=== PATIENT | male | born 1970 | race Caucasian/White ===

== ENCOUNTER 2019-05-26 17:48 | Inpatient (IN) | payer MEDICAID ==
[~2019-05-26] VITALS: Ht 180.3 cm; Wt 87.5 kg
[2019-05-26 20:00] VITALS: BP 145/82
--- NOTE | 2019-05-26 20:00 | NUR ---
ADMISSION 48 y/o male admitted for shortness of breath. Place on 2LPM via NC, denies anxiety. Ambulates independently. Skin intact. Orientation to room, unit, staff. Instructed to use call light for assistance, verbalized understanding.
[2019-05-27] VITALS: BP 132/87
[2019-05-27] MEDS ORDERED: ENOXAPARIN SODIUM 40 MG/0.4 ML DISP.SYRIN SQ SCH
[2019-05-27] MEDS ORDERED: HYDROCODONE/APAP 5/325MG 1 EACH TABLET PO PRN
[2019-05-27] MEDS ORDERED: Z GUARD REMEDY 2 OZ OINT TP PRN
[2019-05-27] MEDS ORDERED: MAG HYDROX/AL HYDROX/SIMETH 30 ML UDC PO PRN
[2019-05-27] MEDS ORDERED: MAGNESIUM HYDROXIDE 30 ML UDC PO PRN
[2019-05-27] MEDS ORDERED: ACETAMINOPHEN 325 MG TABLET PO PRN
[2019-05-27] MEDS ORDERED: ONDANSETRON HCL/PF 4 MG/2 ML VIAL IVP PRN
[2019-05-27 00:15] VITALS: BP 132/87
[2019-05-27] MEDS: ENOXAPARIN SODIUM 40 MG/0.4 ML DISP.SYRIN SQ SCH ×2 (01:27→21:47)
--- NOTE | 2019-05-27 06:28 | NUR ---
END OF SHIFT REPORT Patient in bed, awake, A/O x4. On supplemental Oxygen at 2LPM via NC, shortness of breath with exertion, denies at rest. Ambulates independently, voiding without difficulty. Lab today as planned, MRSA surveillance specimen send to lab. Will endorse to Oncoming RN.
[2019-05-27] MEDS ORDERED: INFLUENZA VACCINE 2019-20 0.5 ML DISP.SYRIN IM ONE (06:30)
[2019-05-27 07:25] LABS: BASOPHILS # (AUTO) 0.1 /CMM (0.0-0.2); BASOPHILS % (AUTO) 0.4 % (0.0-2.0); HEMATOCRIT 46 % (39-51); HEMOGLOBIN 15.2 g/dL (13.5-17.5); LYMPHOCYTES # (AUTO) 0.9 /CMM (0.8-4.8); MEAN CORPUSCULAR HGB CONC 33 g/dl (31.0-36.0); MEAN CORPUSCULAR VOLUME 88 fL (80-96); MONOCYTES # (AUTO) 0.8 /CMM (0.1-1.30); MONOCYTES % (AUTO) 4.2 % (2.0-12.0); NEUTROPHILS # (AUTO) 16.4 /CMM (1.8-8.9); NEUTROPHILS % (AUTO) 90.4 % (43.0-81.0); PLATELET COUNT (AUTO) 365 /CMM (150-450); RED BLOOD CELL COUNT(AUTO) 5.23 MIL/uL (4.5-6.0); WHITE BLOOD COUNT (AUTO) 18.2 K/uL (4.3-11.0)
[2019-05-27 07:29] LABS: CALCIUM, SERUM 8.6 mg/dL (8.5-10.1); CREATININE 0.7 mg/dL (0.6-1.3); MAGNESIUM 2.2 mg/dL (1.8-2.4); PHOSPHORUS 3.9 mg/dL (2.5-4.9); POTASSIUM 4.1 mmol/L (3.5-5.1)
[2019-05-27 07:42] LABS: THYROID STIMULATING HORMONE 1.847 uIU/mL (0.358-3.74)
[2019-05-27] MEDS: IPRATROPIUM NEB FS 0.5 MG/2.5 ML AMPUL.NEB NEB SCH ×4 (08:12→20:22)
[2019-05-27] MEDS: ALBUTEROL FS 2.5 MG/0.5 ML VIAL.NEB NEB SCH ×4 (08:12→20:22)
[2019-05-27 08:43] VITALS: BP 139/80
[2019-05-27] MEDS: methylPREDNISolone SOD SUCC 40 MG/ML VIAL IV SCH ×3 (09:50→17:46)
[2019-05-27] MEDS: CEFTRIAXONE 1 G in IV D5W 50 ML IV SCH (11:53)
[2019-05-27] MEDS: AZITHROMYCIN 250 MG TABLET PO SCH (12:01)
[2019-05-27 15:55] VITALS: BP 144/87
--- NOTE | 2019-05-27 19:22 | NUR ---
CHANGE OF SHIFT REPORT Patient in bed, awake. On supplemental Oxygen at 2LPM via NC, tolerating well. Appears comfortable, denies chest pain. Urine, sputum specimen to be collected. Maintained safety.
[2019-05-27 20:00] VITALS: BP 133/80
--- NOTE | 2019-05-27 21:31 | NUR ---
Patient lives with family in [place]. He is ambulatory and independent with adl's. Has no DME or homehealth reported. His family will provide ride when discharge. Addendum: 05/27/19 at 2131 by DIAMANTE MCKINLEY RN Amended: Links added.
[2019-05-27 23:07] LABS: APPEARANCE,URINE CLEAR (CLEAR); BILIRUBIN,URINE NEGATIVE (NEGATIVE); BLOOD, URINE NEGATIVE Ery/uL (NEGATIVE); COLOR,URINE YELLOW (YELLOW); KETONES,URINE NEGATIVE (NEGATIVE); LEUKOCYTE ESTERASE ,URINE NEGATIVE (NEGATIVE); NITRITE, URINE NEGATIVE (NEGATIVE); PROTEIN,URINE NEGATIVE (NEGATIVE); UGLUCOSE 250 MG/DL mg/dL (NEGATIVE); UROBILINOGEN,URINE 0.2 EU/dL (0.2)
--- NOTE | 2019-05-28 06:10 | NUR ---
END OF SHIFT REPORT Patient in bed, awake, A/O x4. Remains on supplemental Oxygen at 2LPM via NC, denies shortness of breath at rest and with exertion. IV antibiotic as scheduled, no acute events overnight. Respiratory cx G/S pending, sputum not available at this time. Will endorse to Oncoming RN.
[2019-05-28 07:01] LABS: BASOPHILS % (AUTO) 0.1 % (0.0-2.0); HEMATOCRIT 47 % (39-51); HEMOGLOBIN 15.6 g/dL (13.5-17.5); LYMPHOCYTES % (AUTO) 5.2 % (20.0-44.0); MEAN CORPUSCULAR HGB CONC 33 g/dl (31.0-36.0); MEAN CORPUSCULAR VOLUME 88 fL (80-96); MONOCYTES # (AUTO) 0.8 /CMM (0.1-1.30); MONOCYTES % (AUTO) 4.1 % (2.0-12.0); NEUTROPHILS # (AUTO) 17.6 /CMM (1.8-8.9); NEUTROPHILS % (AUTO) 90.6 % (43.0-81.0); PLATELET COUNT (AUTO) 373 /CMM (150-450); RED BLOOD CELL COUNT(AUTO) 5.33 MIL/uL (4.5-6.0); WHITE BLOOD COUNT (AUTO) 19.5 K/uL (4.3-11.0)
[2019-05-28 07:07] LABS: CALCIUM, SERUM 8.8 mg/dL (8.5-10.1); CREATININE 0.7 mg/dL (0.6-1.3); MAGNESIUM 2.2 mg/dL (1.8-2.4); POTASSIUM 4.2 mmol/L (3.5-5.1)
--- NOTE | 2019-05-28 08:00 | NUR ---
m/s street light servicer: initial assessment received pt in bed awake, a/ox4. no c/o pain, sob, or any discomfort. pt feels much better as stated. no wheezing to andre lobes noted at this time. instructed to call for assistance. will continue to monitor.
[2019-05-28] MEDS: ALBUTEROL FS 2.5 MG/0.5 ML VIAL.NEB NEB SCH ×2 (08:27→11:57)
[2019-05-28] MEDS: IPRATROPIUM NEB FS 0.5 MG/2.5 ML AMPUL.NEB NEB SCH ×2 (08:27→11:57)
[2019-05-28] MEDS: methylPREDNISolone SOD SUCC 40 MG/ML VIAL IV SCH (09:05)
[2019-05-28 09:57] VITALS: BP 116/77
--- NOTE | 2019-05-28 10:00 | NUR ---
m/s apparatus cleaner: md visit seen and examined by zachery whittington (acnp) at this time. pt for discharge planning home today. discharge instructions with prescriptions given by zachery pt verbalized understanding. informed pt to wait to get his flu vaccine once he feels better per dmitriy, pt verbalized understanding.
[2019-05-28] MEDS ORDERED: METH4TAB3 PO (10:01)
[2019-05-28] MEDS ORDERED: AZIT250T PO (10:01)
[2019-05-28] MEDS ORDERED: ALBU18HF2 INH (10:01)
[2019-05-28] MEDS: CEFTRIAXONE 1 G in IV D5W 50 ML IV SCH (11:06)
--- NOTE | 2019-05-28 11:33 | NUR ---
EXTRACTION MACHINE OPERATOR and pt's RN Jake met with the pt. bedside to discuss discharge plan. Pt. denies being homeless and lives with this mother in [place]. Pt stated, his mother will be coming to pick him up.
[2019-05-28] MEDS: AZITHROMYCIN 250 MG TABLET PO SCH (11:53)
--- NOTE | 2019-05-28 12:00 | NUR ---
m/s criminal profiler: notes discharge instructions given with e script prescriptions to pt and verbalized understanding. mother will pick him up in an hour per telephone conversation. pt made aware.
--- NOTE | 2019-05-28 13:00 | NUR ---
m/s security patrol driver: notes still awaiting for family to pick him up. pt resting comfortable. no distress noted.
--- NOTE | 2019-05-28 14:40 | NUR ---
m/s nutrition club ambassador: notes father here to picking machine operator helper the pt, mother couldn't make it due to previous appointment per family. h/l removed with tip intact. pt getting ready. all belongings/valuables returned to pt.
--- NOTE | 2019-05-28 14:48 | NUR ---
m/s insight leader: discharged discharged home accompanied by father via private car in stable condition with all valuables and d'c papers.
== END 2019-05-28 14:45 | disposition home or self-care (01) | DRG 140 ==
LOC: TELE 20:39 → MED 05-27 01:38
PROVIDERS: ADMIT Nurse Practitioner Acute Care; ATTEND Registered Nurse
DX: J44.1 Chronic obstructive pulmonary disease with (acute) exacerbation (principal); J15.9 Unspecified bacterial pneumonia; Z82.5 Family history of asthma and other chronic lower respiratory diseases; Z87.891 Personal history of nicotine dependence; Z83.3 Family history of diabetes mellitus; Z98.890 Other specified postprocedural states; J40 Bronchitis, not specified as acute or chronic
CPT/HCPCS: 36415; 80048-TC; 80061-TC; 81000-TC; 83735-TC; 84100-TC; 84443-TC; 85025-TC; 87081-TC; G0378; J0696; J1650; J2920; J7060

== ENCOUNTER 2019-08-11 10:59 | Emergency (ER) | payer MEDICAID ==
[~2019-08-11] VITALS: Ht 180.3 cm; Wt 91.2 kg
[~2019-08-11 10:59] MED LIST: ALBU18HF2 INH; AZIT250T PO; METH4TAB3 PO
[2019-08-11 12:19] LABS: BASOPHILS # (AUTO) 0.1 /CMM (0.0-0.2); BASOPHILS % (AUTO) 1.3 % (0.0-2.0); EOSINOPHILS % (AUTO) 6.7 % (0.0-6.0); HEMATOCRIT 44 % (39-51); HEMOGLOBIN 15.1 g/dL (13.5-17.5); LYMPHOCYTES # (AUTO) 1.7 /CMM (0.8-4.8); LYMPHOCYTES % (AUTO) 18.6 % (20.0-44.0); MEAN CORPUSCULAR HGB CONC 34 g/dl (31.0-36.0); MEAN CORPUSCULAR VOLUME 88 fL (80-96); MONOCYTES # (AUTO) 0.5 /CMM (0.1-1.30); MONOCYTES % (AUTO) 5.6 % (2.0-12.0); NEUTROPHILS # (AUTO) 6.3 /CMM (1.8-8.9); NEUTROPHILS % (AUTO) 67.8 % (43.0-81.0); PLATELET COUNT (AUTO) 346 /CMM (150-450); RED BLOOD CELL COUNT(AUTO) 5.05 MIL/uL (4.5-6.0); WHITE BLOOD COUNT (AUTO) 9.2 K/uL (4.3-11.0)
[2019-08-11 12:21] LABS: CARBON DIOXIDE 32 mmol/L (21-32); CHLORIDE 106 mmol/L (98-107); CREATININE 1.3 mg/dL (0.6-1.3); GLUCOSE 170 mg/dL (74-106); SODIUM SERUM 142 mmol/L (136-145); UREA NITROGEN, BLOOD 17 mg/dL (7-18)
[2019-08-11 12:34] LABS: ALANINE AMINOTRANSFERASE 13 U/L (12-78); ALBUMIN 3.5 g/dL (3.4-5.0); ALKALINE PHOSPHATASE 72 U/L (46-116); ASPARTATE AMINOTRANSFERASE 3 U/L (15-37); B-TYPE NATRIURETIC PEPTIDE 46 PG/ML (0-125); BILIRUBIN,DIRECT 0.1 mg/dL (0.0-0.2); BILIRUBIN,TOTAL 0.5 mg/dL (0.2-1.0); TOTAL PROTEIN, SERUM 7.2 g/dL (6.4-8.2)
[2019-08-11] MEDS ORDERED: predniSONE 50 MG TABLET PO ONE (13:00)
[2019-08-11] MEDS ORDERED: ALBUTEROL FS 2.5 MG/3 ML VIAL.NEB NEB ONE (13:00)
[2019-08-11] MEDS ORDERED: IPRATROPIUM NEB FS 0.5 MG/2.5 ML AMPUL.NEB NEB ONE (13:00)
[2019-08-11] MEDS ORDERED: ALBUTEROL SULFATE 8 GM HFA.AER.AD IH ONE (13:00)
[2019-08-11] MEDS ORDERED: predniSONE 20 MG TABLET ONE (13:35)
[2019-08-11] MEDS ORDERED: predniSONE 10 MG TABLET ONE (13:35)
[2019-08-11 13:47] VITALS: BP 139/85
== END 2019-08-11 13:47 | disposition home or self-care (01) ==
LOC: ER 10:59
DX: R06.00 Dyspnea, unspecified (principal); Z79.899 Other long term (current) drug therapy
CPT/HCPCS: 36415; 71045; 80048; 80076; 83880; 84484; 85025; 93005; 99285; J7512 ×2

== ENCOUNTER 2019-08-26 01:56 | Emergency (ER) | payer MEDICAID ==
[~2019-08-26] VITALS: Ht 180.3 cm; Wt 95.3 kg
[2019-08-26] MEDS ORDERED: methylPREDNISolone SOD SUCC 125 MG/2ML VIAL ONE (02:10)
--- NOTE | 2019-08-26 02:10 | NUR ---
PATIENT CAME TO ER BED 5 C/O SOB. PATIENT STATES THAT HE WAS HAVING DIFFICULTY BREATHING SINCE LAST NIGHT WHILE ATTEMPTING TO SLEEP. WHEEZES AUSCULTATED BILATERALLY UPPER AND LOWER LOBES. PATIENT STATES THAT HE WAS DIAGNOSED. AAOX4. BREATHING EVENLY AND UNLABORED ON ROOM AIR.
[2019-08-26] MEDS ORDERED: IPRATROPIUM NEB FS 0.5 MG/2.5 ML AMPUL.NEB ONE (02:14)
[2019-08-26] MEDS ORDERED: ALBUTEROL FS 2.5 MG/3 ML VIAL.NEB ONE (02:14)
--- NOTE | 2019-08-26 02:18 | NUR ---
BLOOD DRAWN AND SENT WITH DATA REVIEW SPECIALIST.
--- NOTE | 2019-08-26 02:23 | NUR ---
RT AT BEDSIDE
--- NOTE | 2019-08-26 02:28 | NUR ---
PATIENT ON BREATHING TREATMENT.
[2019-08-26 02:29] LABS: BASOPHILS # (AUTO) 0.1 /CMM (0.0-0.2); BASOPHILS % (AUTO) 0.8 % (0.0-2.0); HEMATOCRIT 52 % (39-51); HEMOGLOBIN 17.3 g/dL (13.5-17.5); LYMPHOCYTES # (AUTO) 1.3 /CMM (0.8-4.8); LYMPHOCYTES % (AUTO) 10.7 % (20.0-44.0); MEAN CORPUSCULAR HGB CONC 33 g/dl (31.0-36.0); MEAN CORPUSCULAR VOLUME 88 fL (80-96); MONOCYTES # (AUTO) 0.8 /CMM (0.1-1.30); NEUTROPHILS # (AUTO) 9.1 /CMM (1.8-8.9); NEUTROPHILS % (AUTO) 75.5 % (43.0-81.0); PLATELET COUNT (AUTO) 343 /CMM (150-450); RED BLOOD CELL COUNT(AUTO) 5.98 MIL/uL (4.5-6.0)
[2019-08-26 02:30] LABS: ABG BASE EXCESS -3.7 mmol/L; ABG OXYGEN SATURATION 92.6 % (92.0-98.5); ABG PCO2 34.8 mmHg (35.0-45.0); ABG PH 7.386 (7.350-7.450); ABG PO2 61.4 mmHg (75.0-100.0); AaDO2 46.7 mmHg; COHb 0.3 % (0.5-1.5); MetHb 0.4 % (0.0-1.5); SITE, ABG Left Radial; VENT MODE, BG RA
[2019-08-26] MEDS ORDERED: ALBUTEROL FS 2.5 MG/3 ML VIAL.NEB CONTNEB ONE (02:30)
[2019-08-26] MEDS ORDERED: methylPREDNISolone SOD SUCC 125 MG/2ML VIAL IV ONE (02:30)
[2019-08-26] MEDS ORDERED: IPRATROPIUM NEB FS 0.5 MG/2.5 ML AMPUL.NEB NEB ONE (02:30)
[2019-08-26 02:36] LABS: CALCIUM, SERUM 9.6 mg/dL (8.5-10.1); CARBON DIOXIDE 26 mmol/L (21-32); CHLORIDE 99 mmol/L (98-107); CREATININE 1.4 mg/dL (0.6-1.3); GLUCOSE 144 mg/dL (74-106); POTASSIUM 3.6 mmol/L (3.5-5.1); SODIUM SERUM 138 mmol/L (136-145); UREA NITROGEN, BLOOD 24 mg/dL (7-18)
[2019-08-26 02:42] LABS: ALANINE AMINOTRANSFERASE 37 U/L (12-78); ALKALINE PHOSPHATASE 77 U/L (46-116); ASPARTATE AMINOTRANSFERASE 22 U/L (15-37); BILIRUBIN,DIRECT 0.1 mg/dL (0.0-0.2); BILIRUBIN,TOTAL 0.9 mg/dL (0.2-1.0); TOTAL PROTEIN, SERUM 8.1 g/dL (6.4-8.2)
--- NOTE | 2019-08-26 05:51 | NUR ---
Patient discharged to home in stable condition. Written and verbal after care instructions given. Patient verbalizes understanding of instruction.
--- NOTE | 2019-08-26 05:51 | NUR ---
IV removed. Catheter intact and site benign. Pressure and 4x4 applied to site. No bleeding noted.
[2019-08-26 05:52] VITALS: BP 131/79
== END 2019-08-26 05:53 | disposition home or self-care (01) ==
LOC: ER 01:59
DX: J44.9 Chronic obstructive pulmonary disease, unspecified (principal); Z79.899 Other long term (current) drug therapy
CPT/HCPCS: 36415; 36600 ×2; 71045; 80048; 80076; 82803; 84484; 85025; 93005; 94644; 96374; 99285; J2930

== ENCOUNTER 2019-12-04 12:23 | Emergency (ER) | payer MEDICAID ==
[~2019-12-04] VITALS: Ht 180.3 cm; Wt 97.5 kg
--- NOTE | 2019-12-04 12:37 | NUR ---
came in for "sob since yesterday, run out of inhaler x 3 days" , to ER bed 8, hooked to monitor, 97% on RA, hx of COPD. changed to hosp gown, warm blanket provided, Dr Khan at bedside
[2019-12-04] MEDS ORDERED: predniSONE 20 MG TABLET ONE (12:46)
--- NOTE | 2019-12-04 12:56 | NUR ---
DIAZ VIRUS SWAB DONE AND SENT TO LAB
[2019-12-04] MEDS ORDERED: ALBUTEROL FS 2.5 MG/3 ML VIAL.NEB ONE (13:00)
[2019-12-04] MEDS ORDERED: ALBUTEROL FS 2.5 MG/3 ML VIAL.NEB CONTNEB ONE (13:00)
[2019-12-04] MEDS ORDERED: IPRATROPIUM NEB FS 0.5 MG/2.5 ML AMPUL.NEB NEB ONE (13:00)
[2019-12-04] MEDS ORDERED: IPRATROPIUM NEB FS 0.5 MG/2.5 ML AMPUL.NEB ONE (13:00)
[2019-12-04] MEDS ORDERED: predniSONE 20 MG TABLET PO ONE (13:00)
--- NOTE | 2019-12-04 13:09 | NUR ---
RT AT BEDSIDE FOR BREATHING TX
[2019-12-04 13:57] VITALS: BP 146/81
--- NOTE | 2019-12-04 13:57 | NUR ---
Patient discharged to home in stable condition. Written and verbal after care instructions given. Patient verbalizes understanding of instruction.
== END 2019-12-04 13:59 | disposition home or self-care (01) ==
LOC: ER 12:23
DX: J44.9 Chronic obstructive pulmonary disease, unspecified (principal); Z87.891 Personal history of nicotine dependence; Z20.828 Contact with and (suspected) exposure to other viral communicable diseases
CPT/HCPCS: 71045; 94640; 99284; C9803; J7512; U0003

== ENCOUNTER 2020-01-20 21:59 | Emergency (ER) | payer MEDICAID ==
[~2020-01-20] VITALS: Ht 180.3 cm; Wt 90.3 kg
--- NOTE | 2020-01-20 22:20 | NUR ---
PT BIBSELF C/O PRODUCTIVE COUGH, WHITE SPUTUM, WITH DIFFICULTY BREATHING. PT STATES HE WAS ATTEMPTING TO USE ALBUTEROL AT HOME, NO RELIEF. O2 SAT 92% ON ROOM AIR. PT AAOX4. RESPIRATIONS EVEN AND UNLABORED. SKIN WARM AND INTACT. NO ACUTE DISTRESS NOTED AT THIS TIME. WILL CONTINUE TO MONITOR.
[2020-01-20] MEDS: ALBUTEROL FS 2.5 MG/0.5 ML VIAL.NEB NEB STA (22:33)
[2020-01-20] MEDS: IPRATROPIUM NEB FS 0.5 MG/2.5 ML AMPUL.NEB NEB STA (22:33)
[2020-01-20] MEDS ORDERED: ALBUTEROL FS 2.5 MG/3 ML VIAL.NEB ONE (22:37)
[2020-01-20] MEDS ORDERED: IPRATROPIUM NEB FS 0.5 MG/2.5 ML AMPUL.NEB ONE (22:37)
[2020-01-20] MEDS ORDERED: predniSONE 20 MG TABLET ONE (22:40)
--- NOTE | 2020-01-20 22:40 | NUR ---
RT AT BEDSIDE FOR BREATHING TREATMENT
[2020-01-20] MEDS: predniSONE 50 MG TABLET PO ONE (22:42)
[2020-01-21 00:11] VITALS: BP 148/91
== END 2020-01-21 00:11 | disposition home or self-care (01) ==
LOC: ER 22:02
DX: J44.9 Chronic obstructive pulmonary disease, unspecified (principal); Z87.891 Personal history of nicotine dependence; Z79.899 Other long term (current) drug therapy
CPT/HCPCS: 94644; 99285; J7512

== ENCOUNTER 2020-02-04 07:09 | Emergency (ER) | payer MEDICAID ==
[~2020-02-04] VITALS: Ht 180.3 cm; Wt 86.2 kg
--- NOTE | 2020-02-04 07:25 | NUR ---
PT AAOX4. BIBSELF C/O NEEDING BREATHING TREATMENT DUE TO HIM HAVING COPD EXACERBATION. NO ACUTE DISTRESS NOTED. AWAITING MD FOR EVAL AND ORDERS.
--- NOTE | 2020-02-04 07:30 | NUR ---
DR GILLIAM AT BEDSIDE
[2020-02-04] MEDS ORDERED: predniSONE 20 MG TABLET ONE (08:02)
[2020-02-04] MEDS: predniSONE 20 MG TABLET PO ONE (08:04)
[2020-02-04] MEDS ORDERED: ALBUTEROL FS 2.5 MG/3 ML VIAL.NEB ONE (08:06)
[2020-02-04] MEDS ORDERED: IPRATROPIUM NEB FS 0.5 MG/2.5 ML AMPUL.NEB ONE (08:06)
[2020-02-04] MEDS: IPRATROPIUM NEB FS 0.5 MG/2.5 ML AMPUL.NEB NEB ONE (08:09)
[2020-02-04] MEDS: ALBUTEROL FS 2.5 MG/3 ML VIAL.NEB NEB ONE (08:09)
--- NOTE | 2020-02-04 08:12 | NUR ---
ONGOING BREATHING TX
--- NOTE | 2020-02-04 09:12 | NUR ---
Patient discharged to home in stable condition. Written and verbal after care instructions given. Patient verbalizes understanding of instruction.
[2020-02-04 10:47] VITALS: BP 137/90
== END 2020-02-04 09:14 | disposition home or self-care (01) ==
LOC: ER 07:12
DX: J44.9 Chronic obstructive pulmonary disease, unspecified (principal); Z79.899 Other long term (current) drug therapy; Z87.891 Personal history of nicotine dependence
CPT/HCPCS: 94644; 99285; J7512

== ENCOUNTER 2020-02-26 05:11 | Inpatient (IN) | payer MEDICAID ==
[~2020-02-26] VITALS: Ht 180.3 cm; Wt 89.8 kg
--- NOTE | 2020-02-26 05:22 | NUR ---
CALLED RT FOR BEATHING TX
[2020-02-26] MEDS ORDERED: predniSONE 20 MG TABLET ONE (05:24)
[2020-02-26] MEDS ORDERED: IPRATROPIUM NEB FS 0.5 MG/2.5 ML AMPUL.NEB ONE ×2 (05:29→06:41)
[2020-02-26] MEDS ORDERED: ALBUTEROL FS 2.5 MG/3 ML VIAL.NEB ONE ×2 (05:29→06:41)
--- NOTE | 2020-02-26 05:29 | NUR ---
PT AAOX4. BIBSELF C/O "I'M HAVING COPD EXACERBATION, I NEED A BREATHING TX. PT C/O SOB AND SAT 89% UPON PLACING HIM ON MONITOR. MD AWARE. BREATHING TREATMENT WILL BE GIVEN. RT CALLED. NO ACUTE DISTRESS NOTED. VSS.
[2020-02-26] MEDS ORDERED: IPRATROPIUM NEB FS 0.5 MG/2.5 ML AMPUL.NEB NEB ONE ×2 (05:30→06:30)
[2020-02-26] MEDS ORDERED: ALBUTEROL FS 2.5 MG/3 ML VIAL.NEB NEB ONE (05:30)
[2020-02-26] MEDS ORDERED: predniSONE 20 MG TABLET PO ONE (05:30)
--- NOTE | 2020-02-26 06:26 | NUR ---
EMT AT BEDSIDE FOR EKG
[2020-02-26] MEDS ORDERED: Magnesium 1GM/D5W 100ML PREMIX 200 ML IV ONE ×2 (06:28→06:30)
[2020-02-26] MEDS ORDERED: ALBUTEROL FS 2.5 MG/3 ML VIAL.NEB CONTNEB ONE (06:30)
--- NOTE | 2020-02-26 06:42 | NUR ---
CALLED RADIOLOGY REGARDING CHEST XRAY.
--- NOTE | 2020-02-26 06:42 | NUR ---
RT AT BEDSIDE
[2020-02-26 06:44] LABS: BASOPHILS # (AUTO) 0.1 /CMM (0.0-0.2); BASOPHILS % (AUTO) 1.4 % (0.0-2.0); EOSINOPHILS % (AUTO) 7.7 % (0.0-6.0); HEMATOCRIT 49 % (39-51); LYMPHOCYTES # (AUTO) 1.4 /CMM (0.8-4.8); LYMPHOCYTES % (AUTO) 17.2 % (20.0-44.0); MEAN CORPUSCULAR HGB CONC 33 g/dl (31.0-36.0); MEAN CORPUSCULAR VOLUME 85 fL (80-96); MONOCYTES # (AUTO) 0.5 /CMM (0.1-1.30); MONOCYTES % (AUTO) 6.5 % (2.0-12.0); NEUTROPHILS # (AUTO) 5.5 /CMM (1.8-8.9); NEUTROPHILS % (AUTO) 67.2 % (43.0-81.0); PLATELET COUNT (AUTO) 321 /CMM (150-450); RED BLOOD CELL COUNT(AUTO) 5.69 MIL/uL (4.5-6.0); WHITE BLOOD COUNT (AUTO) 8.2 K/uL (4.3-11.0)
[2020-02-26 06:48] LABS: CALCIUM, SERUM 8.9 mg/dL (8.5-10.1); CARBON DIOXIDE 26 mmol/L (21-32); CHLORIDE 98 mmol/L (98-107); CREATININE 1.1 mg/dL (0.6-1.3); GLUCOSE 139 mg/dL (74-106); POTASSIUM 3.7 mmol/L (3.5-5.1); SODIUM SERUM 124 mmol/L (136-145); UREA NITROGEN, BLOOD 15 mg/dL (7-18)
--- NOTE | 2020-02-26 06:59 | NUR ---
CALLED FOR COVID SWAB
[2020-02-26 07:06] LABS: ALANINE AMINOTRANSFERASE 30 U/L (12-78); ALBUMIN 3.4 g/dL (3.4-5.0); ALKALINE PHOSPHATASE 71 U/L (46-116); ASPARTATE AMINOTRANSFERASE 17 U/L (15-37); B-TYPE NATRIURETIC PEPTIDE 64 PG/ML (0-125); BILIRUBIN,DIRECT 0.1 mg/dL (0.0-0.2); BILIRUBIN,TOTAL 0.6 mg/dL (0.2-1.0); TOTAL PROTEIN, SERUM 7.3 g/dL (6.4-8.2)
--- NOTE | 2020-02-26 07:08 | NUR ---
COVID SWABBED, SENT TO LAB
[2020-02-26] MEDS ORDERED: IV NS 0.9% 1,000 ML BAG IV ONE (07:30)
--- NOTE | 2020-02-26 07:46 | NUR ---
received a call from yudy NORWOOD from [facility] gave verbal auth to admit patient here.
--- NOTE | 2020-02-26 07:49 | NUR ---
EPIC CALLED. DR CLARKE PAGED. AWAITING CALL BACK.
--- NOTE | 2020-02-26 07:49 | NUR ---
called house sup for tele bed
[2020-02-26] MEDS ORDERED: Z GUARD REMEDY 2 OZ OINT TP PRN (08:30)
[2020-02-26] MEDS ORDERED: ONDANSETRON HCL/PF 4 MG/2 ML VIAL IVP PRN (08:30)
[2020-02-26] MEDS ORDERED: HYDROCODONE/APAP 5/325MG TABLET PO PRN (08:30)
[2020-02-26] MEDS ORDERED: ACETAMINOPHEN 325 MG TABLET PO PRN (08:30)
[2020-02-26] MEDS ORDERED: MAGNESIUM HYDROXIDE 30 ML UDC PO PRN (08:30)
[2020-02-26] MEDS ORDERED: MAG HYDROX/AL HYDROX/SIMETH 30 ML UDC PO PRN (08:30)
--- NOTE | 2020-02-26 09:22 | NUR ---
room 312-1
--- NOTE | 2020-02-26 09:42 | NUR ---
report given to Kareem STREET for vickie
[2020-02-26 10:00] VITALS: BP 133/94
--- NOTE | 2020-02-26 11:24 | NUR ---
COUNTRY DIRECTOR ADMITTING NOTES ADMITTED PT TO UNIT VIA [facility] AT 0950. PT ABLE TO AMBULATE WITH STEADY GAIT. A/O X4. ABLE TO MAKE NEEDS KNOWN, DENIES PAIN OR SOB AT THIS TIME. PT ORIENTED TO STAFF AND ROOM. ON ROOM AIR, TOLERATING WELL. V/S TAKEN, STABLE AND RECORDED. SKIN IS INTACT. IV ACCESS NOTED ON RIGHT HAND G#20 INTACT AND PATENT. PT PLACED ON TELEMONITORING WITH CURRENT READING OF NSR AND HR ON THE 80'S, NO C/O CARDIAC DISTRESS VOICED. SAFETY MEASURES INITIATED: BED PLACED IN LOWEST LOCKED POSITION WITH SR UPX2. CALL LIGHT PLACED W/IN EASY REACH OF PT. WILL CONTINUE TO MONITOR PT ACCORDINGLY.
[2020-02-26 12:00] VITALS: BP 151/93
[2020-02-26] MEDS: methylPREDNISolone SOD SUCC 40 MG/ML VIAL IV SCH ×3 (12:10→23:28)
[2020-02-26 16:00] VITALS: BP 154/86
[2020-02-26] MEDS: IPRATROPIUM NEB FS 0.5 MG/2.5 ML AMPUL.NEB NEB PRN ×2 (16:19→23:43)
[2020-02-26] MEDS: ALBUTEROL FS 2.5 MG/3 ML VIAL.NEB NEB PRN ×2 (16:19→23:43)
--- NOTE | 2020-02-26 16:32 | NUR ---
RN NOTES PT C/O SOB AND PRODUCTIVE COUGH WITH ALIGHTLY THICK WHITTISH SECRETIONS NOTED. 02 VIA N/C @ 1LPM ADMINISTERED. BREATHING TX GIVEN BY RT. DR CLARKE ON UNIT AND MADE AWARE. WILL CONTINUE TO MONITOR
--- NOTE | 2020-02-26 18:46 | NUR ---
AXMINSTER WEAVER CLOSING NOTES PT RESTING IN BED WATCHING TV @ THIS TIME. A/O X4. ABLE TO MAKE NEEDS KNOWN. ON PRN 02 VIA N/C @ 1LPM AT THIS TIME, TOLERATING WELL, BREATHING EVEN AND UNLABORED. TELEMONITORING SHOWS NSR WITH HR ON THE 80-90'S, NO C/O CARDIAC DISTRESS VOICED. IV ACCESS ON RIGHT HAND G#20 INTACT AND PATENT, NO S/S OF INFILTRATION AT SITE NOTED. SAFETY MEASURES KEPT IN PLACE: BED IN LOWEST LOCKED POSITION WITH SR UPX2. CALL LIGHT W/IN EASY REACH OF PT. WILL ENDORSE JESSICA TO INCOMING NIGHT NURSE.
[2020-02-26] MEDS: LEVOFLOXACIN 500 MG /D5W 100ML 500 MG in PREMIX 1 EA IV SCH (18:59)
--- NOTE | 2020-02-26 19:30 | NUR ---
RN NOTES RECEIVED PT. AWAKE ON BED,. A/OX4, SR WITH BBB ON TELE MONITOR HR-85, NOT IN DISTRESS, DENIES PAIN, BED IN LOCKED POSITION, CALL LIGHT WITHIN REACH, [id number], CONTINUE TO MONITOR
[2020-02-26 20:00] VITALS: BP 137/62
[2020-02-26] MEDS: ZOLPIDEM TARTRATE 5 MG TABLET PO PRN (23:28)
[2020-02-27] VITALS: BP 142/95
[2020-02-27 04:00] VITALS: BP 159/88
[2020-02-27] MEDS: methylPREDNISolone SOD SUCC 40 MG/ML VIAL IV SCH ×4 (05:33→23:21)
--- NOTE | 2020-02-27 06:35 | NUR ---
RN NOTES SLEEPING BUT AROUSABLE, NOT IN DISTRESS, NO PAIN NOTED, CALL LIGHT WITHIN REACH, [id number], PT. NEEDS ATTENDED
[2020-02-27 06:42] LABS: BASOPHILS # (AUTO) 0.1 /CMM (0.0-0.2); BASOPHILS % (AUTO) 0.5 % (0.0-2.0); EOSINOPHILS % (AUTO) 0.3 % (0.0-6.0); HEMATOCRIT 50 % (39-51); HEMOGLOBIN 16.6 g/dL (13.5-17.5); LYMPHOCYTES # (AUTO) 0.5 /CMM (0.8-4.8); LYMPHOCYTES % (AUTO) 2.8 % (20.0-44.0); MEAN CORPUSCULAR HGB CONC 33 g/dl (31.0-36.0); MEAN CORPUSCULAR VOLUME 86 fL (80-96); MONOCYTES # (AUTO) 0.3 /CMM (0.1-1.30); MONOCYTES % (AUTO) 1.6 % (2.0-12.0); NEUTROPHILS # (AUTO) 15.3 /CMM (1.8-8.9); NEUTROPHILS % (AUTO) 94.8 % (43.0-81.0); PLATELET COUNT (AUTO) 345 /CMM (150-450); RED BLOOD CELL COUNT(AUTO) 5.79 MIL/uL (4.5-6.0); WHITE BLOOD COUNT (AUTO) 16.1 K/uL (4.3-11.0)
[2020-02-27 07:01] LABS: CALCIUM, SERUM 9.1 mg/dL (8.5-10.1); CREATININE 1.1 mg/dL (0.6-1.3); MAGNESIUM 2.5 mg/dL (1.8-2.4); PHOSPHORUS 4.4 mg/dL (2.5-4.9); POTASSIUM 4.3 mmol/L (3.5-5.1)
[2020-02-27 07:03] LABS: THYROID STIMULATING HORMONE 0.548 uIU/mL (0.358-3.74)
--- NOTE | 2020-02-27 07:45 | NUR ---
RN NOTE THE PATIENT IS RECEIVED IN BED. THE PATIENT IS ALERT AND ORIENTED X4. DENIES PAIN. PATIENT IS RECEIVING OXYGEN AT 12L/MIN NASAL CANNULA AND DENIES SOB. RESPIRATION REGULAR AND UNLABORED. THE PATIENT IN NO APPARENT DISTRESS. RIGHT HAND G 20 PATENT AND SALINE LOCKED. BED LOW AND LOCKED. SIDE RAILS UP X2. CALL LIGHT WITHIN REACH. WILL CONTINUE TO MONITOR.
[2020-02-27 08:29] VITALS: BP 148/104
[2020-02-27] MEDS: PANTOPRAZOLE 40 MG TABLET.DR PO SCH (08:36)
[2020-02-27] MEDS: IPRATROPIUM NEB FS 0.5 MG/2.5 ML AMPUL.NEB NEB PRN ×3 (11:03→23:48)
[2020-02-27] MEDS: ALBUTEROL FS 2.5 MG/3 ML VIAL.NEB NEB PRN ×3 (11:03→23:47)
[2020-02-27 16:54] VITALS: BP 133/88
[2020-02-27] MEDS: LEVOFLOXACIN 500 MG /D5W 100ML 500 MG in PREMIX 1 EA IV SCH (18:18)
--- NOTE | 2020-02-27 18:42 | NUR ---
RN NOTE PATIENT ALERT AND ORIENTED X4. DENIES PAIN. RECEIVING OXYGEN AT 2L/MIN VIA NASAL CANNULA AND SATURATION IS AT 92%. DENIES SOB. EXTERNAL TELE BOX READING IS SR 97. PATIENT IN NO APPARENT DISTRESS. RIGHT HAND G 20 PATENT AND SALINE LOCKED. BED LOW AND ;LOCKED. SIDE RIALS UP X2. CALL LIGHT WITHIN REACH. WILL ENDORSE TO ER MANAGER.
[2020-02-27 19:54] VITALS: BP 130/81
--- NOTE | 2020-02-27 19:57 | NUR ---
RN NOTES RECEIVED PT. SLEEPING BUT AROUSABLE, NOT IN DISTRESS, SR ON TELE MONITOR HR-75, NOT IN DISTRESS, NO PAIN NOTED, BED IN LOCKED POSITION, CALL LIGHT WITHIN REACH, [id number], CONTINUE TO MONITOR
[2020-02-27 20:00] VITALS: BP 138/81
[2020-02-28] VITALS: BP 143/75
[2020-02-28] MEDS: ZOLPIDEM TARTRATE 5 MG TABLET PO PRN (00:14)
[2020-02-28] MEDS: methylPREDNISolone SOD SUCC 40 MG/ML VIAL IV SCH ×4 (05:55→22:58)
--- NOTE | 2020-02-28 06:31 | NUR ---
RN NOTES SLEEPING BUT AROUSABLE, NOT IN DISTRESS, DENIES PAIN, MORNING CARE RENDERED, CALL LIGHT WITHIN REACH, [id number], PT. NEEDS ATTENDED
[2020-02-28 06:57] LABS: BASOPHILS # (AUTO) 0.1 /CMM (0.0-0.2); BASOPHILS % (AUTO) 0.4 % (0.0-2.0); HEMATOCRIT 50 % (39-51); HEMOGLOBIN 16.1 g/dL (13.5-17.5); LYMPHOCYTES # (AUTO) 0.7 /CMM (0.8-4.8); MEAN CORPUSCULAR HGB CONC 33 g/dl (31.0-36.0); MEAN CORPUSCULAR VOLUME 86 fL (80-96); MONOCYTES # (AUTO) 0.6 /CMM (0.1-1.30); MONOCYTES % (AUTO) 2.8 % (2.0-12.0); NEUTROPHILS # (AUTO) 21.2 /CMM (1.8-8.9); NEUTROPHILS % (AUTO) 93.8 % (43.0-81.0); PLATELET COUNT (AUTO) 372 /CMM (150-450); RED BLOOD CELL COUNT(AUTO) 5.74 MIL/uL (4.5-6.0); WHITE BLOOD COUNT (AUTO) 22.7 K/uL (4.3-11.0)
--- NOTE | 2020-02-28 07:15 | NUR ---
RETAIL SALES TEAMMATE NOTES RECEIVED PATIENT IN BED ASLEEP. AROUSABLE TO VERBAL AND TACTILE STIMULI. HOB ELEVATED. NO SOB. REMAIN ON O2 AT 2L/MIN VIA NC GABBY WELL. ON TELE MONITORING SR WITH PAC:66. DENIES ANY C/O PAIN NOR DISCOMFORT AT THIS TIME. RIGHT HAND # 20 SL INTACT AND PATENT. BED IN LOWEST POSITION, LOCKED. AMBULATORY WITH STEADY GAIT. FREQUENT VISUAL CHECK DONE. CALL LIGHT WITHIN REACH. ABLE TO VERBALIZE NEEDS.
[2020-02-28 07:19] LABS: CALCIUM, SERUM 9.4 mg/dL (8.5-10.1); CREATININE 1.1 mg/dL (0.6-1.3); MAGNESIUM 2.6 mg/dL (1.8-2.4); PHOSPHORUS 3.7 mg/dL (2.5-4.9); POTASSIUM 4.9 mmol/L (3.5-5.1)
[2020-02-28 08:00] VITALS: BP 146/84
[2020-02-28 08:30] VITALS: BP 94/58
[2020-02-28] MEDS: PANTOPRAZOLE 40 MG TABLET.DR PO SCH (08:31)
[2020-02-28] MEDS: IPRATROPIUM NEB FS 0.5 MG/2.5 ML AMPUL.NEB NEB SCH ×3 (11:30→20:20)
[2020-02-28] MEDS: ALBUTEROL FS 2.5 MG/3 ML VIAL.NEB NEB SCH ×3 (11:30→20:20)
[2020-02-28 12:00] VITALS: BP 130/91
[2020-02-28 16:00] VITALS: BP 118/76
[2020-02-28 17:01] LABS: URINE SODIUM, RANDOM 76 mmol/l (40-220)
[2020-02-28 17:43] LABS: OSMOLALITY,URINE 589 mOS/kg (340-1090)
[2020-02-28] MEDS: LEVOFLOXACIN 500 MG /D5W 100ML 500 MG in PREMIX 1 EA IV SCH (17:51)
--- NOTE | 2020-02-28 19:36 | NUR ---
RADIOLOGIC TECH NOTES PATIENT RESTING COMFORTABLY IN BED WATCHING TV. ALERT AND ORIENTED X4. NO S/S OF RESPIRATORY DISTRESS. REMAIN ON O2 AT 2L/MIN VIA NC GABBY WELL. DENIES ANY C/O PAIN NOR DISCOMFORT AT THIS TIME. LEFT FA # 22 SL INTACT AND PATENT. BED IN LOWEST POSITION, LOCKED. CALL LIGHT WITHIN REACH. ABLE TO VERBALIZE NEEDS. IN NO APPARENT DISTRESS.
[2020-02-28 20:00] VITALS: BP 135/85
[2020-02-28] MEDS ORDERED: diphenhydrAMINE HCL 25 MG CAPSULE PO PRN (22:30)
[2020-02-29] VITALS: BP 125/94
[2020-02-29 04:00] VITALS: BP 140/74
[2020-02-29] MEDS: methylPREDNISolone SOD SUCC 40 MG/ML VIAL IV SCH ×2 (06:20→13:23)
--- NOTE | 2020-02-29 06:23 | NUR ---
spoke with armando gregorio regaurding bp at 0400 with sbp above 170. new order for hydralazine recieved. at this time bp went down to 152/91 will cont to monitor. so no hydralizaine given. Addendum: 02/29/20 at 0632 by ELIZABET PARADA RN wrong patient.
[2020-02-29 06:30] VITALS: BP 152/91
--- NOTE | 2020-02-29 07:02 | NUR ---
CABIN CLEANING SUPERVISOR PM CLOSING NOTE PATIENT RESTING COMFORTABLY IN BED WITH EYES CLOSED. NO S/S OF RESPIRATORY DISTRESS. REMAIN ON O2 AT 2L/MIN VIA NC GABBY WELL. LEFT FA # 22 SL INTACT AND PATENT. BED IN LOWEST POSITION, LOCKED. CALL LIGHT WITHIN REACH. ABLE TO VERBALIZE NEEDS. IN NO APPARENT DISTRESS.
[2020-02-29 08:00] VITALS: BP 134/81
[2020-02-29] MEDS: IPRATROPIUM NEB FS 0.5 MG/2.5 ML AMPUL.NEB NEB SCH ×2 (08:07→11:38)
[2020-02-29] MEDS: ALBUTEROL FS 2.5 MG/3 ML VIAL.NEB NEB SCH ×2 (08:07→11:38)
[2020-02-29] MEDS: PANTOPRAZOLE 40 MG TABLET.DR PO SCH (09:15)
--- NOTE | 2020-02-29 10:05 | NUR ---
RN NOTES Discharge diagnosis <Acute COPD exacerbation; slowly improving, continue steroids and, breathing treatment Acute repository failure likely due to above, Hyponatremia, likely due to SIADH - resolved Leukocytosis likely secondary, to steroid margination Acute bronchitis History of chronic tobacco use> Disposition <01 HOME, SELF-CARE> Discharge instructions <02/29/2020The patient was seen and assessed at bedside; request for him to, bed is charged home Oxygen saturations were recorded at 94% on room air Plan:I, notified the court magistrate -Dr. Ghanshyam Castillo agrees-Case discussed,, agreed DC home Prednisone pack-to be tapered (Medrol Dosepak)Breo inhaler;, once a day Rescue inhaler-albuterol every 4 hours as needed for shortness, of breath and wheezing Levaquin p.o. 1 tablet daily x5 days The patient was, instructed to follow-up with the primary care physician within 1 week-he, verbalized understanding of care The patient was also instructed to refrain, secondhand smoking; he state she stopped smoking few years ago. PATIENT WILL DISCHARGE HOME SELF CARE. WILL FOLLOW PRIMARY MD.
--- NOTE | 2020-02-29 13:24 | NUR ---
rn notes patient preferred get flu vaccination before discharge.
[2020-02-29] MEDS ORDERED: INFLUENZA VACCINE 2020-21 0.5 ML DISP.SYRIN IM ONE (14:00)
--- NOTE | 2020-02-29 14:41 | NUR ---
DRAFTER TOOL DESIGN NOTES PATIENT DISCHARGE AT HIS TIME GOING HOME SELF CARE. PATIENT STABLE, V/S WNL, REFUSED PAIN, NO SOB. MED RECONCILIATION AND DISCHARGE ORDER REVIEWED AND EXPLAINED TO THE PATIENT. PATIENT VERBALIZED UNDERSTANDING. PATIENT WILL FOLLOW PRIMARY MD. PATIENT GET FLU VACCINATION BEFORE DISCHARGE. PATIENT WILL FOLLOW PCP. PRESCRIPTION HANDED TO THE PATIENT. PATIENT ESCORTED TO THE LOBBY FOR SAFETY. PATIENT WILL DRIVE HOME SELF.
== END 2020-02-29 14:30 | disposition home or self-care (01) | DRG 140 ==
LOC: ER 05:16 → TELE 09:37
PROVIDERS: ADMIT Student in an Organized Health Care Education/Training Program; ATTEND Nurse Practitioner Acute Care
DX: J44.1 Chronic obstructive pulmonary disease with (acute) exacerbation (principal); J96.01 Acute respiratory failure with hypoxia; J20.9 Acute bronchitis, unspecified; E22.2 Syndrome of inappropriate secretion of antidiuretic hormone; Z87.891 Personal history of nicotine dependence; E86.1 Hypovolemia; R63.1 Polydipsia; J44.0 Chronic obstructive pulmonary disease with (acute) lower respiratory infection; D72.828 Other elevated white blood cell count; T38.0X5A Adverse effect of glucocorticoids and synthetic analogues, initial encounter; Y92.89 Other specified places as the place of occurrence of the external cause
CPT/HCPCS: 36415; 71045-TC; 80048-TC; 80061-TC; 80076-TC; 83735-TC; 83880; 83935-TC; 84100-TC; 84300-TC; 84443-TC; 84484-TC; 85025-TC; 87081-TC; 94799-TC; A4216; C9803; G0378; J1956; J2920; J3475; J7030; J7050; Q0163; Q2036

== ENCOUNTER 2020-04-05 05:47 | Emergency (ER) | payer MEDICAID ==
[~2020-04-05] VITALS: Ht 180.3 cm; Wt 88.5 kg
[~2020-04-05 05:47] MED LIST changes: -AZIT250T PO; -METH4TAB3 PO
[2020-04-05 05:49] VITALS: BP 148/100
--- NOTE | 2020-04-05 06:17 | NUR ---
DR GILLIAM AT BEDSIDE FOR EVAL
[2020-04-05] MEDS ORDERED: predniSONE 20 MG TABLET PO ONE (06:30)
[2020-04-05] MEDS ORDERED: IPRATROPIUM NEB FS 0.5 MG/2.5 ML AMPUL.NEB NEB ONE (06:30)
[2020-04-05] MEDS ORDERED: ALBUTEROL FS 2.5 MG/3 ML VIAL.NEB NEB ONE (06:30)
--- NOTE | 2020-04-05 06:32 | NUR ---
RT AT BEDSIDE
[2020-04-05] MEDS ORDERED: predniSONE 20 MG TABLET ONE (06:34)
[2020-04-05] MEDS ORDERED: IPRATROPIUM NEB FS 0.5 MG/2.5 ML AMPUL.NEB ONE (06:41)
[2020-04-05] MEDS ORDERED: ALBUTEROL FS 2.5 MG/3 ML VIAL.NEB ONE (06:41)
== END 2020-04-05 07:45 | disposition home or self-care (01) ==
LOC: ER 05:50
DX: J44.9 Chronic obstructive pulmonary disease, unspecified (principal); Z79.899 Other long term (current) drug therapy
CPT/HCPCS: 94644; 99285; J7512

== ENCOUNTER 2020-04-24 01:08 | Emergency (ER) | payer MEDICAID ==
[~2020-04-24] VITALS: Ht 180.3 cm; Wt 90.7 kg
--- NOTE | 2020-04-24 01:08 | NUR ---
TO ER BED 18 AMBULATORY C/O SOB WITH WHEEZING SINCE LAST NIGHT. WHEEZING HEARD BILATERALLY ON AUSCULTATION. PT AAOX4. PLACE PT ON CARDIAC MONITORING, CONTINUOUS POX. O2@2L/NC. PENDING ER MD [place].
[2020-04-24] MEDS ORDERED: IPRATROPIUM NEB FS 0.5 MG/2.5 ML AMPUL.NEB NEB ONE (01:30)
[2020-04-24] MEDS ORDERED: ALBUTEROL FS 2.5 MG/3 ML VIAL.NEB NEB ONE (01:30)
[2020-04-24] MEDS ORDERED: predniSONE 20 MG TABLET PO ONE (01:30)
[2020-04-24] MEDS ORDERED: predniSONE 20 MG TABLET ONE (01:37)
[2020-04-24] MEDS ORDERED: ALBUTEROL FS 2.5 MG/3 ML VIAL.NEB ONE (01:40)
[2020-04-24] MEDS ORDERED: IPRATROPIUM NEB FS 0.5 MG/2.5 ML AMPUL.NEB ONE (01:40)
--- NOTE | 2020-04-24 01:40 | NUR ---
PT MEDICATED ORDERED.
--- NOTE | 2020-04-24 02:20 | NUR ---
Patient discharged to home in stable condition. Written and verbal after care instructions given. Patient verbalizes understanding of instruction. ambulatory with a steady gait noted. pt aaox4 no acute distress noted, resp even and unlabored. pt remains pain free at this time.
[2020-04-24 02:21] VITALS: BP 129/76
== END 2020-04-24 02:22 | disposition home or self-care (01) ==
LOC: ER 01:11
DX: J44.1 Chronic obstructive pulmonary disease with (acute) exacerbation (principal); Z87.891 Personal history of nicotine dependence; Z79.899 Other long term (current) drug therapy
CPT/HCPCS: 94640; 99283; J7512

== ENCOUNTER 2020-05-18 04:44 | Emergency (ER) | payer MEDICAID ==
[~2020-05-18] VITALS: Ht 180.3 cm; Wt 90.7 kg
[2020-05-18 04:53] VITALS: BP 134/94
--- NOTE | 2020-05-18 05:00 | NUR ---
DR. GILLIAM AT BEDSIDE FOR EVAL.
[2020-05-18] MEDS: IPRATROPIUM NEB FS 0.5 MG/2.5 ML AMPUL.NEB NEB ONE (05:07)
[2020-05-18] MEDS: ALBUTEROL FS 2.5 MG/3 ML VIAL.NEB NEB ONE ×2 (05:07→05:41)
[2020-05-18] MEDS ORDERED: predniSONE 20 MG TABLET ONE (05:10)
[2020-05-18] MEDS ORDERED: ALBUTEROL FS 2.5 MG/0.5 ML VIAL.NEB ONE (05:14)
[2020-05-18] MEDS ORDERED: IPRATROPIUM NEB FS 0.5 MG/2.5 ML AMPUL.NEB ONE (05:14)
[2020-05-18] MEDS: predniSONE 20 MG TABLET PO ONE (05:14)
--- NOTE | 2020-05-18 05:15 | NUR ---
RT WITH PT FOR BREATHING TX
[2020-05-18] MEDS ORDERED: ALBUTEROL FS 2.5 MG/3 ML VIAL.NEB ONE ×2 (05:31→05:33)
== END 2020-05-18 06:25 | disposition home or self-care (01) ==
LOC: ER 04:44
DX: J98.01 Acute bronchospasm (principal); J44.9 Chronic obstructive pulmonary disease, unspecified; Z87.891 Personal history of nicotine dependence; Z79.899 Other long term (current) drug therapy; Z60.2 Problems related to living alone
CPT/HCPCS: 94640 ×2; 99285; J7512

== ENCOUNTER 2020-06-25 06:53 | Emergency (ER) | payer MEDICAID ==
[~2020-06-25] VITALS: Ht 180.3 cm; Wt 90.7 kg
--- NOTE | 2020-06-25 06:55 | NUR ---
PT AAOX4. AMBULATORY WITH STEADY GAIT. BIBS C/O SOB X 1 DAY. PER PT HE RAN OUT OF HIS INHALER. PLACED IN BED 7 ON MONITOR AND PULSE OX. AT BEDSIDE FOR EVAL. AWAITING ORDERS.
--- NOTE | 2020-06-25 07:14 | NUR ---
RT CALLED FOR BREATHING TREATMENT.
--- NOTE | 2020-06-25 07:21 | NUR ---
RT AT BEDSIDE FOR BREATHING TX.
[2020-06-25] MEDS ORDERED: ALBUTEROL FS 2.5 MG/3 ML VIAL.NEB ONE (07:26)
[2020-06-25] MEDS ORDERED: IPRATROPIUM NEB FS 0.5 MG/2.5 ML AMPUL.NEB ONE (07:26)
[2020-06-25] MEDS ORDERED: ALBUTEROL FS 2.5 MG/3 ML VIAL.NEB NEB ONE (07:30)
[2020-06-25] MEDS ORDERED: IPRATROPIUM NEB FS 0.5 MG/2.5 ML AMPUL.NEB NEB ONE (07:30)
[2020-06-25] MEDS ORDERED: ALBU18HF2 INH (07:51)
[2020-06-25] MEDS ORDERED: METH4TAB3 PO (08:00)
[2020-06-25 08:01] VITALS: BP 123/78
--- NOTE | 2020-06-25 08:01 | NUR ---
Patient discharged to home in stable condition. Written and verbal after care instructions given. Patient verbalizes understanding of instruction.
== END 2020-06-25 08:01 | disposition home or self-care (01) ==
LOC: ER 06:55
DX: J45.909 Unspecified asthma, uncomplicated (principal); Z98.890 Other specified postprocedural states; Z79.899 Other long term (current) drug therapy

== ENCOUNTER 2020-07-25 00:32 | Emergency (ER) | payer MEDICAID ==
[~2020-07-25] VITALS: Ht 180.3 cm; Wt 93.0 kg
[~2020-07-25 00:32] MED LIST changes: +METH4TAB3 PO
--- NOTE | 2020-07-25 00:35 | NUR ---
PT BIBSELF C/O SOB, HX COPD. PT AAOX4. AMBULATORY WITH STEADY GAIT. O2 SAT 88% ROOM AIR, PLACED ON 6L SIMPLE MASK AND TOLERATING WELL, O2 SAT NOW 97%. NO ACUTE DISTRESS NOTED AT THIS TIME.
[2020-07-25] MEDS ORDERED: Magnesium 1GM/D5W 100ML PREMIX 200 ML IV ONE ×2 (00:45→01:00)
[2020-07-25] MEDS ORDERED: methylPREDNISolone SOD SUCC 125 MG/2ML VIAL ONE (00:45)
[2020-07-25] MEDS ORDERED: IPRATROPIUM NEB FS 0.5 MG/2.5 ML AMPUL.NEB ONE (00:51)
[2020-07-25] MEDS ORDERED: ALBUTEROL FS 2.5 MG/3 ML VIAL.NEB ONE ×2 (00:51→01:25)
--- NOTE | 2020-07-25 00:55 | NUR ---
RT AT BEDSIDE FOR BREATHING TREATMENT
--- NOTE | 2020-07-25 00:59 | NUR ---
RADIOLOGY AT BEDSIDE FOR CXR
[2020-07-25] MEDS ORDERED: IPRATROPIUM NEB FS 0.5 MG/2.5 ML AMPUL.NEB NEB ONE (01:00)
[2020-07-25] MEDS ORDERED: methylPREDNISolone SOD SUCC 125 MG/2ML VIAL IV ONE (01:00)
[2020-07-25] MEDS ORDERED: ALBUTEROL FS 2.5 MG/3 ML VIAL.NEB NEB ONE ×2 (01:00→01:30)
[2020-07-25 01:06] LABS: BASOPHILS # (AUTO) 0.1 /CMM (0.0-0.2); BASOPHILS % (AUTO) 1.5 % (0.0-2.0); EOSINOPHILS % (AUTO) 7.7 % (0.0-6.0); HEMATOCRIT 48 % (39-51); HEMOGLOBIN 16.3 g/dL (13.5-17.5); LYMPHOCYTES # (AUTO) 1.3 /CMM (0.8-4.8); LYMPHOCYTES % (AUTO) 15.9 % (20.0-44.0); MEAN CORPUSCULAR HGB CONC 34 g/dl (31.0-36.0); MEAN CORPUSCULAR VOLUME 86 fL (80-96); MONOCYTES # (AUTO) 0.5 /CMM (0.1-1.30); MONOCYTES % (AUTO) 6.4 % (2.0-12.0); NEUTROPHILS # (AUTO) 5.5 /CMM (1.8-8.9); NEUTROPHILS % (AUTO) 68.5 % (43.0-81.0); PLATELET COUNT (AUTO) 340 /CMM (150-450)
[2020-07-25] MEDS ORDERED: METH4TAB3 PO (01:14)
[2020-07-25] MEDS ORDERED: ALBU8.5H8 INH (01:14)
[2020-07-25 01:24] LABS: CALCIUM, SERUM 9.3 mg/dL (8.5-10.1); CARBON DIOXIDE 30 mmol/L (21-32); CHLORIDE 103 mmol/L (98-107); CREATININE 1.3 mg/dL (0.6-1.3); GLUCOSE 146 mg/dL (74-106); POTASSIUM 3.6 mmol/L (3.5-5.1); SODIUM SERUM 142 mmol/L (136-145); UREA NITROGEN, BLOOD 13 mg/dL (7-18)
[2020-07-25 01:36] LABS: B-TYPE NATRIURETIC PEPTIDE 51 PG/ML (0-125)
[2020-07-25 02:08] VITALS: BP 127/67
== END 2020-07-25 02:09 | disposition home or self-care (01) ==
LOC: ER 00:33
DX: J44.1 Chronic obstructive pulmonary disease with (acute) exacerbation (principal); Z98.890 Other specified postprocedural states; Z79.899 Other long term (current) drug therapy; Z87.891 Personal history of nicotine dependence
CPT/HCPCS: 36415; 71045; 80048; 83880; 84484; 85025; 87040 ×2; 93005; 94640 ×2; 96365; 96366; 96375; 99285; J2930; J3475

== ENCOUNTER 2020-08-20 05:02 | Emergency (ER) | payer MEDICAID ==
[~2020-08-20] VITALS: Ht 180.3 cm; Wt 90.7 kg
[~2020-08-20 05:02] MED LIST changes: +ALBU8.5H8 INH
--- NOTE | 2020-08-20 05:12 | NUR ---
pt bibself c/o sob. Pt aaox4 breathing evenly and unlabored. Pt states " my copd is exacerbated. Lis been short of breath for 3 days and i think my hypertension came back." Pt skin warm, dry, and intact. Some swelling noted in bilateral lower extremities. pt attached to monitor and pox. pt given blanket and calllight within reach
[2020-08-20] MEDS ORDERED: DEXAMETHASONE SOD PHOSPHATE 10 MG/ML VIAL ONE (05:16)
--- NOTE | 2020-08-20 05:26 | NUR ---
rt at bedside
[2020-08-20] MEDS ORDERED: ALBUTEROL FS 2.5 MG/0.5 ML VIAL.NEB ONE (05:27)
[2020-08-20] MEDS ORDERED: IPRATROPIUM NEB FS 0.5 MG/2.5 ML AMPUL.NEB ONE (05:27)
[2020-08-20] MEDS ORDERED: IPRATROPIUM NEB FS 0.5 MG/2.5 ML AMPUL.NEB NEB ONE (05:30)
[2020-08-20] MEDS ORDERED: DEXAMETHASONE SOD PHOSPHATE 4 MG/ML VIAL IM ONE (05:30)
[2020-08-20] MEDS ORDERED: ALBUTEROL FS 2.5 MG/0.5 ML VIAL.NEB NEB ONE (05:30)
[2020-08-20] MEDS ORDERED: PRED50TA PO (05:50)
--- NOTE | 2020-08-20 05:55 | NUR ---
Patient discharged to home in stable condition. Written and verbal after care instructions given. Patient verbalizes understanding of instruction. Pt ambulatory with a steady gait
[2020-08-20] MEDS ORDERED: ALBU8.5H8 INH (05:57)
[2020-08-20 06:00] VITALS: BP 133/91
== END 2020-08-20 05:55 | disposition home or self-care (01) ==
LOC: ER 05:06
DX: J98.01 Acute bronchospasm (principal); Z98.890 Other specified postprocedural states; Z87.891 Personal history of nicotine dependence; Z79.899 Other long term (current) drug therapy
CPT/HCPCS: 94640; 96372; 99283; J1100

== ENCOUNTER 2020-09-28 05:33 | Inpatient (IN) | payer MEDICAID ==
[~2020-09-28] VITALS: Ht 180.3 cm; Wt 90.7 kg
[~2020-09-28 05:33] MED LIST changes: +PRED50TA PO
--- NOTE | 2020-09-28 05:38 | NUR ---
Pt bibself c/o copd exacerbation. pt aaox4 breathing evenly, but deeply and quickly. Pt placed on 2L o2 NC 96%. Pt attached to oven stripper and pox. Pt skin is warm, dry, and intact. pt states that he ran out of his inhaler. Md at bedside for eval. Pt given blanket and call light. Will continue to monitor.
--- NOTE | 2020-09-28 05:41 | NUR ---
called rt for breathing tx
--- NOTE | 2020-09-28 05:49 | NUR ---
rt at bedside
[2020-09-28] MEDS ORDERED: ALBUTEROL FS 2.5 MG/3 ML VIAL.NEB ONE (05:50)
[2020-09-28] MEDS ORDERED: IPRATROPIUM NEB FS 0.5 MG/2.5 ML AMPUL.NEB ONE (05:50)
[2020-09-28] MEDS ORDERED: IPRATROPIUM NEB FS 0.5 MG/2.5 ML AMPUL.NEB NEB ONE (06:00)
[2020-09-28] MEDS ORDERED: ALBUTEROL FS 2.5 MG/3 ML VIAL.NEB NEB ONE (06:00)
--- NOTE | 2020-09-28 06:05 | NUR ---
RAD AT BED SIDE
--- NOTE | 2020-09-28 06:20 | NUR ---
rt ac 18g initiated. blood obtained and sent to lab
--- NOTE | 2020-09-28 06:21 | NUR ---
called lab for covid swab
--- NOTE | 2020-09-28 06:29 | NUR ---
covid swab sent to lab
[2020-09-28] MEDS ORDERED: Magnesium 1GM/D5W 100ML PREMIX 100 ML IV ONE ×2 (06:44→07:19)
[2020-09-28] MEDS ORDERED: methylPREDNISolone SOD SUCC 125 MG/2ML VIAL ONE (06:44)
[2020-09-28] MEDS: Magnesium 1GM/D5W 100ML PREMIX 100 ML IV SCH ×2 (06:50→07:50)
[2020-09-28 06:58] LABS: BASOPHILS # (AUTO) 0.1 /CMM (0.0-0.2); BASOPHILS % (AUTO) 1.3 % (0.0-2.0); EOSINOPHILS % (AUTO) 10.8 % (0.0-6.0); HEMATOCRIT 48 % (39-51); HEMOGLOBIN 16.1 g/dL (13.5-17.5); LYMPHOCYTES # (AUTO) 1.7 /CMM (0.8-4.8); LYMPHOCYTES % (AUTO) 21.1 % (20.0-44.0); MEAN CORPUSCULAR HGB CONC 34 g/dl (31.0-36.0); MEAN CORPUSCULAR VOLUME 86 fL (80-96); MONOCYTES # (AUTO) 0.6 /CMM (0.1-1.30); NEUTROPHILS # (AUTO) 4.8 /CMM (1.8-8.9); NEUTROPHILS % (AUTO) 59.8 % (43.0-81.0); PLATELET COUNT (AUTO) 356 /CMM (150-450); RED BLOOD CELL COUNT(AUTO) 5.55 MIL/uL (4.5-6.0)
[2020-09-28] MEDS ORDERED: methylPREDNISolone SOD SUCC 125 MG/2ML VIAL IV ONE (07:00)
--- NOTE | 2020-09-28 07:05 | NUR ---
gave report to YENIFER Sawyer for vickie
--- NOTE | 2020-09-28 07:28 | NUR ---
PAGED [facility].
[2020-09-28 07:36] LABS: CALCIUM, SERUM 9.4 mg/dL (8.5-10.1); CARBON DIOXIDE 26 mmol/L (21-32); CHLORIDE 103 mmol/L (98-107); CREATININE 1.2 mg/dL (0.6-1.3); GLUCOSE 113 mg/dL (74-106); POTASSIUM 3.9 mmol/L (3.5-5.1); SODIUM SERUM 140 mmol/L (136-145); UREA NITROGEN, BLOOD 11 mg/dL (7-18)
--- NOTE | 2020-09-28 08:50 | NUR ---
patient resting, no distress noted.
--- NOTE | 2020-09-28 08:50 | NUR ---
NURSING SUP GAVE 307-1 NURSE IS SHI.
--- NOTE | 2020-09-28 09:23 | NUR ---
report given to Gaby Kaur for vickie.
--- NOTE | 2020-09-28 09:39 | NUR ---
PATIENT TRANSFERRED TO ROOM 307-1 VIA ACLS PROTOCOL. NO DISTRESS NOTED. ON ROOM AIR WITH SPO2 OF 97%. ENDORSED TO SHI STREET.
--- NOTE | 2020-09-28 09:55 | NUR ---
ms rn received a new admission, 49 year old male, came in w/ dx of copd,awake,alert,oriented x4,not in any form of distress, respirations even and unlabored,no sob noted, deneis pain at this time, nsr on monitor, will monitor patient.
[2020-09-28] MEDS ORDERED: MAGNESIUM HYDROXIDE 30 ML UDC PO PRN (10:00)
[2020-09-28] MEDS ORDERED: MAG HYDROX/AL HYDROX/SIMETH 30 ML UDC PO PRN (10:00)
[2020-09-28] MEDS ORDERED: ONDANSETRON HCL/PF 4 MG/2 ML VIAL IVP PRN (10:00)
[2020-09-28] MEDS ORDERED: Z GUARD REMEDY 2 OZ OINT TP PRN (10:00)
[2020-09-28] MEDS ORDERED: ACETAMINOPHEN 325 MG TABLET PO PRN (10:00)
--- NOTE | 2020-09-28 11:00 | NUR ---
ms rn was seen by zachery gregorio w/ orders made and carried out.
[2020-09-28] MEDS: ALBUTEROL FS 2.5 MG/0.5 ML VIAL.NEB NEB SCH ×4 (11:41→23:04)
[2020-09-28] MEDS: IPRATROPIUM NEB FS 0.5 MG/2.5 ML AMPUL.NEB NEB SCH ×4 (11:41→23:04)
[2020-09-28] MEDS: ENOXAPARIN SODIUM 40 MG/0.4 ML DISP.SYRIN SQ SCH (12:35)
[2020-09-28] MEDS ORDERED: AZITHROMYCIN 250 MG TABLET PO ONE ×2 (13:00)
--- NOTE | 2020-09-28 14:45 | NUR ---
ms rn on bed,sleeping, no distress noted.refused to wear hospital gown.
[2020-09-28 16:00] VITALS: BP 147/98
[2020-09-28] MEDS ORDERED: AZITHROMYCIN 250 MG TABLET PO SCH (16:00)
[2020-09-28] MEDS: methylPREDNISolone SOD SUCC 40 MG/ML VIAL IV SCH (16:46)
--- NOTE | 2020-09-28 17:23 | NUR ---
ms rn on bed, no distress noted.
--- NOTE | 2020-09-28 20:32 | NUR ---
PROPOSAL WRITER NOTES PATIENT IN BED. A/OX4. NO S/S OF DISTRESS. NO C/O OF PAIN. PATIENT ABLE TO MAKE NEEDS KNOWN. TELE MONITOR READING SINUS RHYTHM. L. HAND #[address], SALINE LOCK. I HAVE TAKEN OUT THE R. AC IV FOR IT WAS BLEEDING. ASSESSED AND CLEANED. SAFETY IN PLACE: BED IN LOWEST, LOCKED POSITION. CALL LIGHT WITHIN REACH. WILL CONTINUE TO MONITOR.
[2020-09-28 21:25] VITALS: BP 142/112
[2020-09-28 22:00] VITALS: BP 142/112
[2020-09-29] VITALS: BP 134/83
[2020-09-29] MEDS: ALBUTEROL FS 2.5 MG/0.5 ML VIAL.NEB NEB SCH ×6 (02:47→23:18)
[2020-09-29] MEDS: IPRATROPIUM NEB FS 0.5 MG/2.5 ML AMPUL.NEB NEB SCH ×6 (02:47→23:18)
[2020-09-29 04:00] VITALS: BP 147/106
--- NOTE | 2020-09-29 06:07 | NUR ---
SENIOR ACCOUNTING ASSOCIATE CLOSING PATIENT IN BED WITH EYES CLOSED. NO S/S OF DISTRESS. NO C/O PAIN. TELE MONITOR READING SR IN THE 80'S. IV IN SALINE LOCK.PATIENT ABLE TO MAKE NEEDS KNOWN. NEEDS ATTENDED. SAFETY KEPT IN PLACE THE WHOLE SHIFT: BED IN LOWEST, LOCKED POSITION; CALL LIGHT WITHIN REACH. NO SIGNIFICANT CHANGE SINCE LAST SHIFT. WILL ENDORSE CARE TO MORNING SHIFT NURSE.
[2020-09-29 06:23] LABS: BASOPHILS % (AUTO) 0.1 % (0.0-2.0); HEMATOCRIT 49 % (39-51); HEMOGLOBIN 16.5 g/dL (13.5-17.5); LYMPHOCYTES # (AUTO) 0.8 /CMM (0.8-4.8); LYMPHOCYTES % (AUTO) 4.3 % (20.0-44.0); MEAN CORPUSCULAR HGB CONC 34 g/dl (31.0-36.0); MEAN CORPUSCULAR VOLUME 86 fL (80-96); MONOCYTES # (AUTO) 0.6 /CMM (0.1-1.30); MONOCYTES % (AUTO) 3.1 % (2.0-12.0); NEUTROPHILS # (AUTO) 16.9 /CMM (1.8-8.9); NEUTROPHILS % (AUTO) 92.5 % (43.0-81.0); PLATELET COUNT (AUTO) 401 /CMM (150-450); RED BLOOD CELL COUNT(AUTO) 5.77 MIL/uL (4.5-6.0); WHITE BLOOD COUNT (AUTO) 18.3 K/uL (4.3-11.0)
[2020-09-29 06:26] LABS: CALCIUM, SERUM 9.5 mg/dL (8.5-10.1); CREATININE 1.1 mg/dL (0.6-1.3); MAGNESIUM 2.4 mg/dL (1.8-2.4); PHOSPHORUS 4.3 mg/dL (2.5-4.9); POTASSIUM 4.3 mmol/L (3.5-5.1)
[2020-09-29 06:30] LABS: THYROID STIMULATING HORMONE 0.513 uIU/mL (0.358-3.74)
[2020-09-29 08:00] VITALS: BP 148/91
--- NOTE | 2020-09-29 08:00 | NUR ---
RN NOTE PATIENT AWAKE IN BED RESTING. CURRENTLY A/O X3 AND VINCENTIAN SPEAKING. NO COMPLAINT OF PAIN OR NAUSEA. CURRENTLY ON RA WITH NO SOB OR RESPIRATORY DISTRESS PRESENT. CURRENTLY ON BPM ANALYST. PT IS SELF AMBULATORY WITH BATHROOM PRIVILEGES. SKIN IS INTACT. NO EDEMA PRESENT. HL PRESENT ON L HAND 22G SL. SAFETY MEASURES IN PLACE. SIDE RAILS RAISED. BED LOWERED. CALL LIGHT WITHIN REACH. WILL CONTINUE TO MONITOR.
[2020-09-29] MEDS ORDERED: methylPREDNISolone SOD SUCC 40 MG/ML VIAL IV SCH (09:00)
[2020-09-29] MEDS: PANTOPRAZOLE 40 MG TABLET.DR PO SCH (09:43)
[2020-09-29] MEDS: methylPREDNISolone SOD SUCC 40 MG/ML VIAL IV SCH ×2 (09:44→17:10)
[2020-09-29] MEDS: ENOXAPARIN SODIUM 40 MG/0.4 ML DISP.SYRIN SQ SCH (10:03)
[2020-09-29] MEDS: AZITHROMYCIN 250 MG TABLET PO SCH (13:41)
[2020-09-29 16:00] VITALS: BP 142/67
[2020-09-29] MEDS: METFORMIN 500 MG TABLET PO SCH (17:10)
--- NOTE | 2020-09-29 18:36 | NUR ---
RN CLOSING NOTE PATIENT AWAKE IN BED RESTING. CURRENTLY A/O X3 AND HEBREW SPEAKING. NO COMPLAINT OF PAIN OR NAUSEA. CURRENTLY ON RA WITH NO SOB OR RESPIRATORY DISTRESS PRESENT. CURRENTLY ON VEHICLE LEASING AND RENTAL MANAGER. PT IS SELF AMBULATORY WITH BATHROOM PRIVILEGES. SKIN IS INTACT. NO EDEMA PRESENT. HL PRESENT ON L HAND 22G SL. ROUTINE MEDS GIVEN. SAFETY MEASURES IN PLACE. SIDE RAILS RAISED. BED LOWERED. CALL LIGHT WITHIN REACH. REPORT TO BE GIVEN TO NIGHT NURSE FOR JESSICA.
--- NOTE | 2020-09-29 18:40 | NUR ---
RN NOTE PT REMOVED R HAND IV LINE ACCIDENTALLY. CATHETER INTACT. NO SIGNS OF PROLONGED BLEEDING. NEW IV INSERTED IN L HAND 22G. WILL CONTINUE TO MONITOR.
--- NOTE | 2020-09-29 19:51 | NUR ---
TELE OPENING NOTES PATIENT IN BED. A/OX4. NO S/S OF DISTRESS. NO C/O PAIN. PATIENT ABLE TO MAKE NEEDS KNOWN. TELE BOX READING SR IN THE 90'S. SAFETY IN PLACE: BED IN LOWEST, LOCKED POSITION. CALL LIGHT WITHIN REACH. WILL CONTINUE TO MONITOR.
[2020-09-29 20:00] VITALS: BP 134/93
--- NOTE | 2020-09-29 22:43 | NUR ---
BLENDER NOTES I HEAR WHEEZING WHEN PATIENT BREATHES. OFFERED OXYGEN BUT PATIENT DECLINED. PER PATIENT HE IS OKAY AND HE IS TRYING TO BREATHE ON HIS OWN MUCH POSSIBLE. O2 SATURATION WITHIN NORMAL LIMITS 98%.
[2020-09-30] VITALS: BP 140/96
[2020-09-30] MEDS: ALBUTEROL FS 2.5 MG/0.5 ML VIAL.NEB NEB SCH ×5 (03:10→19:31)
[2020-09-30] MEDS: IPRATROPIUM NEB FS 0.5 MG/2.5 ML AMPUL.NEB NEB SCH ×5 (03:10→19:33)
[2020-09-30 04:00] VITALS: BP 153/87
--- NOTE | 2020-09-30 06:29 | NUR ---
DATASTAGE CONSULTANT CLOSING NOTES PATIENT IN BED. A/OX4. MILD WHEEZING CAN BE HEARD BUT TOLERATING ROOM AIR. PATIENT DECLINING OXYGEN. SATURATION 100% THIS AM. PATIENT ABLE TO MAKE NEEDS KNOWN. ALL NEEDS ATTENDED. TELE MONITOR READING SR 80'S-90's. SAFETY KEPT IN PLACE THE WHOLE SHIFT: BED IN LOWEST, LOCKED POSITION. CALL LIGHT WITHIN REACH. NO SIGNIFICANT CHANGE SINCE LAST SHIFT. WILL ENDORSE CARE TO MORNING SHIFT NURSE.
[2020-09-30 07:28] LABS: BASOPHILS % (AUTO) 0.2 % (0.0-2.0); HEMATOCRIT 50 % (39-51); HEMOGLOBIN 16.8 g/dL (13.5-17.5); LYMPHOCYTES # (AUTO) 1.3 /CMM (0.8-4.8); LYMPHOCYTES % (AUTO) 6.3 % (20.0-44.0); MEAN CORPUSCULAR HGB CONC 34 g/dl (31.0-36.0); MEAN CORPUSCULAR VOLUME 86 fL (80-96); MONOCYTES # (AUTO) 1.2 /CMM (0.1-1.30); MONOCYTES % (AUTO) 5.6 % (2.0-12.0); NEUTROPHILS # (AUTO) 18.9 /CMM (1.8-8.9); NEUTROPHILS % (AUTO) 87.9 % (43.0-81.0); PLATELET COUNT (AUTO) 442 /CMM (150-450); RED BLOOD CELL COUNT(AUTO) 5.85 MIL/uL (4.5-6.0); WHITE BLOOD COUNT (AUTO) 21.5 K/uL (4.3-11.0)
[2020-09-30 07:36] LABS: CALCIUM, SERUM 9.4 mg/dL (8.5-10.1); CREATININE 1.2 mg/dL (0.6-1.3); MAGNESIUM 2.6 mg/dL (1.8-2.4); PHOSPHORUS 4.7 mg/dL (2.5-4.9); POTASSIUM 4.3 mmol/L (3.5-5.1)
[2020-09-30] MEDS: PANTOPRAZOLE 40 MG TABLET.DR PO SCH (07:53)
[2020-09-30 08:00] VITALS: BP 129/94
[2020-09-30] MEDS: METFORMIN 500 MG TABLET PO SCH ×2 (08:43→18:49)
[2020-09-30] MEDS: methylPREDNISolone SOD SUCC 40 MG/ML VIAL IV SCH ×2 (08:43→18:48)
[2020-09-30] MEDS: ENOXAPARIN SODIUM 40 MG/0.4 ML DISP.SYRIN SQ SCH (09:24)
[2020-09-30 12:00] VITALS: BP 131/83
[2020-09-30] MEDS: AZITHROMYCIN 250 MG TABLET PO SCH (12:20)
[2020-09-30 16:00] VITALS: BP 139/83
[2020-09-30 20:00] VITALS: BP 123/83
--- NOTE | 2020-09-30 20:00 | NUR ---
MS/TELE/RN RECEIVED PATIENT LYING IN BED, S/P BREATHING TREATMENT, PATIENT IS AWAKE, ALERT, ORIENTED, COMFORTABLE, NO C/O PAIN, NO DISTRESS NOTED, CALL LIGHT IN REACH, WILL MONITOR.
--- NOTE | 2020-09-30 21:14 | NUR ---
MS/TELE/RN PATIENT REQUESTS FOR A SLEEPING MEDICATION. OBTAINED ORDER FROM TAMMY CUMMINGS NP, OF RESTORIL 7.5 MG PO Q HS PRN. CARRIED OUT.
[2020-09-30] MEDS: TEMAZEPAM 7.5 MG CAPSULE PO PRN (21:49)
[2020-10-01] VITALS: BP_SYST 112; BP_SYST 146; BP_DIAS 64; BP_DIAS 80
[2020-10-01] MEDS: IPRATROPIUM NEB FS 0.5 MG/2.5 ML AMPUL.NEB NEB SCH ×7 (00:07→23:29)
[2020-10-01] MEDS: ALBUTEROL FS 2.5 MG/0.5 ML VIAL.NEB NEB SCH ×7 (00:07→23:29)
[2020-10-01 04:00] VITALS: BP 142/99
--- NOTE | 2020-10-01 06:14 | NUR ---
MS/TELE/RN PATIENT IS AWAKE AT THIS TIME, COUGHING, BREATHING TREATMENT IS BEING DONE BY RT, NO SIGNS OF DISTRESS NOTED, GOOD SLEEP NOTED DURING THE SHIFT, ALL NEEDS ATTENDED AT THIS TIME, WILL CONTINUE TP MONITOR.
[2020-10-01 06:58] LABS: BASOPHILS % (AUTO) 0.2 % (0.0-2.0); HEMATOCRIT 51 % (39-51); HEMOGLOBIN 16.9 g/dL (13.5-17.5); LYMPHOCYTES # (AUTO) 1.2 /CMM (0.8-4.8); LYMPHOCYTES % (AUTO) 8.4 % (20.0-44.0); MEAN CORPUSCULAR HGB CONC 33 g/dl (31.0-36.0); MEAN CORPUSCULAR VOLUME 86 fL (80-96); MONOCYTES # (AUTO) 0.8 /CMM (0.1-1.30); MONOCYTES % (AUTO) 5.8 % (2.0-12.0); NEUTROPHILS # (AUTO) 11.8 /CMM (1.8-8.9); NEUTROPHILS % (AUTO) 85.6 % (43.0-81.0); PLATELET COUNT (AUTO) 420 /CMM (150-450); RED BLOOD CELL COUNT(AUTO) 5.99 MIL/uL (4.5-6.0); WHITE BLOOD COUNT (AUTO) 13.8 K/uL (4.3-11.0)
[2020-10-01 07:25] LABS: CALCIUM, SERUM 9.4 mg/dL (8.5-10.1); CREATININE 1.1 mg/dL (0.6-1.3); MAGNESIUM 2.4 mg/dL (1.8-2.4); PHOSPHORUS 4.8 mg/dL (2.5-4.9); POTASSIUM 4.2 mmol/L (3.5-5.1)
--- NOTE | 2020-10-01 07:26 | NUR ---
TELE/RN OPENING NOTES RECEIVED PATIENT ON BED, AWAKE ALERT AND ORIENTED X4. PATIENT IS ON ROOM AIR. PATIENT IN NO APPARENT RESPIRATORY DISTRESS NOTED. NO COMPLAINED OF PAIN NOTED AT THIS TIME. WILL CONTINUE TO MONITOR.
[2020-10-01] MEDS: PANTOPRAZOLE 40 MG TABLET.DR PO SCH (07:30)
[2020-10-01 08:00] VITALS: BP 141/84
[2020-10-01] MEDS: methylPREDNISolone SOD SUCC 40 MG/ML VIAL IV SCH ×2 (08:58→10:30)
[2020-10-01] MEDS: METFORMIN 500 MG TABLET PO SCH ×2 (09:00→16:43)
[2020-10-01] MEDS: ENOXAPARIN SODIUM 40 MG/0.4 ML DISP.SYRIN SQ SCH (09:12)
--- NOTE | 2020-10-01 10:59 | NUR ---
TELE/RN NOTES SOLU MEDROL 40MG IV WAS GIVEN AT 0855.
[2020-10-01] MEDS: AZITHROMYCIN 250 MG TABLET PO SCH (12:31)
[2020-10-01 16:00] VITALS: BP 138/93
--- NOTE | 2020-10-01 18:39 | NUR ---
TELE/RN CLOSING NOTES PATIENT IS ON BED, AWAKE ALERT AND ORIENTED X4. PATIENT IS ON ROOM AIR SATURATION 97%. PATIENT IN NO APPARENT RESPIRATORY DISTRESS NOTED. NO COMPLAINED OF PAIN NOTED AT THIS TIME. TELE MONITOR SINUS RHYTHM 90 BPM. IV ACCESS AT LEFT HAND #22G PATENT AND INTACT. SEEN AND EXAMINED BY MD WITH ORDERS MADE AND CARRIED OUT. ALL DUE MEDICATIONS WAS GIVEN. ALL NEEDS WAS ATTENDED. WILL CONTINUE TO MONITOR.
--- NOTE | 2020-10-01 19:15 | NUR ---
TELE-RN OPENING NOTE RECEIVED PATIENT RESTING IN BED. AWAKE, ALERT AND ORIENTED X 4. ABLE TO MAKE NEEDS KNOWN. NO COMPLAINTS OF PAIN AT THIS TIME. IV ACCESS TO LEFT HAND INTACT, PATENT AND SALINE LOCKED. TELE MONITOR READING SR 88. CONTINUES ON ROOM AIR WITH NO S/SX OF RESPIRATORY DISTRESS NOTED. CALL LIGHT WITHIN REACH. ASPIRATION, FALL AND SAFETY PRECAUTIONS MAINTAINED. WILL CONTINUE TO MONITOR.
[2020-10-01 20:55] VITALS: BP 129/83
[2020-10-01] MEDS: TEMAZEPAM 7.5 MG CAPSULE PO PRN (22:36)
[2020-10-02 00:27] VITALS: BP 119/68
[2020-10-02] MEDS: IPRATROPIUM NEB FS 0.5 MG/2.5 ML AMPUL.NEB NEB SCH ×3 (03:50→12:50)
[2020-10-02] MEDS: ALBUTEROL FS 2.5 MG/0.5 ML VIAL.NEB NEB SCH ×3 (03:50→12:50)
[2020-10-02 04:32] VITALS: BP 144/97
[2020-10-02 06:09] LABS: BASOPHILS % (AUTO) 0.2 % (0.0-2.0); HEMATOCRIT 51 % (39-51); LYMPHOCYTES # (AUTO) 2.6 /CMM (0.8-4.8); LYMPHOCYTES % (AUTO) 20.2 % (20.0-44.0); MEAN CORPUSCULAR HGB CONC 34 g/dl (31.0-36.0); MEAN CORPUSCULAR VOLUME 86 fL (80-96); MONOCYTES # (AUTO) 1.2 /CMM (0.1-1.30); MONOCYTES % (AUTO) 9.4 % (2.0-12.0); NEUTROPHILS # (AUTO) 9.1 /CMM (1.8-8.9); NEUTROPHILS % (AUTO) 69.2 % (43.0-81.0); PLATELET COUNT (AUTO) 387 /CMM (150-450); RED BLOOD CELL COUNT(AUTO) 5.91 MIL/uL (4.5-6.0); WHITE BLOOD COUNT (AUTO) 13.1 K/uL (4.3-11.0)
--- NOTE | 2020-10-02 06:10 | NUR ---
TELE-RN CLOSING NOTE PATIENT CURRENTLY SLEEPING IN BED. ALERT AND ORIENTED X 4. ABLE TO MAKE NEEDS KNOWN. NO COMPLAINTS OF PAIN AT THIS TIME. IV ACCESS TO LEFT HAND INTACT, PATENT AND SALINE LOCKED. TELE MONITOR READING SR WITH BBB HR 63. CONTINUES ON ROOM AIR WITH NO S/SX OF RESPIRATORY DISTRESS NOTED. CALL LIGHT WITHIN REACH. ASPIRATION, FALL AND SAFETY PRECAUTIONS MAINTAINED. WILL ENDORSE PLAN OF CARE TO ONCOMING SHIFT.
[2020-10-02 07:19] LABS: MAGNESIUM 2.4 mg/dL (1.8-2.4); PHOSPHORUS 4.4 mg/dL (2.5-4.9); POTASSIUM 5.1 mmol/L (3.5-5.1)
--- NOTE | 2020-10-02 07:50 | NUR ---
LABORER CONSTRUCTION OR LEAK GANG OPENING NOTE PATIENT IS IN NO ACUTE DISTRESS, PATIENT IS IN BE RESTING. PATIENT IS ON ROOM AIR TOLERATING WELL, NO SOB NOTED. PATIENT IS ON TELE MONITOR READING SR. SAFETY PRECAUTIONS ARE ON. BED IS LOCKED IN THE LOWEST POSITION, WITH SIDE RAILS UP, CALL LIGHT WITHIN THE REACH, WILL CONTINUE TO MONITOR CLOSELY.
[2020-10-02 08:00] VITALS: BP 136/94
[2020-10-02] MEDS: METFORMIN 500 MG TABLET PO SCH (10:11)
[2020-10-02] MEDS: PANTOPRAZOLE 40 MG TABLET.DR PO SCH (10:11)
[2020-10-02] MEDS: methylPREDNISolone SOD SUCC 40 MG/ML VIAL IV SCH (10:11)
[2020-10-02] MEDS: ENOXAPARIN SODIUM 40 MG/0.4 ML DISP.SYRIN SQ SCH (10:11)
[2020-10-02] MEDS ORDERED: ALBU18HF2 INH (11:14)
[2020-10-02] MEDS ORDERED: METF-440 PO (11:14)
[2020-10-02] MEDS ORDERED: AZIT250T PO (11:14)
[2020-10-02] MEDS ORDERED: FLUT1BLS IH (11:14)
[2020-10-02] MEDS ORDERED: METH4TAB3 PO (11:14)
[2020-10-02] MEDS: AZITHROMYCIN 250 MG TABLET PO SCH (13:47)
--- NOTE | 2020-10-02 14:30 | NUR ---
SPIRITUAL ADVISOR NOTED PT DISCHARGE HOME AT THIS TIME. PT MEDICALLY STABLE AND CLEARED FOR DISCHARGE BY ASMITA CERVANTES. ALL DISCHARGE INSTRUCTIONS PROVIDED. PT VERBALIZED UNDERSTANDING. PT KEPT CLEAN AND DRY. ALL BELONGINGS ACCOUNTED FOR, SIGNED BY PT AND WITH PT. IV ACCESS REMOVED, PRESSURE APPLIED, SECURED WITH GAUZE AND TAPE, NO SIGN OF BLEEDING OR INFILTRATION NOTED. ID BAND REMOVED. PT LEFT UNIT IN STABLE CONDITION, TRANSPORTED BY WHEEL CHAIR TO [facility] BY NURSE. [place], CHARGE NURSE AND ASMITA CERVANTES AWARE
== END 2020-10-02 14:30 | disposition home or self-care (01) | DRG 140 ==
LOC: ER 05:34 → TELE 09:02
PROVIDERS: ADMIT Registered Nurse; ATTEND Registered Nurse
DX: J44.1 Chronic obstructive pulmonary disease with (acute) exacerbation (principal); D72.829 Elevated white blood cell count, unspecified; F17.200 Nicotine dependence, unspecified, uncomplicated; E11.9 Type 2 diabetes mellitus without complications; R06.03 Acute respiratory distress; T38.0X5A Adverse effect of glucocorticoids and synthetic analogues, initial encounter; Y92.89 Other specified places as the place of occurrence of the external cause; Z79.84 Long term (current) use of oral hypoglycemic drugs; Z20.822 Contact with and (suspected) exposure to COVID-19
CPT/HCPCS: 36415; 70220-TC; 71045-TC; 80048-TC; 80061-TC; 83735-TC; 83880; 84100-TC; 84443-TC; 84484-TC; 85025-TC; 87081-TC; 94799-TC; C9803; G0378; J1650; J2920; J2930; J3475

== ENCOUNTER 2020-11-05 21:53 | Emergency (ER) | payer MEDICAID ==
[~2020-11-05] VITALS: Ht 180.3 cm; Wt 90.7 kg
[~2020-11-05 21:53] MED LIST changes: +AZIT250T PO; +FLUT1BLS IH; +METF-440 PO; -PRED50TA PO
--- NOTE | 2020-11-05 21:59 | NUR ---
PATIENT KATHLEEN FROM HOME FOR SOB X 2DAYS, HX OF COPD, BEEN USING ALBUTEROL. NO RELIEF. PATIENT A/OX4. ON ROOM AIR SATTING AT 94%. C/O R EYE IRRITATION. CONNECTED TO CARIAC AND POX MONITOR. DOCTOR AT BEDSIDE. SAFETY MEASURES INITIATED.
[2020-11-05] MEDS ORDERED: methylPREDNISolone SOD SUCC 125 MG/2ML VIAL ONE (22:15)
[2020-11-05] MEDS ORDERED: IPRATROPIUM NEB FS 0.5 MG/2.5 ML AMPUL.NEB NEB ONE (22:30)
[2020-11-05] MEDS ORDERED: TETRAcaine 5 ML BOTTLE RIGHTEYE ONE (22:30)
[2020-11-05] MEDS ORDERED: ALBUTEROL FS 2.5 MG/3 ML VIAL.NEB NEB ONE (22:30)
[2020-11-05] MEDS ORDERED: methylPREDNISolone SOD SUCC 125 MG/2ML VIAL IV ONE (22:30)
[2020-11-05 22:31] LABS: BASOPHILS % (AUTO) 0.5 % (0.0-2.0); EOSINOPHILS % (AUTO) 5.9 % (0.0-6.0); HEMATOCRIT 45 % (39-51); HEMOGLOBIN 14.9 g/dL (13.5-17.5); LYMPHOCYTES # (AUTO) 1.5 K/uL (0.8-4.8); LYMPHOCYTES % (AUTO) 19.3 % (20.0-44.0); MEAN CORPUSCULAR HGB CONC 33 g/dl (31.0-36.0); MEAN CORPUSCULAR VOLUME 87 fL (80-96); MONOCYTES # (AUTO) 0.4 K/uL (0.1-1.30); MONOCYTES % (AUTO) 5.2 % (2.0-12.0); NEUTROPHILS # (AUTO) 5.4 K/uL (1.8-8.9); NEUTROPHILS % (AUTO) 69.1 % (43.0-81.0); PLATELET COUNT (AUTO) 357 K/uL (150-450); RED BLOOD CELL COUNT(AUTO) 5.18 MIL/uL (4.5-6.0); WHITE BLOOD COUNT (AUTO) 7.9 K/uL (4.3-11.0)
--- NOTE | 2020-11-05 22:41 | NUR ---
xray at bedside
[2020-11-05 22:48] LABS: ALBUMIN 3.2 g/dL (3.4-5.0); BILIRUBIN,DIRECT 0.1 mg/dL (0.0-0.2); BILIRUBIN,TOTAL 0.5 mg/dL (0.2-1.0); CALCIUM, SERUM 8.7 mg/dL (8.5-10.1); POTASSIUM 3.4 mmol/L (3.5-5.1); TOTAL PROTEIN, SERUM 6.9 g/dL (6.4-8.2)
[2020-11-05] MEDS ORDERED: PRED20TA PO (23:26)
[2020-11-05] MEDS ORDERED: GENT5DRO4 RIGHTEYE (23:26)
[2020-11-05] MEDS ORDERED: ALBU18HF2 INH (23:26)
[2020-11-05] MEDS ORDERED: ALBUTEROL FS 2.5 MG/3 ML VIAL.NEB ONE (23:35)
[2020-11-05] MEDS ORDERED: IPRATROPIUM NEB FS 0.5 MG/2.5 ML AMPUL.NEB ONE (23:36)
--- NOTE | 2020-11-06 | NUR ---
Patient discharged to home in stable condition. Written and verbal after care instructions given. Gave patient dc order prescriptions. Patient verbalizes understanding of instruction. Pt ambulatory with a steady gait.
[2020-11-06 00:14] VITALS: BP 142/87
== END 2020-11-06 | disposition home or self-care (01) ==
LOC: ER 21:55
DX: S05.01XA Injury of conjunctiva and corneal abrasion without foreign body, right eye, initial encounter (principal); J44.1 Chronic obstructive pulmonary disease with (acute) exacerbation; Z98.890 Other specified postprocedural states; Z91.018 Allergy to other foods; Z87.891 Personal history of nicotine dependence; Z79.899 Other long term (current) drug therapy; X58.XXXA Exposure to other specified factors, initial encounter; Y93.89 Activity, other specified; Y92.89 Other specified places as the place of occurrence of the external cause; Y99.8 Other external cause status
CPT/HCPCS: 36415; 71045; 80048; 80076; 83880; 85025; 93005; 94640; 96374; 99285; J2930

== ENCOUNTER 2020-11-25 13:01 | Inpatient (IN) | payer MEDICAID ==
[~2020-11-25] VITALS: Ht 180.3 cm; Wt 109.8 kg
[~2020-11-25 13:01] MED LIST changes: +GENT5DRO4 RIGHTEYE; +PRED20TA PO
[2020-11-25] MEDS ORDERED: ALBUTEROL FS 2.5 MG/3 ML VIAL.NEB ONE (13:26)
[2020-11-25] MEDS ORDERED: IPRATROPIUM NEB FS 0.5 MG/2.5 ML AMPUL.NEB ONE (13:26)
[2020-11-25] MEDS ORDERED: methylPREDNISolone SOD SUCC 125 MG/2ML VIAL ONE (13:28)
[2020-11-25] MEDS ORDERED: methylPREDNISolone SOD SUCC 125 MG/2ML VIAL IV ONE (13:30)
[2020-11-25] MEDS ORDERED: IPRATROPIUM NEB FS 0.5 MG/2.5 ML AMPUL.NEB NEB ONE (13:30)
[2020-11-25] MEDS ORDERED: ALBUTEROL FS 2.5 MG/3 ML VIAL.NEB NEB ONE (13:30)
[2020-11-25 13:41] LABS: BASOPHILS # (AUTO) 0.1 K/uL (0.0-0.2); BASOPHILS % (AUTO) 1.2 % (0.0-2.0); EOSINOPHILS % (AUTO) 13.1 % (0.0-6.0); HEMATOCRIT 44 % (39-51); HEMOGLOBIN 14.7 g/dL (13.5-17.5); LYMPHOCYTES # (AUTO) 1.1 K/uL (0.8-4.8); LYMPHOCYTES % (AUTO) 17.6 % (20.0-44.0); MEAN CORPUSCULAR HGB CONC 33 g/dl (31.0-36.0); MEAN CORPUSCULAR VOLUME 87 fL (80-96); MONOCYTES # (AUTO) 0.4 K/uL (0.1-1.30); NEUTROPHILS # (AUTO) 4.1 K/uL (1.8-8.9); NEUTROPHILS % (AUTO) 62.1 % (43.0-81.0); PLATELET COUNT (AUTO) 307 K/uL (150-450); RED BLOOD CELL COUNT(AUTO) 5.09 MIL/uL (4.5-6.0); WHITE BLOOD COUNT (AUTO) 6.5 K/uL (4.3-11.0)
--- NOTE | 2020-11-25 13:43 | NUR ---
BIBS FROM HOME TO ER BED 6. AAOX4. SOB, COUGHING BUT NOT IN DISTRESS, O2 SAT 96% ON RA. CAME IN FOR COPD EXACERBATION. PT NOTED WHEEZING. MD WAS AT THE BEDSIDE FOR EVAL. ORDERS RECEIVED, NOTED AND CARRIED OUT. IV LINE ESTABLISHED ON LFA 18G, BLOOD DRAWN AND SENT TO LAB. COVID SWAB DONE. RT WAS AT THE BEDSIDE, ON BREATHING TX. WILL CONTINUE TO MONITOR
[2020-11-25 13:48] LABS: CALCIUM, SERUM 8.6 mg/dL (8.5-10.1); CARBON DIOXIDE 26 mmol/L (21-32); CHLORIDE 103 mmol/L (98-107); CREATININE 1.1 mg/dL (0.6-1.3); GLUCOSE 177 mg/dL (74-106); POTASSIUM 3.1 mmol/L (3.5-5.1); SODIUM SERUM 140 mmol/L (136-145); UREA NITROGEN, BLOOD 7 mg/dL (7-18)
[2020-11-25 14:04] LABS: ALANINE AMINOTRANSFERASE 33 U/L (12-78); ALBUMIN 3.1 g/dL (3.4-5.0); ALKALINE PHOSPHATASE 80 U/L (46-116); ASPARTATE AMINOTRANSFERASE 20 U/L (15-37); BILIRUBIN,DIRECT 0.2 mg/dL (0.0-0.2); BILIRUBIN,TOTAL 1.1 mg/dL (0.2-1.0); TOTAL PROTEIN, SERUM 6.5 g/dL (6.4-8.2)
--- NOTE | 2020-11-25 15:19 | NUR ---
MOVE SHEET SUBMITTED.
--- NOTE | 2020-11-25 16:11 | NUR ---
CALLED NURSING SUP FOR ROOM ASSIGNMENT. ROOMS WILL BE AVAILABLE AFTER 7PM.
--- NOTE | 2020-11-25 16:45 | NUR ---
SPOKE WITH VIVIANE, CAGE TENDER FOR CLINICALS. PT IS AUTHORIZED TO STAY. VERBAL AUTH UNDER VIVIANE.
[2020-11-25] MEDS ORDERED: POTASSIUM CHLORIDE 20 MEQ TAB.PRT.SR PO ONE ×2 (17:30→21:27)
[2020-11-25] MEDS ORDERED: ACETAMINOPHEN 325 MG TABLET PO PRN (17:30)
[2020-11-25] MEDS ORDERED: HYDROCODONE/APAP 5/325MG TABLET PO PRN (17:30)
[2020-11-25] MEDS ORDERED: ONDANSETRON HCL/PF 4 MG/2 ML VIAL IVP PRN (17:30)
[2020-11-25] MEDS ORDERED: ZOLPIDEM TARTRATE 5 MG TABLET PO PRN (17:30)
[2020-11-25] MEDS ORDERED: MAG HYDROX/AL HYDROX/SIMETH 30 ML UDC PO PRN (17:30)
[2020-11-25] MEDS ORDERED: MAGNESIUM HYDROXIDE 30 ML UDC PO PRN (17:30)
[2020-11-25] MEDS ORDERED: Z GUARD REMEDY 2 OZ OINT TP PRN (17:30)
--- NOTE | 2020-11-25 19:42 | NUR ---
RN report given to YENIFER Perales/SHRUTI for vickie
[2020-11-25 20:15] VITALS: BP 135/85
--- NOTE | 2020-11-25 20:22 | NUR ---
pt transporrted to unit ongurney with emt at bedside on stable condition. nad noted during transport.
[2020-11-25 20:44] VITALS: BP 135/85
[2020-11-25] MEDS: ENOXAPARIN SODIUM 40 MG/0.4 ML DISP.SYRIN SQ SCH (21:31)
[2020-11-26] MEDS: ALBUTEROL FS 2.5 MG/0.5 ML VIAL.NEB NEB PRN ×2 (01:27→20:47)
--- NOTE | 2020-11-26 05:06 | NUR ---
MR FORD ARRIVED ON THE FLOOR 11/25 2009 FROM THE ER FROM HOME CC: SOB DX.COPD. HE IS ALERT AND ORIENTATED X4 SPEECH CLEAR SATS 93% ROOM AIR. WITH TALKING HE IS SOB COUGHING NONPRODUCTIVE. USES THE URINAL AT THE BEDSIDE. BED ALARM ON CHANGING HIS OWN POSITION IN THE BED
[2020-11-26 06:14] LABS: BASOPHILS % (AUTO) 0.3 % (0.0-2.0); HEMATOCRIT 47 % (39-51); HEMOGLOBIN 15.5 g/dL (13.5-17.5); LYMPHOCYTES # (AUTO) 0.6 K/uL (0.8-4.8); LYMPHOCYTES % (AUTO) 4.2 % (20.0-44.0); MEAN CORPUSCULAR HGB CONC 33 g/dl (31.0-36.0); MEAN CORPUSCULAR VOLUME 88 fL (80-96); MONOCYTES # (AUTO) 0.3 K/uL (0.1-1.30); MONOCYTES % (AUTO) 2.4 % (2.0-12.0); NEUTROPHILS # (AUTO) 13.5 K/uL (1.8-8.9); NEUTROPHILS % (AUTO) 93.1 % (43.0-81.0); PLATELET COUNT (AUTO) 338 K/uL (150-450); RED BLOOD CELL COUNT(AUTO) 5.34 MIL/uL (4.5-6.0); WHITE BLOOD COUNT (AUTO) 14.5 K/uL (4.3-11.0)
[2020-11-26 07:07] LABS: CALCIUM, SERUM 9.2 mg/dL (8.5-10.1); MAGNESIUM 2.2 mg/dL (1.8-2.4); PHOSPHORUS 3.2 mg/dL (2.5-4.9); POTASSIUM 4.6 mmol/L (3.5-5.1)
[2020-11-26 08:56] VITALS: BP 135/88
[2020-11-26] MEDS: PANTOPRAZOLE 40 MG TABLET.DR PO SCH (10:02)
[2020-11-26] MEDS: methylPREDNISolone SOD SUCC 40 MG/ML VIAL IV SCH ×3 (10:02→17:13)
[2020-11-26 10:38] LABS: THYROID STIMULATING HORMONE 1.018 uIU/mL (0.358-3.74)
[2020-11-26] MEDS: AZITHROMYCIN 250 MG TABLET PO ONE ×2 (11:00→13:55)
[2020-11-26] MEDS ORDERED: AZITHROMYCIN 250 MG TABLET PO ONE (14:00)
[2020-11-26 16:04] VITALS: BP 142/88
[2020-11-26] MEDS: ENOXAPARIN SODIUM 40 MG/0.4 ML DISP.SYRIN SQ SCH (18:31)
[2020-11-26 20:00] VITALS: BP 127/90
--- NOTE | 2020-11-26 20:00 | NUR ---
Patient awake, A&Ox4. States he feels like he needs a breathing treatment RR 22, wheezing, RT called O2 sat 97% on RA.
[2020-11-27] MEDS: ALBUTEROL FS 2.5 MG/0.5 ML VIAL.NEB NEB PRN (04:06)
--- NOTE | 2020-11-27 05:37 | NUR ---
Patient slept well throughout night though easy to wake. A&Ox4. C/o SOB and wheezing x2 relieved by breathing treatments. O2 sats stable throughout. No other issues. Patient able to make needs known.
[2020-11-27 06:45] LABS: BASOPHILS # (AUTO) 0.1 K/uL (0.0-0.2); BASOPHILS % (AUTO) 0.5 % (0.0-2.0); HEMATOCRIT 49 % (39-51); HEMOGLOBIN 16.1 g/dL (13.5-17.5); LYMPHOCYTES % (AUTO) 5.3 % (20.0-44.0); MEAN CORPUSCULAR HGB CONC 33 g/dl (31.0-36.0); MEAN CORPUSCULAR VOLUME 88 fL (80-96); MONOCYTES # (AUTO) 0.8 K/uL (0.1-1.30); MONOCYTES % (AUTO) 4.5 % (2.0-12.0); NEUTROPHILS # (AUTO) 16.4 K/uL (1.8-8.9); NEUTROPHILS % (AUTO) 89.7 % (43.0-81.0); PLATELET COUNT (AUTO) 367 K/uL (150-450); RED BLOOD CELL COUNT(AUTO) 5.58 MIL/uL (4.5-6.0); WHITE BLOOD COUNT (AUTO) 18.3 K/uL (4.3-11.0)
--- NOTE | 2020-11-27 06:58 | NUR ---
called radiology to alert them no MD has read STAT chest CT yet. Stated they will follow up ABIMAEL.
[2020-11-27] MEDS ORDERED: BUDE10.2 IH (07:52)
[2020-11-27 07:55] LABS: CALCIUM, SERUM 9.3 mg/dL (8.5-10.1); POTASSIUM 4.3 mmol/L (3.5-5.1)
[2020-11-27] MEDS ORDERED: PRED20TA PO (07:56)
--- NOTE | 2020-11-27 08:00 | NUR ---
m/s compressor mechanic: md visit seen and examined by dr. fair with order to discharge home today with prescriptions. orders acknowledged.
[2020-11-27 08:21] VITALS: BP 155/84
[2020-11-27] MEDS: PANTOPRAZOLE 40 MG TABLET.DR PO SCH (08:31)
[2020-11-27] MEDS: methylPREDNISolone SOD SUCC 40 MG/ML VIAL IV SCH ×2 (08:33→13:01)
[2020-11-27] MEDS ORDERED: AZITHROMYCIN 250 MG TABLET PO SCH (09:00)
--- NOTE | 2020-11-27 10:00 | NUR ---
m/s account executive key accounts: notes pt says he drove himself here. pt to go home after lunch.
--- NOTE | 2020-11-27 12:00 | NUR ---
m/s offset printer: notes having lunch at this time, pt to go home after lunch.
--- NOTE | 2020-11-27 13:30 | NUR ---
m/s research center director: notes discharge instructions with e scripts given/provided and pt verbalized understanding. h/l removed with tip intact with no bleeding, swelling, and no redness.
--- NOTE | 2020-11-27 13:40 | NUR ---
m/s executive admin: discharge discharge home via own private vehicle in stable condition with all d'c papers and valuables.
== END 2020-11-27 15:00 | disposition home or self-care (01) | DRG 140 ==
LOC: ER 13:04 → TELE 19:41 → MED 20:22
PROVIDERS: ADMIT Nurse Practitioner Acute Care; ATTEND Family Medicine
DX: J44.1 Chronic obstructive pulmonary disease with (acute) exacerbation (principal); E44.1 Mild protein-calorie malnutrition; Z79.51 Long term (current) use of inhaled steroids; E87.6 Hypokalemia; E66.9 Obesity, unspecified; Z20.822 Contact with and (suspected) exposure to COVID-19; Z87.891 Personal history of nicotine dependence; Z68.33 Body mass index [BMI] 33.0-33.9, adult; E88.09 Other disorders of plasma-protein metabolism, not elsewhere classified; R73.9 Hyperglycemia, unspecified; Z79.84 Long term (current) use of oral hypoglycemic drugs; R91.1 Solitary pulmonary nodule; R06.03 Acute respiratory distress; T38.0X5A Adverse effect of glucocorticoids and synthetic analogues, initial encounter; D72.829 Elevated white blood cell count, unspecified; Z79.899 Other long term (current) drug therapy; Y92.89 Other specified places as the place of occurrence of the external cause
CPT/HCPCS: 36415; 71045-TC; 71250-TC; 80048-TC; 80061-TC; 80076-TC; 83735-TC; 83880; 84100-TC; 84443-TC; 84484-TC; 85025-TC; 87081-TC; C9803; G0378; J1650; J2920; J2930

== ENCOUNTER 2021-01-29 22:55 | Emergency (ER) | payer MEDICAID ==
[~2021-01-29] VITALS: Ht 180.3 cm; Wt 90.7 kg
[~2021-01-29 22:55] MED LIST changes: -ALBU18HF2 INH; -ALBU8.5H8 INH; -AZIT250T PO; +BUDE10.2 IH; -FLUT1BLS IH; -GENT5DRO4 RIGHTEYE; -METF-440 PO; -METH4TAB3 PO
--- NOTE | 2021-01-29 23:28 | NUR ---
ADVERTISEMENT DISTRIBUTOR AT BEDSIDE
[2021-01-29] MEDS ORDERED: IPRATROPIUM NEB FS 0.5 MG/2.5 ML AMPUL.NEB ONE (23:46)
[2021-01-29] MEDS ORDERED: ALBUTEROL FS 2.5 MG/3 ML VIAL.NEB ONE (23:46)
[2021-01-29] MEDS ORDERED: methylPREDNISolone SOD SUCC 125 MG/2ML VIAL ONE (23:52)
[2021-01-30] MEDS ORDERED: methylPREDNISolone SOD SUCC 125 MG/2ML VIAL IV ONE
[2021-01-30 00:25] LABS: BASOPHILS # (AUTO) 0.1 K/uL (0.0-0.2); BASOPHILS % (AUTO) 1.3 % (0.0-2.0); EOSINOPHILS % (AUTO) 4.9 % (0.0-6.0); HEMATOCRIT 47 % (39-51); LYMPHOCYTES # (AUTO) 1.6 K/uL (0.8-4.8); LYMPHOCYTES % (AUTO) 17.6 % (20.0-44.0); MEAN CORPUSCULAR HGB CONC 34 g/dl (31.0-36.0); MEAN CORPUSCULAR VOLUME 88 fL (80-96); MONOCYTES # (AUTO) 0.6 K/uL (0.1-1.30); MONOCYTES % (AUTO) 7.3 % (2.0-12.0); NEUTROPHILS # (AUTO) 6.1 K/uL (1.8-8.9); NEUTROPHILS % (AUTO) 68.9 % (43.0-81.0); PLATELET COUNT (AUTO) 348 K/uL (150-450); WHITE BLOOD COUNT (AUTO) 8.9 K/uL (4.3-11.0)
[2021-01-30 00:29] LABS: CALCIUM, SERUM 9.3 mg/dL (8.5-10.1); CARBON DIOXIDE 28 mmol/L (21-32); CHLORIDE 106 mmol/L (98-107); CREATININE 1.2 mg/dL (0.6-1.3); GLUCOSE 89 mg/dL (74-106); POTASSIUM 3.5 mmol/L (3.5-5.1); SODIUM SERUM 144 mmol/L (136-145); UREA NITROGEN, BLOOD 14 mg/dL (7-18)
[2021-01-30 00:42] LABS: ALANINE AMINOTRANSFERASE 33 U/L (12-78); ALBUMIN 3.9 g/dL (3.4-5.0); ALKALINE PHOSPHATASE 86 U/L (46-116); ASPARTATE AMINOTRANSFERASE 26 U/L (15-37); BILIRUBIN,DIRECT 0.1 mg/dL (0.0-0.2); BILIRUBIN,TOTAL 0.5 mg/dL (0.2-1.0); TOTAL PROTEIN, SERUM 7.8 g/dL (6.4-8.2)
[2021-01-30] MEDS ORDERED: ALBUTEROL FS 2.5 MG/3 ML VIAL.NEB ONE (01:10)
[2021-01-30] MEDS ORDERED: IPRATROPIUM NEB FS 0.5 MG/2.5 ML AMPUL.NEB ONE (01:10)
--- NOTE | 2021-01-30 01:16 | NUR ---
CLINICALS FAXED TO FIRMWARE DEVEL[facility].
[2021-01-30] MEDS ORDERED: ALBUTEROL SULFATE INH 18 GM HFA.AER.AD IH PRN (01:30)
[2021-01-30] MEDS ORDERED: hydrALAZINE HCL IV 20 MG VIAL IV PRN (01:30)
[2021-01-30] MEDS ORDERED: ONDANSETRON HCL/PF 4 MG/2 ML VIAL IVP PRN (01:30)
[2021-01-30] MEDS ORDERED: ALBUTEROL FS 2.5 MG/3 ML VIAL.NEB CONTNEB ONE ×2 (01:30)
[2021-01-30] MEDS ORDERED: IPRATROPIUM NEB FS 0.5 MG/2.5 ML AMPUL.NEB NEB ONE ×2 (01:30)
[2021-01-30] MEDS ORDERED: MORPHINE SULFATE INJ 2 MG/ML DISP.SYRIN IV PRN (01:30)
[2021-01-30] MEDS ORDERED: LABETALOL 20 MG/4 ML VIAL IV PRN (01:30)
[2021-01-30] MEDS ORDERED: ACETAMINOPHEN 325 MG TABLET PO PRN (01:30)
[2021-01-30] MEDS ORDERED: ENOXAPARIN SODIUM 40 MG/0.4 ML DISP.SYRIN SQ SCH (01:30)
--- NOTE | 2021-01-30 02:49 | NUR ---
ROOM 117-1
--- NOTE | 2021-01-30 03:45 | NUR ---
GAVE REPORT TO GIULIANO ABDI RN FOR JESSICA
[2021-01-30] MEDS ORDERED: PRED20TA PO (04:00)
[2021-01-30] MEDS ORDERED: ALBUTEROL FS 2.5 MG/3 ML VIAL.NEB NEB PRN (04:00)
[2021-01-30] MEDS ORDERED: ALBU8.5H8 INH (04:00)
--- NOTE | 2021-01-30 04:10 | NUR ---
Patient does not wish to proceed with medical care recommended by Dr. Yepez. Patient given information related to possible complications, up to and including , which could occur as a result of leaving the hospital at this time. Patient verbalizes understanding of risks involved due to leaving against medical advice. Patient has signed AMA form. DC IV. Pt ambulatory with a steady gait. Rx given as ordered. pt verbalized understanding
[2021-01-30 04:45] VITALS: BP 173/95
[2021-01-30] MEDS ORDERED: methylPREDNISolone SOD SUCC 40 MG/ML VIAL IV SCH (06:00)
[2021-01-30] MEDS ORDERED: BUDESONIDE RESPULE INH 0.5 MG/2 ML AMPUL.NEB IH SCH (07:05)
[2021-01-30] MEDS ORDERED: ALBUTEROL FS 2.5 MG/3 ML VIAL.NEB NEB SCH (07:35)
[2021-01-30] MEDS ORDERED: Medication Not On Formulary EA (Budesonide/Formoterol Fumarate (Symbicort 160-4.5 Mcg In IH SCH (09:00)
[2021-02-12] MEDS ORDERED: PRED50TA PO (08:50)
[2021-02-12] MEDS ORDERED: ALBU8.5H8 INH (08:50)
== END 2021-01-30 04:20 | disposition home or self-care (01) ==
LOC: ER 22:57 → UNDOADMIN 01-30 03:05 → TELE1 01-30 03:05
DX: R06.03 Acute respiratory distress (principal); J44.1 Chronic obstructive pulmonary disease with (acute) exacerbation; Z20.822 Contact with and (suspected) exposure to COVID-19; I45.2 Bifascicular block; Z91.011 Allergy to milk products; Z87.891 Personal history of nicotine dependence; Z53.29 Procedure and treatment not carried out because of patient's decision for other reasons
CPT/HCPCS: 36415; 71045; 80048; 80076; 83880; 84484; 85025; 87426; 93005 ×2; 94644; 94645; 96374; 99291; C9803; J2930

== ENCOUNTER 2021-02-10 08:13 | Inpatient (IN) | payer MEDICAID ==
[~2021-02-10] VITALS: Ht 180.3 cm; Wt 99.8 kg
[~2021-02-10 08:13] MED LIST changes: +ALBU8.5H8 INH
--- NOTE | 2021-02-10 08:30 | NUR ---
DR. WHITE AT FOR INGRIDAL.
[2021-02-10] MEDS ORDERED: methylPREDNISolone SOD SUCC 125 MG/2ML VIAL IV ONE (09:00)
[2021-02-10] MEDS ORDERED: ALBUTEROL FS 2.5 MG/3 ML VIAL.NEB NEB ONE ×2 (09:00→12:00)
[2021-02-10] MEDS ORDERED: IPRATROPIUM NEB FS 0.5 MG/2.5 ML AMPUL.NEB NEB ONE (09:00)
[2021-02-10] MEDS ORDERED: IPRATROPIUM NEB FS 0.5 MG/2.5 ML AMPUL.NEB ONE (09:01)
[2021-02-10] MEDS ORDERED: ALBUTEROL FS 2.5 MG/3 ML VIAL.NEB ONE ×3 (09:01→13:39)
--- NOTE | 2021-02-10 09:06 | NUR ---
C/O SOB X 1 WEEK. PT AAOX4, DENIES CP, DIZZINESS, N/V AT THIS TIME. PLACED ON PRESS OPERATOR, SR. RESP THERAPIST AT BS FOR BREATHING TX. PT GABBY WELL, NAD NOTED AT THIS TIME. WILL CONT TO MONITOR.
[2021-02-10 09:07] LABS: BASOPHILS # (AUTO) 0.2 K/uL (0.0-0.2); BASOPHILS % (AUTO) 2.2 % (0.0-2.0); EOSINOPHILS % (AUTO) 7.7 % (0.0-6.0); HEMATOCRIT 47 % (39-51); HEMOGLOBIN 15.4 g/dL (13.5-17.5); LYMPHOCYTES # (AUTO) 2.1 K/uL (0.8-4.8); LYMPHOCYTES % (AUTO) 21.9 % (20.0-44.0); MEAN CORPUSCULAR HGB CONC 33 g/dl (31.0-36.0); MEAN CORPUSCULAR VOLUME 88 fL (80-96); MONOCYTES # (AUTO) 0.5 K/uL (0.1-1.30); MONOCYTES % (AUTO) 5.8 % (2.0-12.0); NEUTROPHILS # (AUTO) 5.9 K/uL (1.8-8.9); NEUTROPHILS % (AUTO) 62.4 % (43.0-81.0); PLATELET COUNT (AUTO) 374 K/uL (150-450); RED BLOOD CELL COUNT(AUTO) 5.31 MIL/uL (4.5-6.0); WHITE BLOOD COUNT (AUTO) 9.4 K/uL (4.3-11.0)
[2021-02-10] MEDS ORDERED: methylPREDNISolone SOD SUCC 125 MG/2ML VIAL ONE (09:10)
--- NOTE | 2021-02-10 09:14 | NUR ---
MEDICATED PER ERMD ORDER, PT GABBY WELL.
[2021-02-10 09:18] LABS: CALCIUM, SERUM 8.5 mg/dL (8.5-10.1); CARBON DIOXIDE 28 mmol/L (21-32); CHLORIDE 105 mmol/L (98-107); CREATININE 1.1 mg/dL (0.6-1.3); GLUCOSE 141 mg/dL (74-106); POTASSIUM 3.3 mmol/L (3.5-5.1); SODIUM SERUM 143 mmol/L (136-145); UREA NITROGEN, BLOOD 18 mg/dL (7-18)
[2021-02-10 09:30] LABS: ALANINE AMINOTRANSFERASE 30 U/L (12-78); ALBUMIN 3.2 g/dL (3.4-5.0); ALKALINE PHOSPHATASE 78 U/L (46-116); ASPARTATE AMINOTRANSFERASE 13 U/L (15-37); BILIRUBIN,DIRECT 0.1 mg/dL (0.0-0.2); BILIRUBIN,TOTAL 0.5 mg/dL (0.2-1.0); TOTAL PROTEIN, SERUM 6.8 g/dL (6.4-8.2)
[2021-02-10] MEDS ORDERED: LEVOFLOXACIN 750 MG /D5W 150ML PIGGYBACK IV ONE (10:00)
--- NOTE | 2021-02-10 11:10 | NUR ---
PT ASLEEP, EASILY AWAKEN BY VERBAL STIMULI. RR EVEN & UNLABORED. DENIES CP, SOB, DIZZINESS, N/V AT THIS TIME. ON TELE, NSR. WILL CONT TO MONITOR.
[2021-02-10] MEDS ORDERED: IV NS 0.9% 1,000 ML BAG IV ONE (12:30)
[2021-02-10] MEDS ORDERED: LEVOFLOXACIN 500 MG /D5W 100ML 500 MG in PREMIX 1 EA IV SCH (12:30)
[2021-02-10] MEDS ORDERED: Z GUARD REMEDY 2 OZ OINT TP PRN (12:30)
[2021-02-10] MEDS ORDERED: ZOLPIDEM TARTRATE 5 MG TABLET PO PRN (12:30)
[2021-02-10] MEDS ORDERED: MAG HYDROX/AL HYDROX/SIMETH 30 ML UDC PO PRN (12:30)
[2021-02-10] MEDS ORDERED: ONDANSETRON HCL/PF 4 MG/2 ML VIAL IVP PRN (12:30)
[2021-02-10] MEDS ORDERED: POTASSIUM CHLORIDE 20 MEQ TAB.PRT.SR PO ONE ×2 (12:30→13:15)
[2021-02-10] MEDS ORDERED: MAGNESIUM HYDROXIDE 30 ML UDC PO PRN (12:30)
[2021-02-10] MEDS ORDERED: ACETAMINOPHEN 325 MG TABLET PO PRN (12:30)
--- NOTE | 2021-02-10 12:36 | NUR ---
called nursing sup for tele bed.
[2021-02-10] MEDS ORDERED: ENOXAPARIN SODIUM 40 MG/0.4 ML DISP.SYRIN SQ ONE (13:15)
[2021-02-10] MEDS: ENOXAPARIN SODIUM 40 MG/0.4 ML DISP.SYRIN SQ SCH (13:28)
--- NOTE | 2021-02-10 13:34 | NUR ---
PT RESTING, RR EVEN & UNLABORED. NAD NOTED AT THIS TIME. WILL CONT TO MONITOR.
[2021-02-10] MEDS: ALBUTEROL FS 2.5 MG/3 ML VIAL.NEB NEB SCH ×2 (13:40→20:35)
--- NOTE | 2021-02-10 15:28 | NUR ---
bed 325-2
--- NOTE | 2021-02-10 15:40 | NUR ---
REPORT GIVEN TO YENIFER CANCHOLA FOR JESSICA.
[2021-02-10 16:05] VITALS: BP 91/87
--- NOTE | 2021-02-10 16:40 | NUR ---
MANAGER OF PRODUCTIONSOCIAL WORK JOB TITLES NOTE RECEIVED PATIENT FROM ER @ 1600. STABLE, A/O X4. ON 2L OXYGEN VIA NASAL CANNULA - TOLERATING WELL. PATIENT STATES HE DOES NOT FEEL SHORT OF BREATH AT THE MOMENT. NO PAIN NOTED. SKIN INTACT. IV ACCESS TO RIGHT HAND #20 - INTACT AND PATENT. PATIENT IS AMBULATORY. REGULAR DIET. SAFETY MEASURES IN PLACE. CALL LIGHT WITHIN REACH. WILL CONTINUE TO MONITOR.
[2021-02-10] MEDS: BUDESONIDE RESPULE INH 0.5 MG/2 ML AMPUL.NEB IH SCH (16:51)
[2021-02-10] MEDS: methylPREDNISolone SOD SUCC 40 MG/ML VIAL IV SCH (17:05)
--- NOTE | 2021-02-10 18:26 | NUR ---
DRAFTER DIRECTIONAL SURVEY CLOSING NOTES PATIENT CURRENTLY LYING IN BED, DRIFTS IN AND OUT OF SLEEP. STABLE, A/O X4. STABLE ON ROOM AIR - TOLERATING WELL. PATIENT STATES HE DOES NOT FEEL SHORT OF BREATH AT THE MOMENT. NO PAIN NOTED. IV ACCESS TO RIGHT HAND #20 - INTACT AND PATENT. PATIENT IS AMBULATORY. SAFETY MEASURES IN PLACE. CALL LIGHT WITHIN REACH. WILL ENDORSE TO ULTRASONIC TESTER NURSE FOR JESSICA.
[2021-02-10 20:04] VITALS: BP 155/85
[2021-02-10 23:59] VITALS: BP 140/90
[2021-02-11] MEDS: methylPREDNISolone SOD SUCC 40 MG/ML VIAL IV SCH ×5 (00:11→23:40)
[2021-02-11] MEDS: ALBUTEROL FS 2.5 MG/3 ML VIAL.NEB NEB SCH ×4 (01:37→20:27)
[2021-02-11 04:16] VITALS: BP 146/98
[2021-02-11 06:40] LABS: BASOPHILS # (AUTO) 0.1 K/uL (0.0-0.2); BASOPHILS % (AUTO) 0.3 % (0.0-2.0); HEMATOCRIT 50 % (39-51); HEMOGLOBIN 16.2 g/dL (13.5-17.5); LYMPHOCYTES # (AUTO) 0.7 K/uL (0.8-4.8); LYMPHOCYTES % (AUTO) 3.7 % (20.0-44.0); MEAN CORPUSCULAR HGB CONC 33 g/dl (31.0-36.0); MEAN CORPUSCULAR VOLUME 88 fL (80-96); MONOCYTES # (AUTO) 0.3 K/uL (0.1-1.30); MONOCYTES % (AUTO) 1.4 % (2.0-12.0); NEUTROPHILS # (AUTO) 18.4 K/uL (1.8-8.9); NEUTROPHILS % (AUTO) 94.6 % (43.0-81.0); PLATELET COUNT (AUTO) 379 K/uL (150-450); RED BLOOD CELL COUNT(AUTO) 5.68 MIL/uL (4.5-6.0); WHITE BLOOD COUNT (AUTO) 19.5 K/uL (4.3-11.0)
[2021-02-11 07:24] LABS: CALCIUM, SERUM 8.5 mg/dL (8.5-10.1); CREATININE 0.8 mg/dL (0.6-1.3); MAGNESIUM 2.4 mg/dL (1.8-2.4); PHOSPHORUS 2.8 mg/dL (2.5-4.9)
--- NOTE | 2021-02-11 07:59 | NUR ---
RN OPENING NOTE PT IS RESTING IN BED ASLEEP. AROUSES TO LIGHT TOUGH. ON RA WITH NO SOB OR RESPIRATORY DISTRESS PRESENT. A/O X4 AND TURKS AND [place]ER SPEAKING. NO COMPLAINT OF PAIN OR NAUSEA. ON LUMITE INJECTOR. NO EDEMA PRESENT. SELF AMBULATORY WITH BATHROOM PRIVILEGES. SKIN IS INTACT. IV PRESENT ON R HAND 20G AND FLUSHES WELL .SALINE LOCKED. LABS AND ORDERS REVIEWED. SAFETY MEASURES IN PLACE. SIDE RAILS RAISED. BED LOWERED. CALL LIGHT WITHIN REACH. WILL CONTINUE TO MONITOR.
[2021-02-11] MEDS: LEVOFLOXACIN 750 MG /D5W 150ML 750 MG in PREMIX 1 EA IV SCH (09:26)
[2021-02-11] MEDS: BUDESONIDE RESPULE INH 0.5 MG/2 ML AMPUL.NEB IH SCH ×2 (10:04→20:27)
[2021-02-11 11:12] VITALS: BP 135/91
[2021-02-11] MEDS: ENOXAPARIN SODIUM 40 MG/0.4 ML DISP.SYRIN SQ SCH (12:34)
--- NOTE | 2021-02-11 18:56 | NUR ---
RN CLOSING NOTE PT IS RESTING IN BED ASLEEP. AROUSES TO LIGHT TOUGH. ON RA WITH NO SOB OR RESPIRATORY DISTRESS PRESENT. A/O X4 AND LITHU[place]IAN SPEAKING. NO COMPLAINT OF PAIN OR NAUSEA. ON DE ALCOHOLIZER. NO EDEMA PRESENT. SELF AMBULATORY WITH BATHROOM PRIVILEGES. SKIN IS INTACT. IV PRESENT ON R HAND 20G AND FLUSHES WELL .SALINE LOCKED. LABS AND ORDERS REVIEWED. SAFETY MEASURES IN PLACE. SIDE RAILS RAISED. BED LOWERED. CALL LIGHT WITHIN REACH. WILL GIVE REPORT TO NIGHT NURSE FOR JESSICA.
[2021-02-11 20:00] VITALS: BP 145/88
--- NOTE | 2021-02-11 20:12 | NUR ---
CLEANER AND TRIMMER OPENING NOTE PT A/OX4; ABLE TO MAKE NEEDS KNOWN. TOLERATING R/A WELL WITH NO SOB. EXTERNAL CARDIAC TELE MONITOR READS SR AT 70'S WITH BBB. DENIES PAIN OR DISCOMFORT AT THIS TIME. R HAND#20G S/L; PATENT AND INTACT. SAFETY MEASURES IN PLACE: BED IN LOWEST LOCKED POSITION, SIDE RAILS UP X2, CALL LIGHT WITHIN EASY REACH. PT IN STABLE CONDITION, WILL CONT. PLAN OF CARE.
--- NOTE | 2021-02-11 23:42 | NUR ---
AGRICULTURAL EDUCATION INSTRUCTOR NOTE - INSOMNIA PT C/O DIFFICULTY FALLING ASLEEP. ADMINISTERED AMBIEN PER PTS REQUEST AND AND ORDERED. WILL REASSESS FOR SLEEP IN 30 MINUTES.
[2021-02-12] VITALS: BP 145/90
[2021-02-12] MEDS: ALBUTEROL FS 2.5 MG/3 ML VIAL.NEB NEB SCH ×2 (01:14→08:22)
[2021-02-12 04:00] VITALS: BP 132/92
[2021-02-12] MEDS: methylPREDNISolone SOD SUCC 40 MG/ML VIAL IV SCH (05:39)
[2021-02-12 06:53] LABS: BASOPHILS % (AUTO) 0.1 % (0.0-2.0); HEMATOCRIT 51 % (39-51); HEMOGLOBIN 16.7 g/dL (13.5-17.5); LYMPHOCYTES # (AUTO) 0.7 K/uL (0.8-4.8); LYMPHOCYTES % (AUTO) 2.7 % (20.0-44.0); MEAN CORPUSCULAR HGB CONC 33 g/dl (31.0-36.0); MEAN CORPUSCULAR VOLUME 88 fL (80-96); MONOCYTES # (AUTO) 0.5 K/uL (0.1-1.30); MONOCYTES % (AUTO) 1.8 % (2.0-12.0); NEUTROPHILS # (AUTO) 25.5 K/uL (1.8-8.9); NEUTROPHILS % (AUTO) 95.4 % (43.0-81.0); PLATELET COUNT (AUTO) 403 K/uL (150-450); RED BLOOD CELL COUNT(AUTO) 5.77 MIL/uL (4.5-6.0); WHITE BLOOD COUNT (AUTO) 26.8 K/uL (4.3-11.0)
--- NOTE | 2021-02-12 07:11 | NUR ---
RECYCLING OPERATIONS MANAGER CLOSING NOTE PT A/OX4; ABLE TO MAKE NEEDS KNOWN. TOLERATING R/A WELL WITH NO SOB. EXTERNAL CARDIAC TELE MONITOR READS SR AT 70'S WITH BBB. DENIES PAIN OR DISCOMFORT AT THIS TIME. R HAND#20G S/L; PATENT AND INTACT. SAFETY MEASURES IN PLACE: BED IN LOWEST LOCKED POSITION, SIDE RAILS UP X2, CALL LIGHT WITHIN EASY REACH. PT IN STABLE CONDITION, ENDORSED PLAN OF CARE TO MORNING RN.
--- NOTE | 2021-02-12 07:12 | NUR ---
FILLER SIFTER MACHINE OPENING NOTE RECEIVED PATIENT RESTING IN BED PT A/OX4; ABLE TO MAKE NEEDS KNOWN. PATIENT IS BREATHING EVENLY AND NONLABORED TOLERATING R/A WELL WITH NO SOB. EXTERNAL CARDIAC TELE MONITOR READS SR AT 70'S WITH BBB. DENIES PAIN OR DISCOMFORT AT THIS TIME. R HAND#20G S/L; PATENT AND INTACT. SAFETY MEASURES IN PLACE: BED IN LOWEST LOCKED POSITION, SIDE RAILS UP X2, CALL LIGHT WITHIN EASY REACH. WILL CONTINUE TO MONITOR
[2021-02-12 07:47] LABS: CALCIUM, SERUM 8.9 mg/dL (8.5-10.1); CREATININE 0.9 mg/dL (0.6-1.3); POTASSIUM 4.2 mmol/L (3.5-5.1)
[2021-02-12] MEDS: BUDESONIDE RESPULE INH 0.5 MG/2 ML AMPUL.NEB IH SCH (08:23)
[2021-02-12 08:33] VITALS: BP 155/78
[2021-02-12] MEDS ORDERED: PRED50TA PO (08:50)
[2021-02-12] MEDS ORDERED: ALBU8.5H8 INH (08:50)
[2021-02-12] MEDS: LEVOFLOXACIN 750 MG /D5W 150ML 750 MG in PREMIX 1 EA IV SCH (09:00)
--- NOTE | 2021-02-12 10:43 | NUR ---
CHIEF ENGINEER'S HELPER NOTE RECEIVED ORDER FOR DISCHARGE. PATIENT IS A/O X4 ABLE TO MAKE NEEDS KNOWN, PATIENT IS BREATHING EVENLY AND NONLABORED ON ROOM AIR. PATIENT DOES NOT COMPLAIN OF ANY DISTRESS OR PAIN. PATIENT WAS GIVEN DISCHARGE INSTRUCTIONS BOTH VERBALLY AND IN WRITTEN FORM. PATIENT VERBALIZED UNDERSTANDING. IV ACCESS REMOVED CATHETER TIP INTACT, PRESSURE DRESSING APPLIED NO BLEEDING NOTED. BELONGINGS ACCOUNTED FOR AND FORM SIGNED. PATIENT LEFT IN STABLE CONDITION VIA PRIVATE CAR.
== END 2021-02-12 10:41 | disposition home or self-care (01) | DRG 140 ==
LOC: ER 08:18 → TRANSITION 12:47 → TELE 15:49
PROVIDERS: ADMIT Internal Medicine; ATTEND Internal Medicine
DX: J44.1 Chronic obstructive pulmonary disease with (acute) exacerbation (principal); J96.01 Acute respiratory failure with hypoxia; E87.6 Hypokalemia; E66.8 Other obesity; Z68.30 Body mass index [BMI] 30.0-30.9, adult; E87.2 Acidosis; Z87.891 Personal history of nicotine dependence; D72.828 Other elevated white blood cell count; Z20.822 Contact with and (suspected) exposure to COVID-19; T38.0X5A Adverse effect of glucocorticoids and synthetic analogues, initial encounter; Y92.009 Unspecified place in unspecified non-institutional (private) residence as the place of occurrence of the external cause
CPT/HCPCS: 36415; 71045-TC; 80048-TC; 80076-TC; 83605-TC; 83735-TC; 83880; 84100-TC; 84484-TC; 85025-TC; 87040-TC; 87081-TC; A4216; C9803; G0378; J1650; J1956; J2920; J2930; J7030

== ENCOUNTER 2021-03-12 22:45 | Emergency (ER) | payer MEDICAID ==
[~2021-03-12] VITALS: Ht 180.3 cm; Wt 90.7 kg
[~2021-03-12 22:45] MED LIST changes: -PRED20TA PO; +PRED50TA PO
--- NOTE | 2021-03-12 23:01 | NUR ---
BIBS C/O SOB X3DAYS ALSO NEEDS MEDREFILL +WHEEZING. PT A/OX4. TOLERATING R/A AT 94%. PUT ON O2 1LPM VIA N/C; TOLERATING AT 97%
--- NOTE | 2021-03-12 23:02 | NUR ---
CONNECTED PT TO MONITOR AND POX. TOLERATING O2 1LPM VIA N/C
--- NOTE | 2021-03-12 23:45 | NUR ---
RT AT PT'S BEDSIDE
[2021-03-12] MEDS ORDERED: IPRATROPIUM NEB FS 0.5 MG/2.5 ML AMPUL.NEB ONE (23:48)
[2021-03-12] MEDS ORDERED: ALBUTEROL FS 2.5 MG/3 ML VIAL.NEB ONE (23:48)
[2021-03-12] MEDS ORDERED: predniSONE 20 MG TABLET ONE (23:54)
[2021-03-13] MEDS ORDERED: ALBUTEROL FS 2.5 MG/3 ML VIAL.NEB NEB ONE
[2021-03-13] MEDS ORDERED: IPRATROPIUM NEB FS 0.5 MG/2.5 ML AMPUL.NEB NEB ONE
[2021-03-13] MEDS ORDERED: predniSONE 20 MG TABLET PO ONE
[2021-03-13] MEDS ORDERED: ALBU8.5H8 INH (01:26)
[2021-03-13] MEDS ORDERED: PRED20TA PO (01:26)
--- NOTE | 2021-03-13 01:33 | NUR ---
Patient discharged to home in stable condition. Written and verbal after care instructions given. Patient verbalizes understanding of instruction. Pt ambulatory with a steady gait
[2021-03-13 01:34] VITALS: BP 152/87
== END 2021-03-13 01:34 | disposition home or self-care (01) ==
LOC: ER 22:47
DX: J44.1 Chronic obstructive pulmonary disease with (acute) exacerbation (principal); Z98.890 Other specified postprocedural states; Z87.891 Personal history of nicotine dependence; Z91.048 Other nonmedicinal substance allergy status; Z79.899 Other long term (current) drug therapy
CPT/HCPCS: 71045; 94644; 99285; J7512

== ENCOUNTER 2021-04-02 23:56 | Emergency (ER) | payer MEDICAID ==
[~2021-04-02] VITALS: Ht 180.3 cm; Wt 90.7 kg
[~2021-04-02 23:56] MED LIST changes: +PRED20TA PO
--- NOTE | 2021-04-03 00:33 | NUR ---
BIB SELF C/O SOB X2DAYS DUE TO HX COPD. HAS BEEN USING PRESCRIBED INHALER WITH MINIMAL RELIEF, HOWEVER HE FINISHED THE INHALER TODAY. PT SATTING 94% WITH MILD LABORED BREATHING WHEEZES NOTED TO LUNGS BILATERALLY. PLACED ON MONITOR MD WAS AT THE BEDSIDE FOR EVAL.
[2021-04-03] MEDS: ALBUTEROL FS 2.5 MG/3 ML VIAL.NEB CONTNEB ONE (01:17)
[2021-04-03] MEDS: IPRATROPIUM NEB FS 0.5 MG/2.5 ML AMPUL.NEB NEB ONE ×2 (01:17→03:16)
[2021-04-03] MEDS ORDERED: ALBUTEROL FS 2.5 MG/3 ML VIAL.NEB ONE ×2 (01:18→03:17)
[2021-04-03] MEDS ORDERED: IPRATROPIUM NEB FS 0.5 MG/2.5 ML AMPUL.NEB ONE ×2 (01:18→03:17)
--- NOTE | 2021-04-03 01:20 | NUR ---
RT AT BEDSIDE
[2021-04-03] MEDS ORDERED: methylPREDNISolone SOD SUCC 125 MG/2ML VIAL ONE (02:05)
[2021-04-03] MEDS: methylPREDNISolone SOD SUCC 125 MG/2ML VIAL IM ONE (02:10)
--- NOTE | 2021-04-03 02:11 | NUR ---
BREATHING TREATMENT COMPLETED. PT REPORTS IMPROVEMENT IN BREATHING BREATHING EVEN AND UNLABORED. 98% RA.
[2021-04-03] MEDS: ALBUTEROL FS 2.5 MG/3 ML VIAL.NEB NEB ONE (03:16)
--- NOTE | 2021-04-03 03:39 | NUR ---
PATIENT RECIEVING SECOND BREATHING TREATMENT
[2021-04-03] MEDS ORDERED: ALBU8.5H8 INH (03:44)
[2021-04-03] MEDS ORDERED: PRED20TA PO (03:44)
--- NOTE | 2021-04-03 04:02 | NUR ---
PT REPORTS AN IMPROVEMENT IN BREATHING. BREATHING IS EVEN AND UNLABORED SATTING 99% RA BILATERAL IMPROVEMENT IN WHEEZES. PT DISCHARGED HOME IN STABLE CONDITION. WRITTEN AND VERBAL AFTERCARE INSTRUCTIONS PROVIDED AND PATIENT REPORTS UNDERSTANDING OF INSTRUCTIONS. ALL VITALS STABLE AT TIME OF DISCHARGE.
[2021-04-03 04:05] VITALS: BP 146/84
== END 2021-04-03 04:05 | disposition home or self-care (01) ==
LOC: ER 23:59
DX: R06.03 Acute respiratory distress (principal); J44.1 Chronic obstructive pulmonary disease with (acute) exacerbation; Z98.890 Other specified postprocedural states; Z88.8 Allergy status to other drugs, medicaments and biological substances; Z60.2 Problems related to living alone; Z87.891 Personal history of nicotine dependence; Z79.899 Other long term (current) drug therapy
CPT/HCPCS: 94640 ×2; 94644; 96372; 99291; J2930

== ENCOUNTER 2021-04-20 14:49 | Inpatient (IN) | payer MEDICAID ==
[~2021-04-20] VITALS: Ht 180.3 cm; Wt 92.5 kg
--- NOTE | 2021-04-20 14:51 | NUR ---
TO ER BED 6, C/O WORSENING SOB X "FEW" DAYS, AAOX3, BREATHING EVEN AND NON LABORED, HX OF COPD AND DEVIATED SEPTUM, CONNECTED TO MONITOR
[2021-04-20] MEDS ORDERED: IPRATROPIUM NEB FS 0.5 MG/2.5 ML AMPUL.NEB NEB ONE ×2 (15:30→17:00)
[2021-04-20] MEDS ORDERED: predniSONE 20 MG TABLET PO ONE (15:30)
[2021-04-20] MEDS ORDERED: ALBUTEROL FS 2.5 MG/0.5 ML VIAL.NEB NEB ONE ×2 (15:30→17:00)
[2021-04-20] MEDS ORDERED: IV NS 0.9% 500 ML BAG IV ONE (15:30)
[2021-04-20] MEDS ORDERED: predniSONE 20 MG TABLET ONE (15:32)
[2021-04-20] MEDS ORDERED: ALBUTEROL FS 2.5 MG/0.5 ML VIAL.NEB ONE ×2 (15:38→16:50)
[2021-04-20] MEDS ORDERED: IPRATROPIUM NEB FS 0.5 MG/2.5 ML AMPUL.NEB ONE ×2 (15:38→16:50)
[2021-04-20 15:55] LABS: BASOPHILS # (AUTO) 0.2 K/uL (0.0-0.2); EOSINOPHILS % (AUTO) 12.4 % (0.0-6.0); HEMATOCRIT 49 % (39-51); HEMOGLOBIN 16.2 g/dL (13.5-17.5); LYMPHOCYTES # (AUTO) 1.4 K/uL (0.8-4.8); LYMPHOCYTES % (AUTO) 17.6 % (20.0-44.0); MEAN CORPUSCULAR HGB CONC 33 g/dl (31.0-36.0); MEAN CORPUSCULAR VOLUME 87 fL (80-96); MONOCYTES # (AUTO) 0.5 K/uL (0.1-1.30); NEUTROPHILS # (AUTO) 4.7 K/uL (1.8-8.9); PLATELET COUNT (AUTO) 289 K/uL (150-450); RED BLOOD CELL COUNT(AUTO) 5.59 MIL/uL (4.5-6.0); WHITE BLOOD COUNT (AUTO) 7.7 K/uL (4.3-11.0)
[2021-04-20 16:12] LABS: CALCIUM, SERUM 8.7 mg/dL (8.5-10.1); CARBON DIOXIDE 26 mmol/L (21-32); CHLORIDE 105 mmol/L (98-107); GLUCOSE 106 mg/dL (74-106); POTASSIUM 3.4 mmol/L (3.5-5.1); SODIUM SERUM 139 mmol/L (136-145); UREA NITROGEN, BLOOD 15 mg/dL (7-18)
--- NOTE | 2021-04-20 16:17 | NUR ---
COVID PCR SWAB DONE AND SENT TO LAB
[2021-04-20] MEDS ORDERED: CEFTRIAXONE 1 G in IV D5W 50 ML IV ONE (17:00)
[2021-04-20] MEDS ORDERED: CEFTRIAXONE 1GM BAG (ER ONLY) 50 ML IV ONE (17:28)
--- NOTE | 2021-04-20 17:48 | NUR ---
COVID ANTIGEN SWAB AND SENT
[2021-04-20] MEDS ORDERED: MAG HYDROX/AL HYDROX/SIMETH 30 ML UDC PO PRN (22:00)
[2021-04-20] MEDS ORDERED: ONDANSETRON HCL/PF 4 MG/2 ML VIAL IVP PRN (22:00)
[2021-04-20] MEDS ORDERED: MAGNESIUM HYDROXIDE 30 ML UDC PO PRN (22:00)
[2021-04-20] MEDS ORDERED: ACETAMINOPHEN 325 MG TABLET PO PRN (22:00)
[2021-04-20] MEDS ORDERED: Z GUARD REMEDY 2 OZ OINT TP PRN (22:00)
--- NOTE | 2021-04-20 22:32 | NUR ---
BED 115
[2021-04-20] MEDS ORDERED: ALBUTEROL FS 2.5 MG/3 ML VIAL.NEB NEB PRN (23:45)
--- NOTE | 2021-04-21 00:13 | NUR ---
REPORT GIVEN TO NIA STREET FOR JESSICA
--- NOTE | 2021-04-21 00:14 | NUR ---
RN notes Received report from YENIFER Solano.
--- NOTE | 2021-04-21 00:16 | NUR ---
PT TRANSFERED PER ACLS PROTOCOL
--- NOTE | 2021-04-21 00:35 | NUR ---
activity aide notes Received Pt from YENIFER Romero. Pt arrived in our unit with a gurney. Pt is alert and orientedX4. Pt is able to ambulates with a steady gait. Respiration is in 2 L NC with saturation 95%. No SOB. No S/S of distress noted. IV site at R wrist# 20 is clean, intact and flushes well. Pt denies any allergy. Pt stated " i don't have any allergy." Skin assessment is done and performed. Pt's skin is intact. Pt's belonging is checked by JOSE CARLOS Martini. Reorient Pt to the room and call light. Pt verbalized understanding. Received admission orders from Micaela Negro NP. Safety precautions is maintained. Bed at low position, brakes locked, side railsupX2, urinal at the bedside and call light is within reach. Will continue to monitor.
[2021-04-21 00:39] VITALS: BP 171/94
[2021-04-21] MEDS ORDERED: LEVOFLOXACIN 500 MG /D5W 100ML 100 ML IV ONE (00:39)
--- NOTE | 2021-04-21 00:50 | NUR ---
RN notes Informed and notified MD regarding Pt's potassium 3.4. MD ordered kdur 20 meq/po X1. Order carried out.
[2021-04-21] MEDS: LEVOFLOXACIN 500 MG /D5W 100ML 500 MG in PREMIX 1 EA IV SCH (00:53)
[2021-04-21] MEDS ORDERED: POTASSIUM CHLORIDE 20 MEQ TAB.PRT.SR PO ONE (01:00)
[2021-04-21] MEDS: ALBUTEROL FS 2.5 MG/3 ML VIAL.NEB NEB SCH ×4 (01:30→19:15)
[2021-04-21 01:35] VITALS: BP 138/93
--- NOTE | 2021-04-21 01:35 | NUR ---
RN notes Rechecked BP at 0135 am. BP 138/93. pulse 60. Pt is siting in bed comfortably watching TV. No SOB. No S/S of distress noted. Snacks is given and provided. Will continue to monitor.
--- NOTE | 2021-04-21 03:08 | NUR ---
RN notes Pt is requesting inhaler. Informed and notified MD. MD ordered abuterol inhaler/ 2 puffs/Q 4hr/prn. Charge nurse is aware and informed. Order carried out.
[2021-04-21] MEDS ORDERED: ALBUTEROL SULFATE INH 18 GM HFA.AER.AD IH PRN (03:30)
[2021-04-21] MEDS ORDERED: ALBUTEROL SULFATE 8 GM HFA.AER.AD ONE (03:57)
[2021-04-21 04:00] VITALS: BP 135/87
[2021-04-21] MEDS: methylPREDNISolone SOD SUCC 40 MG/ML VIAL IV SCH ×3 (04:13→22:19)
--- NOTE | 2021-04-21 06:35 | NUR ---
RN ms closing notes Pt is resting in bed comfortably. Pt is alert and orientedX4. Respiration on 2 L NC. No SOB. No S/s of distress noted. Vs is stable. IV site at R wrist # 20 is clean, intact and SL. Routine meds were given as ordered. Kept Pt clean, dry and comfortable. All needs met and attended. Safety precautions is maintained. Bed at low position, brakes locked, side rails upX2 and call light is within reach. will endorse to am nurse for JESSICA.
[2021-04-21 07:34] LABS: CREATININE 0.9 mg/dL (0.6-1.3); PHOSPHORUS 2.4 mg/dL (2.5-4.9)
[2021-04-21 07:37] LABS: BASOPHILS % (AUTO) 0.2 % (0.0-2.0); EOSINOPHILS % (AUTO) 0.1 % (0.0-6.0); HEMATOCRIT 46 % (39-51); HEMOGLOBIN 15.5 g/dL (13.5-17.5); LYMPHOCYTES # (AUTO) 0.6 K/uL (0.8-4.8); LYMPHOCYTES % (AUTO) 5.9 % (20.0-44.0); MEAN CORPUSCULAR HGB CONC 34 g/dl (31.0-36.0); MEAN CORPUSCULAR VOLUME 87 fL (80-96); MONOCYTES # (AUTO) 0.3 K/uL (0.1-1.30); NEUTROPHILS # (AUTO) 9.9 K/uL (1.8-8.9); NEUTROPHILS % (AUTO) 90.8 % (43.0-81.0); PLATELET COUNT (AUTO) 318 K/uL (150-450); RED BLOOD CELL COUNT(AUTO) 5.27 MIL/uL (4.5-6.0); WHITE BLOOD COUNT (AUTO) 10.9 K/uL (4.3-11.0)
--- NOTE | 2021-04-21 07:44 | NUR ---
RN OPENING notes Received pt resting in bed comfortably. Pt is alert and orientedX4. Respiration on 2 L NC. No SOB. No S/s of distress noted at this time. IV site at R wrist # 20 is clean, intact and flushing well. Safety precautions in place Bed at low position and locked, side rails upX2 and call light is within reach. will continue to monitor.
[2021-04-21] MEDS: BUDESONIDE RESPULE INH 0.5 MG/2 ML AMPUL.NEB IH SCH ×2 (08:33→15:00)
[2021-04-21] MEDS ORDERED: K PHOS NEUTRAL 250 MG TABLET PO ONE (10:00)
[2021-04-21 12:00] VITALS: BP 149/84
--- NOTE | 2021-04-21 12:00 | NUR ---
rn note pt is resting in bed no significant change at this time, will continue to monitor
--- NOTE | 2021-04-21 18:37 | NUR ---
RN CLOSING notes PATIENT IS resting in bed comfortably. Pt is alert and orientedX4. Respiration on 2 L NC 95% No SOB. No S/s of distress noted at this time. IV site at R wrist # 20 is clean, intact and flushing well. Safety precautions in place Bed at low position and locked, side rails upX2 and call light is within reach. will endorse to maintenance technician 3rd shift RN
--- NOTE | 2021-04-21 19:15 | NUR ---
RT NOTE UNABLE TO GIVE TX D/T R/O FOR COVID. RN AWARE
--- NOTE | 2021-04-21 19:30 | NUR ---
MS RN OPENING NOTES: RECEIVED PATIENT IN BED, AWAKE, A/O X4. NO S/S OF DISTRESS NOTED. NO COMPLAIN OF PAIN. CALL LIGHT WITHIN REACH. BED IN LOWEST AND LOCKED POSITION. HOB ELEVATED. ON O2 AT 2L/MIN NASAL CANNULA.
[2021-04-21 20:00] VITALS: BP 153/90
[2021-04-22] MEDS ORDERED: BENZONATATE 100 MG CAPSULE PO PRN
[2021-04-22] MEDS: ALBUTEROL FS 2.5 MG/3 ML VIAL.NEB NEB SCH ×2 (00:39→07:35)
[2021-04-22] MEDS: LEVOFLOXACIN 500 MG /D5W 100ML 500 MG in PREMIX 1 EA IV SCH ×2 (00:58→23:06)
[2021-04-22] MEDS: TEMAZEPAM 15 MG CAPSULE PO PRN ×2 (01:00→23:06)
[2021-04-22] MEDS: methylPREDNISolone SOD SUCC 40 MG/ML VIAL IV SCH ×3 (05:38→21:02)
[2021-04-22] MEDS: BUDESONIDE RESPULE INH 0.5 MG/2 ML AMPUL.NEB IH SCH ×2 (07:05→15:00)
[2021-04-22 07:33] LABS: CALCIUM, SERUM 8.7 mg/dL (8.5-10.1); CREATININE 1.1 mg/dL (0.6-1.3); PHOSPHORUS 4.4 mg/dL (2.5-4.9); POTASSIUM 4.4 mmol/L (3.5-5.1)
--- NOTE | 2021-04-22 07:45 | NUR ---
RN OPENING NOTES RECEIVED PATIENT ON BED, SLEEPING A/O X 4 RESPONDED TO NAME, RESPIRATORY EVEN AND UNLABORED, ON RA 20G WITH NO SOB NOTED, DENIES PAIN, NO S/S OF DISTRESS NOTE. SAFETY PROTOCOL IN PLACE BED IN LOWEST POSITION, LOCKED, SIDE RAILS UP, BED ALARM ARMED. CALL LIGHT WITH IN REACH
[2021-04-22 08:00] VITALS: BP 140/85
[2021-04-22] MEDS ORDERED: ALBUTEROL SULFATE INH 18 GM HFA.AER.AD IH PRN ×2 (10:00)
[2021-04-22] MEDS ORDERED: ALBUTEROL SULFATE 8 GM HFA.AER.AD IH PRN (10:00)
--- NOTE | 2021-04-22 10:48 | NUR ---
RN NOTE ROUNDS MADE, PATIENT IN BED RESTING WITH NC AT 2L NO REPORTS OF RESPIRATORY DISTRESS. SAFETY PROTOCOL IN PLACE, BED IN LOWEST POSITION, CALL LIGHT WITHIN REACH, SIDE RAILS UP X2.
[2021-04-22] MEDS: ALBUTEROL SULFATE INH 18 GM HFA.AER.AD IH SCH ×2 (12:32→21:02)
--- NOTE | 2021-04-22 15:12 | NUR ---
RN NOTE PATIENT UNABLE TO RECEIVE PULMICORT MEDICATION FROM RT DUE TO PCR PENDING PER POLICY .
--- NOTE | 2021-04-22 15:13 | NUR ---
RN NOTE DR CLARKE AT BEDSIDE, INFORMED THAT PATIENT EXPRESSED WANTING TO LEAVE THIS MORNING. PER PATIENTS PCR IS STILL PENDING AND IS ON 2 L NC. PATIENT UNDERSTOOD TREATMENT PLAN.
[2021-04-22 16:00] VITALS: BP 135/77
--- NOTE | 2021-04-22 18:21 | NUR ---
RN CLOSING NOTE PATIENT REMAINS IN ROOM IN NO SIGNS OF RESPIRATORY DISTRESS OR PAIN, PATIENT ON 2L OF 02 VIA NC ;TOLERATING WELL SATURATING @ >95% SP02. SAFETY MEASURES IMPLEMENTED, BED IN LOWEST POSITION, LOCKED, SIDE RAILS UP, CALL LIGHT WITHIN REACH. ALL NEEDS AND ORDERS ADDRESSED DURING THE SHIFT. IV ACCESS MAINTAINED INTACT, SECURED AND FLUSHING WELL. ALL DUE MEDS GIVEN ORDERED & SCHEDULED; PATIENT TOLERATED WELL. PATIENT KEPT CLEAN AND COMFORTABLE WITHIN THE SHIFT. PATIENT ENDORSED TO COOKER SYRUP FOR JESSICA.
--- NOTE | 2021-04-22 19:40 | NUR ---
RN OPENING NOTES: RECEIVED PATIENT IN BED AWAKE, ALERT, ORIENTED X4 AND VERBALLY RESPONSIVE. ON O2 2L/MIN VIA N/C. NO SOB. BREATHING EVEN AND UNLABORED. NO ON AND OFF NON-PRODUCTIVE COUGH. IV ACCESS ON RT WRIST INTACT AND PATENT. NO S/S OF INFILTRATIONS. NO C/O PAIN OR DISCOMFORT. NO ACUTE DISTRESS NOTED. CONTINENT ON BOWEL AND BLADDER. ALL SAFETY MEASURES ON PLACE. BOTH BED SIDE RAILS UP. PLACE CALL LIGHT WITH IN REACH. WILL CONTINUE TO MONITOR.
[2021-04-22 20:00] VITALS: BP 151/80
--- NOTE | 2021-04-22 23:15 | NUR ---
PATIENT C/O UNABLE TO SLEEP, RESTORIL GIVEN PRN ORDER AND PATIENT TOLERATED WELL
[2021-04-23] MEDS: ALBUTEROL SULFATE INH 18 GM HFA.AER.AD IH SCH (02:15)
[2021-04-23 04:00] VITALS: BP 142/87
[2021-04-23] MEDS: methylPREDNISolone SOD SUCC 40 MG/ML VIAL IV SCH ×3 (04:28→21:41)
--- NOTE | 2021-04-23 06:50 | NUR ---
RN CLOSING NOTES: PATIENT IN BED AWAKE, ALERT, ORIENTED X4 AND VERBALLY RESPONSIVE. ON O2 2L/MIN VIA N/C. O2 SAT 94%. NOTED ON AND OFF NON-PRODUCTIVE COUGH. BUT REFUSED COUGH MEDICATION. BREATHING EVEN AND UNLABORED. IV ACCESS ON RT WRIST LEAKING. NEW IV SITE INSERTED ON RAC#22G INTACT AND PATENT. NO S/S OF INFILTRATIONS. NO C/O PAIN OR DISCOMFORT. NO ACUTE DISTRESS NOTED. CONTINENT ON BOWEL AND BLADDER. ABLE TO GO TO RESTROOM W/ ASSIST. ALL SAFETY MEASURES ON PLACE. BOTH SIDE RAILS UP. BED IN LOW POSITION AND LOCKED. PLACE CALL LIGHT WITH IN REACH. WILL ENDORSE TO MORNING SHIFT NURSE.
[2021-04-23] MEDS: BUDESONIDE RESPULE INH 0.5 MG/2 ML AMPUL.NEB IH SCH ×2 (07:05→15:45)
[2021-04-23 07:08] LABS: BASOPHILS % (AUTO) 0.1 % (0.0-2.0); HEMATOCRIT 49 % (39-51); HEMOGLOBIN 16.4 g/dL (13.5-17.5); LYMPHOCYTES # (AUTO) 0.5 K/uL (0.8-4.8); LYMPHOCYTES % (AUTO) 2.6 % (20.0-44.0); MEAN CORPUSCULAR HGB CONC 34 g/dl (31.0-36.0); MEAN CORPUSCULAR VOLUME 87 fL (80-96); MONOCYTES # (AUTO) 0.4 K/uL (0.1-1.30); NEUTROPHILS # (AUTO) 19.3 K/uL (1.8-8.9); NEUTROPHILS % (AUTO) 95.3 % (43.0-81.0); PLATELET COUNT (AUTO) 339 K/uL (150-450); RED BLOOD CELL COUNT(AUTO) 5.63 MIL/uL (4.5-6.0); WHITE BLOOD COUNT (AUTO) 20.3 K/uL (4.3-11.0)
[2021-04-23 07:19] LABS: CALCIUM, SERUM 9.2 mg/dL (8.5-10.1); CREATININE 1.1 mg/dL (0.6-1.3); MAGNESIUM 2.5 mg/dL (1.8-2.4); PHOSPHORUS 4.2 mg/dL (2.5-4.9); POTASSIUM 4.3 mmol/L (3.5-5.1)
--- NOTE | 2021-04-23 07:50 | NUR ---
RN MORNING NOTES PT RECEIVED IN BED SLEEPING. PT IS ON 2L O2 VIA NC TOLERATING WELL WITH NO SIGNS OF DISTRESS OR LABORED BREATHING. PT IS A/OX4 AND MS AND AMBULATORY. PT IS ON REGULAR DIET WITH R AC #22G PATENT AND FLUSHING. BED IS LOCKED IN LOWEST POSITION X2 GUARD RAILS, CALL ABAD WITHIN REACH, AND ALL HOSPITAL SAFETY PRECAUTIONS ARE IN PLACE. WILL CONTINUE TO MONITOR THIS SHIFT.
[2021-04-23] MEDS: IPRATROPIUM/ALBUTEROL INHALER IH SCH ×3 (11:30→21:38)
[2021-04-23 12:00] VITALS: BP 120/76
--- NOTE | 2021-04-23 19:19 | NUR ---
RN CLOSING NOTE PT IS RESTING COMFORTABLY IN BED. PT IS ON 2L O2 VIA NC TOLERATING WELL WITH NO SIGNS OF DISTRESS OR LABORED BREATHING. PT IS A/OX4 AND MS AND AMBULATORY. PT IS ON REGULAR DIET WITH R AC #22G PATENT AND FLUSHING. BED IS LOCKED IN LOWEST POSITION X2 GUARD RAILS, CALL ABAD WITHIN REACH, AND ALL HOSPITAL SAFETY PRECAUTIONS ARE IN PLACE. WILL ENDORSE TO VOICE WRITING REPORTER NURSE FOR JESSICA.
--- NOTE | 2021-04-23 19:25 | NUR ---
1925 Report received from YENIFER Johnston for transfer of care.
[2021-04-23 20:00] VITALS: BP 128/96
--- NOTE | 2021-04-23 20:10 | NUR ---
2009 Patient awake in bed watching TV. No complain of SOB or difficulty breathing. Tolerates O2 at 2L per NC. Able to move in bed independently. HOB elevated for maximum oxygenation. IV access on right AC intact and patent. Call light placed within reach and instructed patient to call for assistance.
[2021-04-23] MEDS ORDERED: LEVOFLOXACIN (250MG) 250 MG TABLET PO SCH (23:00)
[2021-04-23] MEDS: TEMAZEPAM 15 MG CAPSULE PO PRN (23:26)
--- NOTE | 2021-04-24 | NUR ---
0000 Patient sleeping comfortably. No signs of distress noted. Able to turn and reposition self independently.
[2021-04-24 04:00] VITALS: BP 131/94
--- NOTE | 2021-04-24 04:00 | NUR ---
0400 No acute changes in condition noted. No c/o sob or difficulty breathing when asked. Turns and repositions self. Kept comfortable. Needs anticipated.
[2021-04-24] MEDS: methylPREDNISolone SOD SUCC 40 MG/ML VIAL IV SCH ×2 (04:43→12:30)
[2021-04-24] MEDS: IPRATROPIUM/ALBUTEROL INHALER IH SCH ×2 (04:46→07:42)
[2021-04-24 07:08] LABS: BASOPHILS % (AUTO) 0.2 % (0.0-2.0); HEMATOCRIT 50 % (39-51); HEMOGLOBIN 16.9 g/dL (13.5-17.5); LYMPHOCYTES # (AUTO) 0.5 K/uL (0.8-4.8); LYMPHOCYTES % (AUTO) 3.2 % (20.0-44.0); MEAN CORPUSCULAR HGB CONC 34 g/dl (31.0-36.0); MEAN CORPUSCULAR VOLUME 87 fL (80-96); MONOCYTES # (AUTO) 0.4 K/uL (0.1-1.30); MONOCYTES % (AUTO) 2.7 % (2.0-12.0); NEUTROPHILS # (AUTO) 14.9 K/uL (1.8-8.9); NEUTROPHILS % (AUTO) 93.9 % (43.0-81.0); PLATELET COUNT (AUTO) 349 K/uL (150-450); RED BLOOD CELL COUNT(AUTO) 5.77 MIL/uL (4.5-6.0); WHITE BLOOD COUNT (AUTO) 15.9 K/uL (4.3-11.0)
--- NOTE | 2021-04-24 07:15 | NUR ---
0715 REPORT GIVEN TO YENIFER SEAY AND ROBERT FOR TRANSFER OF CARE WITH QUESTIONS ANSWERED.
[2021-04-24 07:26] LABS: CALCIUM, SERUM 8.9 mg/dL (8.5-10.1); MAGNESIUM 2.5 mg/dL (1.8-2.4); PHOSPHORUS 4.5 mg/dL (2.5-4.9); POTASSIUM 4.3 mmol/L (3.5-5.1)
--- NOTE | 2021-04-24 07:34 | NUR ---
RN MORNING NOTES PT RECEIVED IN BED SLEEPING. PT IS ON 2L O2 VIA NC TOLERATING WELL WITH NO SIGNS OF DISTRESS OR LABORED BREATHING. PT IS A/OX4 AND MS AND AMBULATORY. PT IS ON REGULAR DIET WITH R AC #22G PATENT AND FLUSHING. BED IS LOCKED IN LOWEST POSITION X2 GUARD RAILS, CALL ABAD WITHIN REACH, AND ALL HOSPITAL SAFETY PRECAUTIONS ARE IN PLACE..
[2021-04-24 08:00] VITALS: BP 124/91
[2021-04-24] MEDS ORDERED: PRED50TA PO (13:50)
[2021-04-24] MEDS ORDERED: LEVO250T59 PO (13:50)
[2021-04-24] MEDS ORDERED: Ipratropium/Albuterol Sulfate IH (13:50)
[2021-04-24] MEDS ORDERED: PRED20TA PO (13:50)
[2021-04-24] MEDS ORDERED: METH4TAB17 PO (13:50)
[2021-04-24 16:00] VITALS: BP 132/96
--- NOTE | 2021-04-24 16:36 | NUR ---
RN NOTE PATIENT ADVISED AGAINST LEAVING AMA, PT INSISTED AND SIGNED AMA FORM, FORM PLACED IN CHART DOCTOR NOTIFIED.
--- NOTE | 2021-04-24 16:42 | NUR ---
RN NOTE DISCHARGE ORDER RECEIVED PATIENT LEFT AMA, CALLED PATIENT AND INFORMED THEM PRESCRIPTIONS WILL BE SENT TO [facility].
== END 2021-04-24 16:30 | disposition home or self-care (01) | DRG 140 ==
LOC: ER 15:36 → TELE1 23:09 → MEDSG1 23:54
PROVIDERS: ADMIT Nurse Practitioner Acute Care; ATTEND Nurse Practitioner Acute Care
DX: J44.1 Chronic obstructive pulmonary disease with (acute) exacerbation (principal); J96.00 Acute respiratory failure, unspecified whether with hypoxia or hypercapnia; Z87.891 Personal history of nicotine dependence; E87.6 Hypokalemia; Z79.51 Long term (current) use of inhaled steroids; Z83.3 Family history of diabetes mellitus; D72.829 Elevated white blood cell count, unspecified; D75.1 Secondary polycythemia; Z20.822 Contact with and (suspected) exposure to COVID-19
CPT/HCPCS: 36415; 71045-TC; 80048-TC; 83735-TC; 84100-TC; 84484-TC; 85025-TC; 87081-TC; 94799-TC; A4216; C9803; G0378; J0696; J1956; J2920; J7030; J7050; J7060; U0003

== ENCOUNTER 2021-06-09 05:03 | Emergency (ER) | payer MEDICAID ==
[~2021-06-09] VITALS: Ht 154.9 cm; Wt 92.5 kg
[~2021-06-09 05:03] MED LIST changes: +Ipratropium/Albuterol Sulfate IH; +LEVO250T59 PO; +METH4TAB17 PO
--- NOTE | 2021-06-09 05:17 | NUR ---
PT BIBS C/O SOB S/P COPD EXACERBATION "I RAN OUT OF ALBUTEROL". PATIENT ALERT AND ORIENTED X3 AMBULATORY SATTING AT 94%. PATIENT PLACED IN BED 07 ON MONITOR AND POX.
--- NOTE | 2021-06-09 05:27 | NUR ---
RT AT BEDSIDE
[2021-06-09] MEDS: ALBUTEROL FS 2.5 MG/0.5 ML VIAL.NEB NEB ONE (05:30)
[2021-06-09] MEDS ORDERED: ALBUTEROL FS 2.5 MG/0.5 ML VIAL.NEB ONE (06:05)
[2021-06-09] MEDS ORDERED: ALBU18HF2 INH (06:43)
--- NOTE | 2021-06-09 06:52 | NUR ---
PT DISCHARGED HOME IN STABLE CONDITION. PT REPORTS IMPROVEMENT IN BREATHING, BREATHING EVEN AND UNLABORED WITH A RR OF 18 AND 98% RA. LUNG SOUNDS IMPROVED BILATERALLY.WRITTEN AND VERBAL DISCHARGE INSTRUCTIONS PROVIDED AND PT VERBALIZES UNDERSTANDING OF INSTRUCTIONS. PT AMBULATED OUT OF ER WITHOUT INCIDENT.
[2021-06-09 06:55] VITALS: BP 137/94
[2021-06-17] MEDS ORDERED: PRED5TAB48 PO (11:05)
[2021-06-17] MEDS ORDERED: BUDE10.2 INH (11:05)
[2021-06-17] MEDS ORDERED: ALBU8.5H8 INH (11:05)
[2021-06-17] MEDS ORDERED: DOXY100C2 PO (11:08)
== END 2021-06-09 06:55 | disposition home or self-care (01) ==
LOC: ER 05:05
DX: J44.9 Chronic obstructive pulmonary disease, unspecified (principal); Z98.890 Other specified postprocedural states; Z87.891 Personal history of nicotine dependence; Z60.2 Problems related to living alone; Z79.899 Other long term (current) drug therapy

== ENCOUNTER 2021-06-14 07:06 | Inpatient (IN) | payer MEDICAID ==
[~2021-06-14] VITALS: Ht 180.3 cm; Wt 93.0 kg
[~2021-06-14 07:06] MED LIST changes: +ALBU18HF2 INH
[2021-06-14] MEDS ORDERED: methylPREDNISolone SOD SUCC 125 MG/2ML VIAL ONE (07:21)
[2021-06-14] MEDS ORDERED: ALBUTEROL FS 2.5 MG/3 ML VIAL.NEB ONE ×2 (07:27→07:52)
[2021-06-14] MEDS ORDERED: IPRATROPIUM NEB FS 0.5 MG/2.5 ML AMPUL.NEB ONE ×2 (07:27→07:52)
[2021-06-14] MEDS ORDERED: ALBUTEROL FS 2.5 MG/3 ML VIAL.NEB NEB ONE ×2 (07:30→08:00)
[2021-06-14] MEDS ORDERED: IPRATROPIUM NEB FS 0.5 MG/2.5 ML AMPUL.NEB NEB ONE ×2 (07:30→08:00)
[2021-06-14] MEDS ORDERED: IV NS 0.9% 1,000 ML BAG IV ONE (07:30)
[2021-06-14] MEDS ORDERED: methylPREDNISolone SOD SUCC 125 MG/2ML VIAL IV ONE (07:30)
[2021-06-14] MEDS ORDERED: Magnesium 1GM/D5W 100ML PREMIX 100 ML IV ONE (07:57)
[2021-06-14] MEDS: Magnesium 1GM/D5W 100ML PREMIX 200 ML IV ONE (07:58)
[2021-06-14 10:16] LABS: BASOPHILS # (AUTO) 0.1 K/uL (0.0-0.2); EOSINOPHILS % (AUTO) 3.4 % (0.0-6.0); HEMATOCRIT 43 % (39-51); HEMOGLOBIN 14.6 g/dL (13.5-17.5); LYMPHOCYTES # (AUTO) 0.7 K/uL (0.8-4.8); LYMPHOCYTES % (AUTO) 9.4 % (20.0-44.0); MEAN CORPUSCULAR HGB CONC 34 g/dl (31.0-36.0); MEAN CORPUSCULAR VOLUME 87 fL (80-96); MONOCYTES # (AUTO) 0.2 K/uL (0.1-1.30); MONOCYTES % (AUTO) 2.3 % (2.0-12.0); NEUTROPHILS # (AUTO) 6.2 K/uL (1.8-8.9); NEUTROPHILS % (AUTO) 83.9 % (43.0-81.0); PLATELET COUNT (AUTO) 380 K/uL (150-450); RED BLOOD CELL COUNT(AUTO) 4.99 MIL/uL (4.5-6.0); WHITE BLOOD COUNT (AUTO) 7.4 K/uL (4.3-11.0)
[2021-06-14 10:42] LABS: CALCIUM, SERUM 8.6 mg/dL (8.5-10.1); CARBON DIOXIDE 27 mmol/L (21-32); CHLORIDE 105 mmol/L (98-107); CREATININE 0.9 mg/dL (0.6-1.3); GLUCOSE 121 mg/dL (74-106); POTASSIUM 3.4 mmol/L (3.5-5.1); SODIUM SERUM 139 mmol/L (136-145); UREA NITROGEN, BLOOD 11 mg/dL (7-18)
[2021-06-14] MEDS ORDERED: HYDROCODONE/APAP 5/325MG TABLET PO PRN (14:00)
[2021-06-14] MEDS ORDERED: POTASSIUM CHLORIDE 20 MEQ TAB.PRT.SR PO ONE (14:00)
[2021-06-14] MEDS ORDERED: ONDANSETRON HCL/PF 4 MG/2 ML VIAL IVP PRN (14:00)
[2021-06-14] MEDS ORDERED: Z GUARD REMEDY 4 OZ OINT TP PRN (14:00)
[2021-06-14] MEDS ORDERED: ACETAMINOPHEN 325 MG TABLET PO PRN (14:00)
[2021-06-14] MEDS: ENOXAPARIN SODIUM 40 MG/0.4 ML DISP.SYRIN SQ SCH (14:17)
[2021-06-14] MEDS ORDERED: ALBUTEROL FS 2.5 MG/3 ML VIAL.NEB NEB SCH (15:30)
[2021-06-14] MEDS: ALBUTEROL FS 2.5 MG/3 ML VIAL.NEB NEB SCH ×3 (16:18→23:49)
[2021-06-14] MEDS: IPRATROPIUM NEB FS 0.5 MG/2.5 ML AMPUL.NEB NEB SCH ×3 (16:18→23:49)
[2021-06-14 20:00] VITALS: BP 136/102
[2021-06-14] MEDS: methylPREDNISolone SOD SUCC 125 MG/2ML VIAL IV SCH (20:59)
[2021-06-14] MEDS: DOXYCYCLINE HYCLATE (100 MG) 100 MG TABLET PO SCH (21:00)
[2021-06-14] MEDS: ZOLPIDEM TARTRATE 5 MG TABLET PO PRN (21:00)
[2021-06-15] VITALS: BP 144/104
[2021-06-15] MEDS: ALBUTEROL FS 2.5 MG/3 ML VIAL.NEB NEB SCH ×6 (03:50→23:09)
[2021-06-15] MEDS: IPRATROPIUM NEB FS 0.5 MG/2.5 ML AMPUL.NEB NEB SCH ×6 (03:50→23:09)
[2021-06-15 04:00] VITALS: BP 147/75
[2021-06-15] MEDS: methylPREDNISolone SOD SUCC 125 MG/2ML VIAL IV SCH ×2 (05:31→13:13)
[2021-06-15 06:52] LABS: BASOPHILS % (AUTO) 0.2 % (0.0-2.0); HEMATOCRIT 44 % (39-51); HEMOGLOBIN 15.1 g/dL (13.5-17.5); LYMPHOCYTES # (AUTO) 0.7 K/uL (0.8-4.8); LYMPHOCYTES % (AUTO) 5.8 % (20.0-44.0); MEAN CORPUSCULAR HGB CONC 34 g/dl (31.0-36.0); MEAN CORPUSCULAR VOLUME 86 fL (80-96); MONOCYTES # (AUTO) 0.5 K/uL (0.1-1.30); MONOCYTES % (AUTO) 4.1 % (2.0-12.0); NEUTROPHILS # (AUTO) 10.2 K/uL (1.8-8.9); NEUTROPHILS % (AUTO) 89.9 % (43.0-81.0); PLATELET COUNT (AUTO) 432 K/uL (150-450); RED BLOOD CELL COUNT(AUTO) 5.18 MIL/uL (4.5-6.0); WHITE BLOOD COUNT (AUTO) 11.3 K/uL (4.3-11.0)
[2021-06-15 07:09] LABS: CALCIUM, SERUM 9.1 mg/dL (8.5-10.1); CREATININE 0.9 mg/dL (0.6-1.3); MAGNESIUM 2.5 mg/dL (1.8-2.4); POTASSIUM 4.1 mmol/L (3.5-5.1)
[2021-06-15 08:00] VITALS: BP 158/104
[2021-06-15] MEDS: DOXYCYCLINE HYCLATE (100 MG) 100 MG TABLET PO SCH ×2 (09:24→21:01)
[2021-06-15] MEDS: PANTOPRAZOLE 40 MG TABLET.DR PO SCH (09:24)
[2021-06-15 12:00] VITALS: BP 162/112
[2021-06-15] MEDS: ENOXAPARIN SODIUM 40 MG/0.4 ML DISP.SYRIN SQ SCH (15:36)
[2021-06-15 16:00] VITALS: BP 148/81
[2021-06-15 20:00] VITALS: BP 144/89
[2021-06-15] MEDS: ZOLPIDEM TARTRATE 5 MG TABLET PO PRN (21:39)
[2021-06-16 04:00] VITALS: BP 148/98
[2021-06-16] MEDS: ALBUTEROL FS 2.5 MG/3 ML VIAL.NEB NEB SCH ×6 (04:02→23:46)
[2021-06-16] MEDS: IPRATROPIUM NEB FS 0.5 MG/2.5 ML AMPUL.NEB NEB SCH ×6 (04:02→23:45)
[2021-06-16 06:31] LABS: BASOPHILS # (AUTO) 0.1 K/uL (0.0-0.2); BASOPHILS % (AUTO) 0.5 % (0.0-2.0); EOSINOPHILS % (AUTO) 0.1 % (0.0-6.0); HEMATOCRIT 45 % (39-51); HEMOGLOBIN 15.1 g/dL (13.5-17.5); LYMPHOCYTES # (AUTO) 1.4 K/uL (0.8-4.8); LYMPHOCYTES % (AUTO) 7.1 % (20.0-44.0); MEAN CORPUSCULAR HGB CONC 34 g/dl (31.0-36.0); MEAN CORPUSCULAR VOLUME 86 fL (80-96); MONOCYTES # (AUTO) 1.2 K/uL (0.1-1.30); NEUTROPHILS # (AUTO) 17.4 K/uL (1.8-8.9); NEUTROPHILS % (AUTO) 86.3 % (43.0-81.0); PLATELET COUNT (AUTO) 426 K/uL (150-450); RED BLOOD CELL COUNT(AUTO) 5.23 MIL/uL (4.5-6.0); WHITE BLOOD COUNT (AUTO) 20.1 K/uL (4.3-11.0)
[2021-06-16 07:51] LABS: CALCIUM, SERUM 9.7 mg/dL (8.5-10.1); MAGNESIUM 2.8 mg/dL (1.8-2.4)
[2021-06-16 08:00] VITALS: BP 142/94
[2021-06-16] MEDS: methylPREDNISolone SOD SUCC 125 MG/2ML VIAL IV SCH (08:43)
[2021-06-16] MEDS: PANTOPRAZOLE 40 MG TABLET.DR PO SCH (08:43)
[2021-06-16] MEDS: DOXYCYCLINE HYCLATE (100 MG) 100 MG TABLET PO SCH ×2 (08:43→21:03)
[2021-06-16] MEDS ORDERED: BENZONATATE 100 MG CAPSULE PO PRN (11:00)
[2021-06-16 12:00] VITALS: BP 155/90
[2021-06-16] MEDS: ENOXAPARIN SODIUM 40 MG/0.4 ML DISP.SYRIN SQ SCH (13:12)
[2021-06-16 16:00] VITALS: BP 142/81
[2021-06-16 20:00] VITALS: BP_SYST 139; BP_DIAS 93; BP_DIAS 97
[2021-06-16] MEDS: ZOLPIDEM TARTRATE 5 MG TABLET PO PRN (21:03)
[2021-06-17] VITALS: BP 146/97
[2021-06-17] MEDS: IPRATROPIUM NEB FS 0.5 MG/2.5 ML AMPUL.NEB NEB SCH ×3 (03:23→11:09)
[2021-06-17] MEDS: ALBUTEROL FS 2.5 MG/3 ML VIAL.NEB NEB SCH ×3 (03:23→11:09)
[2021-06-17 04:00] VITALS: BP 157/93
[2021-06-17 06:49] LABS: BASOPHILS % (AUTO) 0.3 % (0.0-2.0); EOSINOPHILS % (AUTO) 0.6 % (0.0-6.0); HEMATOCRIT 49 % (39-51); HEMOGLOBIN 16.3 g/dL (13.5-17.5); LYMPHOCYTES # (AUTO) 2.4 K/uL (0.8-4.8); LYMPHOCYTES % (AUTO) 20.8 % (20.0-44.0); MEAN CORPUSCULAR HGB CONC 34 g/dl (31.0-36.0); MEAN CORPUSCULAR VOLUME 86 fL (80-96); MONOCYTES # (AUTO) 1.1 K/uL (0.1-1.30); MONOCYTES % (AUTO) 9.7 % (2.0-12.0); NEUTROPHILS # (AUTO) 7.8 K/uL (1.8-8.9); NEUTROPHILS % (AUTO) 68.6 % (43.0-81.0); PLATELET COUNT (AUTO) 409 K/uL (150-450); RED BLOOD CELL COUNT(AUTO) 5.64 MIL/uL (4.5-6.0); WHITE BLOOD COUNT (AUTO) 11.4 K/uL (4.3-11.0)
[2021-06-17 07:22] LABS: CALCIUM, SERUM 9.1 mg/dL (8.5-10.1); MAGNESIUM 2.6 mg/dL (1.8-2.4); POTASSIUM 3.7 mmol/L (3.5-5.1)
[2021-06-17] MEDS: PANTOPRAZOLE 40 MG TABLET.DR PO SCH (08:10)
[2021-06-17] MEDS: DOXYCYCLINE HYCLATE (100 MG) 100 MG TABLET PO SCH (08:10)
[2021-06-17 08:33] VITALS: BP 142/95
[2021-06-17] MEDS ORDERED: predniSONE 20 MG TABLET PO SCH (09:00)
[2021-06-17] MEDS ORDERED: ALBU8.5H8 INH (11:05)
[2021-06-17] MEDS ORDERED: PRED5TAB48 PO (11:05)
[2021-06-17] MEDS ORDERED: BUDE10.2 INH (11:05)
[2021-06-17] MEDS ORDERED: DOXY100C2 PO (11:08)
[2021-06-17 12:03] VITALS: BP 122/88
== END 2021-06-17 12:30 | disposition home or self-care (01) | DRG 140 ==
LOC: ER 07:19 → TELE 11:46
PROVIDERS: ADMIT Nurse Practitioner Family; ATTEND Nurse Practitioner Family
DX: J44.1 Chronic obstructive pulmonary disease with (acute) exacerbation (principal); J96.01 Acute respiratory failure with hypoxia; E87.6 Hypokalemia; I10 Essential (primary) hypertension; Z20.822 Contact with and (suspected) exposure to COVID-19; Z87.891 Personal history of nicotine dependence; Z83.3 Family history of diabetes mellitus; Z79.51 Long term (current) use of inhaled steroids; D72.829 Elevated white blood cell count, unspecified; T38.0X5A Adverse effect of glucocorticoids and synthetic analogues, initial encounter; Y92.009 Unspecified place in unspecified non-institutional (private) residence as the place of occurrence of the external cause
CPT/HCPCS: 36415; 70220-TC; 71045-TC; 80048-TC; 80061-TC; 83735-TC; 83880; 84484-TC; 85025-TC; 87081-TC; 94760-TC; 94799-TC; C9803; G0378; J1650; J2930; J3475

== ENCOUNTER 2021-08-13 22:45 | Emergency (ER) | payer MEDICAID ==
[~2021-08-13] VITALS: Ht 180.3 cm; Wt 90.7 kg
[~2021-08-13 22:45] MED LIST changes: -ALBU18HF2 INH; -BUDE10.2 IH; +BUDE10.2 INH; +DOXY100C2 PO; -Ipratropium/Albuterol Sulfate IH; -LEVO250T59 PO; -METH4TAB17 PO; -PRED20TA PO; -PRED50TA PO; +PRED5TAB48 PO
[2021-08-13 23:10] VITALS: BP 128/98
[2021-08-13] MEDS ORDERED: ALBU18HF2 INH (23:19)
[2021-08-13] MEDS ORDERED: PRED50TA PO (23:19)
[2021-08-13] MEDS ORDERED: ALBUTEROL FS 2.5 MG/3 ML VIAL.NEB ONE (23:20)
[2021-08-13] MEDS ORDERED: IPRATROPIUM NEB FS 0.5 MG/2.5 ML AMPUL.NEB ONE (23:20)
[2021-08-13] MEDS ORDERED: ALBUTEROL FS 2.5 MG/3 ML VIAL.NEB NEB ONE (23:30)
[2021-08-13] MEDS ORDERED: IPRATROPIUM NEB FS 0.5 MG/2.5 ML AMPUL.NEB NEB ONE (23:30)
[2021-08-13] MEDS ORDERED: predniSONE 20 MG TABLET PO ONE (23:30)
[2021-08-13] MEDS ORDERED: predniSONE 20 MG TABLET ONE (23:41)
== END 2021-08-13 23:48 | disposition home or self-care (01) ==
LOC: ER 22:56
DX: J44.1 Chronic obstructive pulmonary disease with (acute) exacerbation (principal); F17.200 Nicotine dependence, unspecified, uncomplicated; Z60.2 Problems related to living alone; Z79.51 Long term (current) use of inhaled steroids; Z79.52 Long term (current) use of systemic steroids; Z79.899 Other long term (current) drug therapy
CPT/HCPCS: 94640; 99283; J7512

== ENCOUNTER 2021-09-09 04:35 | Emergency (ER) | payer MEDICAID ==
[~2021-09-09] VITALS: Ht 180.3 cm; Wt 99.8 kg
[~2021-09-09 04:35] MED LIST changes: +ALBU18HF2 INH; +PRED50TA PO
--- NOTE | 2021-09-09 04:40 | NUR ---
RT AT PT'S BEDSIDE
--- NOTE | 2021-09-09 04:45 | NUR ---
BIBSELF C/O SOB X 2-3 DAYS TOLERATING R/A AT 94%. Hx COPD. PT A/OX3.
[2021-09-09] MEDS ORDERED: ALBUTEROL FS 2.5 MG/3 ML VIAL.NEB ONE (04:49)
[2021-09-09] MEDS ORDERED: IPRATROPIUM NEB FS 0.5 MG/2.5 ML AMPUL.NEB ONE (04:49)
[2021-09-09] MEDS ORDERED: predniSONE 20 MG TABLET ONE (04:52)
[2021-09-09] MEDS ORDERED: IPRATROPIUM NEB FS 0.5 MG/2.5 ML AMPUL.NEB NEB ONE (05:00)
[2021-09-09] MEDS ORDERED: predniSONE 20 MG TABLET PO ONE (05:00)
[2021-09-09] MEDS ORDERED: ALBUTEROL FS 2.5 MG/3 ML VIAL.NEB NEB ONE (05:00)
[2021-09-09 05:15] VITALS: BP 141/70
[2021-09-09] MEDS ORDERED: PRED50TA PO (05:32)
[2021-09-09] MEDS ORDERED: IPRA12.9 INH (05:32)
[2021-09-09] MEDS ORDERED: ALBU18HF2 INH (05:32)
== END 2021-09-09 06:22 | disposition home or self-care (01) ==
LOC: ER 04:38
DX: J44.1 Chronic obstructive pulmonary disease with (acute) exacerbation (principal); F17.200 Nicotine dependence, unspecified, uncomplicated; Z60.2 Problems related to living alone; Z79.899 Other long term (current) drug therapy
CPT/HCPCS: 94644; 99285; J7512

== ENCOUNTER 2021-10-01 23:06 | Emergency (ER) | payer MEDICAID ==
[~2021-10-01] VITALS: Ht 188 cm; Wt 92.5 kg
[~2021-10-01 23:06] MED LIST changes: +IPRA12.9 INH
--- NOTE | 2021-10-01 23:33 | NUR ---
PT AOX4. BIBSELF C/O SOB X5 DAYS. REQUESTING BREATHING TREATMENT, HX OF COPD. NO ACUTE DISTRESS NOTED. PLACED ON MONITOR AND PULSE OX. AWAITING MD FOR EVAL AND ORDERS.
--- NOTE | 2021-10-01 23:34 | NUR ---
BIBS.TO ER BED 6. AAOX4. NOT IN RESP DISTRESS, BREATHING EVEN AND UNLABORED. AMBULATORY ON STEADY GAIT. CAME IN FOR SOB FOR THE PAST 3 DAYS. PT REPORT HX OF COPD. TALKING IN FULL SENTENCES AND SATTING @ 95% ON RA. AWAITING MD FOR EVAL
[2021-10-01] MEDS ORDERED: ALBUTEROL FS 2.5 MG/3 ML VIAL.NEB ONE (23:49)
[2021-10-01] MEDS ORDERED: IPRATROPIUM NEB FS 0.5 MG/2.5 ML AMPUL.NEB ONE (23:49)
--- NOTE | 2021-10-01 23:50 | NUR ---
RT AT BEDSIDE FOR BREATHING TREATMENT
[2021-10-02] MEDS ORDERED: Magnesium 1GM/D5W 100ML PREMIX 200 ML IV ONE (00:01)
[2021-10-02 00:27] LABS: BASOPHILS # (AUTO) 0.1 K/uL (0.0-0.2); BASOPHILS % (AUTO) 1.3 % (0.0-2.0); EOSINOPHILS % (AUTO) 5.9 % (0.0-6.0); HEMATOCRIT 45 % (39-51); HEMOGLOBIN 15.5 g/dL (13.5-17.5); LYMPHOCYTES # (AUTO) 1.4 K/uL (0.8-4.8); LYMPHOCYTES % (AUTO) 16.4 % (20.0-44.0); MEAN CORPUSCULAR HGB CONC 34 g/dl (31.0-36.0); MEAN CORPUSCULAR VOLUME 85 fL (80-96); MONOCYTES # (AUTO) 0.5 K/uL (0.1-1.30); MONOCYTES % (AUTO) 5.4 % (2.0-12.0); NEUTROPHILS # (AUTO) 6.1 K/uL (1.8-8.9); PLATELET COUNT (AUTO) 299 K/uL (150-450); RED BLOOD CELL COUNT(AUTO) 5.33 MIL/uL (4.5-6.0); WHITE BLOOD COUNT (AUTO) 8.6 K/uL (4.3-11.0)
[2021-10-02] MEDS: Magnesium 1GM/D5W 100ML PREMIX 100 ML IV SCH ×2 (00:35)
[2021-10-02 00:49] LABS: CALCIUM, SERUM 9.4 mg/dL (8.5-10.1); CARBON DIOXIDE 32 mmol/L (21-32); CHLORIDE 102 mmol/L (98-107); CREATININE 1.3 mg/dL (0.6-1.3); GLUCOSE 143 mg/dL (74-106); POTASSIUM 3.3 mmol/L (3.5-5.1); SODIUM SERUM 139 mmol/L (136-145); UREA NITROGEN, BLOOD 16 mg/dL (7-18)
[2021-10-02] MEDS ORDERED: methylPREDNISolone SOD SUCC 125 MG/2ML VIAL ONE (00:59)
[2021-10-02] MEDS ORDERED: methylPREDNISolone SOD SUCC 125 MG/2ML VIAL IV ONE (01:00)
[2021-10-02] MEDS ORDERED: POTASSIUM CHLORIDE 20 MEQ TAB.PRT.SR PO ONE ×2 (02:30→02:45)
[2021-10-02] MEDS ORDERED: ALBUTEROL FS 2.5 MG/3 ML VIAL.NEB ONE (02:41)
[2021-10-02] MEDS ORDERED: IPRATROPIUM NEB FS 0.5 MG/2.5 ML AMPUL.NEB ONE (02:41)
[2021-10-02] MEDS ORDERED: ALBUTEROL FS 2.5 MG/3 ML VIAL.NEB CONTNEB ONE ×2 (03:00)
[2021-10-02] MEDS ORDERED: IPRATROPIUM NEB FS 0.5 MG/2.5 ML AMPUL.NEB NEB ONE ×2 (03:00)
[2021-10-02] MEDS ORDERED: ALBU18HF2 INH (03:42)
[2021-10-02] MEDS ORDERED: PRED50TA PO (03:43)
--- NOTE | 2021-10-02 03:48 | NUR ---
IV removed. Catheter intact and site benign. Pressure and 4x4 applied to site. No bleeding noted.
--- NOTE | 2021-10-02 03:48 | NUR ---
Patient discharged to home in stable condition. Written and verbal after care instructions given. Patient verbalizes understanding of instruction.
[2021-10-02 03:49] VITALS: BP 134/76
== END 2021-10-02 03:55 | disposition home or self-care (01) ==
LOC: ER 23:08
DX: J44.1 Chronic obstructive pulmonary disease with (acute) exacerbation (principal); J98.01 Acute bronchospasm; R91.8 Other nonspecific abnormal finding of lung field; Z20.822 Contact with and (suspected) exposure to COVID-19; Z87.891 Personal history of nicotine dependence; I45.2 Bifascicular block
CPT/HCPCS: 36415; 71045; 80048; 83735; 84484 ×3; 85025; 87426; 93005 ×2; 94644; 94645; 96365; 96375; 99285; C9803; J2930; J3475

== ENCOUNTER 2021-10-25 22:01 | Emergency (ER) | payer MEDICAID ==
[~2021-10-25] VITALS: Ht 170.2 cm; Wt 90.7 kg
--- NOTE | 2021-10-25 22:20 | NUR ---
BIBSELF C/O SOB X 4 DAYS HX COPD, RAN OUT OF INHALER TODAY. PLACED COMFORTABLY IN BED. VITALS CHECKED.
[2021-10-25] MEDS ORDERED: DEXAMETHASONE SOD PHOSPHATE 10 MG/ML VIAL ONE (22:24)
[2021-10-25] MEDS ORDERED: ALBUTEROL FS 2.5 MG/0.5 ML VIAL.NEB NEB ONE (22:30)
[2021-10-25] MEDS ORDERED: DEXAMETHASONE SOD PHOSPHATE 4 MG/ML VIAL IM ONE (22:30)
--- NOTE | 2021-10-25 22:30 | NUR ---
RT AT BEDSIDE FOR BREATHING TX
[2021-10-25] MEDS ORDERED: ALBUTEROL FS 2.5 MG/0.5 ML VIAL.NEB ONE (22:31)
[2021-10-25] MEDS ORDERED: ALBU8.5H8 INH (23:13)
--- NOTE | 2021-10-25 23:25 | NUR ---
Patient discharged to home in stable condition. Written and verbal after care instructions given. Patient verbalizes understanding of instruction. Pt ambulatory with a steady gait
[2021-10-26 00:01] VITALS: BP 151/84
== END 2021-10-25 23:30 | disposition home or self-care (01) ==
LOC: ER 22:02
DX: J98.01 Acute bronchospasm (principal); J44.9 Chronic obstructive pulmonary disease, unspecified; F17.200 Nicotine dependence, unspecified, uncomplicated; Z60.2 Problems related to living alone; Z79.899 Other long term (current) drug therapy
CPT/HCPCS: 71045; 94640; 96372; 99283; J1100

== ENCOUNTER 2021-11-05 02:20 | Emergency (ER) | payer MEDICAID ==
[~2021-11-05] VITALS: Ht 180.3 cm; Wt 90.7 kg
--- NOTE | 2021-11-05 02:21 | NUR ---
BIBS FOR C/O COPD EXACERBATION. PLACED COMFORTABLY IN BED. VITALS CHECKED. ATTACHED TO MONITOR. +SOB, +WHEEZING ON BOTH LUNGFIELDS HEARD ROOM AIR PT SATS 91% . ATTACHED TO OXYGEN AT 2LPM VIA NC. SATURATING 94%.
[2021-11-05] MEDS ORDERED: predniSONE 20 MG TABLET PO ONE (02:30)
[2021-11-05] MEDS ORDERED: IPRATROPIUM NEB FS 0.5 MG/2.5 ML AMPUL.NEB NEB ONE (02:30)
[2021-11-05] MEDS ORDERED: ALBUTEROL FS 2.5 MG/3 ML VIAL.NEB NEB ONE ×2 (02:30→04:30)
[2021-11-05] MEDS ORDERED: predniSONE 20 MG TABLET ONE (02:35)
--- NOTE | 2021-11-05 02:39 | NUR ---
ORAL MEDS GIVEN
[2021-11-05] MEDS ORDERED: IPRATROPIUM NEB FS 0.5 MG/2.5 ML AMPUL.NEB ONE (02:41)
[2021-11-05] MEDS ORDERED: ALBUTEROL FS 2.5 MG/3 ML VIAL.NEB ONE ×2 (02:41→04:10)
[2021-11-05] MEDS ORDERED: PRED20TA PO (05:22)
[2021-11-05] MEDS ORDERED: ALBU18HF2 INH (05:56)
--- NOTE | 2021-11-05 06:01 | NUR ---
Patient discharged to home in stable condition. Written and verbal after care instructions given. Patient verbalizes understanding of instruction.
[2021-11-05 06:07] VITALS: BP 127/81
== END 2021-11-05 06:07 | disposition home or self-care (01) ==
LOC: ER 02:21
DX: J44.9 Chronic obstructive pulmonary disease, unspecified (principal); F17.200 Nicotine dependence, unspecified, uncomplicated; Z60.2 Problems related to living alone; Z79.899 Other long term (current) drug therapy
CPT/HCPCS: 71045; 94644; 94645; 94799; 99285; J7512

== ENCOUNTER 2021-12-10 22:34 | Emergency (ER) | payer MEDICAID ==
[~2021-12-10] VITALS: Ht 180.3 cm; Wt 92.5 kg
[~2021-12-10 22:34] MED LIST changes: +PRED20TA PO
--- NOTE | 2021-12-10 22:37 | NUR ---
BIBS FOR C/O COPD EXACERBATION SINCE YESTERDAY. RAN OUT OF INHALER. PT A/OX4. TOLERATING R/A AT 96% WITH SOB EXACERBATION. AMBULATORY WITH STEADY GAIT. CONNECTED PT TO POX AND MONITOR. SAFETY MEASURES IN PLACE.
[2021-12-10] MEDS ORDERED: predniSONE 20 MG TABLET ONE (23:03)
[2021-12-10] MEDS ORDERED: ALBUTEROL FS 2.5 MG/3 ML VIAL.NEB ONE (23:06)
[2021-12-10] MEDS ORDERED: IPRATROPIUM NEB FS 0.5 MG/2.5 ML AMPUL.NEB ONE (23:07)
--- NOTE | 2021-12-10 23:07 | NUR ---
RT AT PT'S BEDSIDE
[2021-12-10] MEDS ORDERED: IPRATROPIUM NEB FS 0.5 MG/2.5 ML AMPUL.NEB NEB ONE (23:30)
[2021-12-10] MEDS ORDERED: ALBUTEROL FS 2.5 MG/3 ML VIAL.NEB CONTNEB ONE (23:30)
[2021-12-10] MEDS ORDERED: predniSONE 20 MG TABLET PO ONE (23:30)
[2021-12-10] MEDS ORDERED: PRED20TA PO (23:57)
[2021-12-10] MEDS ORDERED: ALBU8.5H8 IH (23:57)
--- NOTE | 2021-12-11 00:02 | NUR ---
Patient discharged to home in stable condition; denies SOB. Written and verbal after care instructions given. Patient verbalizes understanding of instruction. PT ambulatory with a steady gait
[2021-12-11 00:03] VITALS: BP 127/78
== END 2021-12-11 00:04 | disposition home or self-care (01) ==
LOC: ER 22:36
DX: J98.01 Acute bronchospasm (principal); J44.9 Chronic obstructive pulmonary disease, unspecified; Z98.890 Other specified postprocedural states; Z87.891 Personal history of nicotine dependence; Z60.2 Problems related to living alone; Z79.899 Other long term (current) drug therapy
CPT/HCPCS: 99285; 94644; J7512

== ENCOUNTER 2022-01-07 22:29 | Emergency (ER) | payer MEDICAID ==
[~2022-01-07] VITALS: Ht 180.3 cm; Wt 90.7 kg
[~2022-01-07 22:29] MED LIST changes: +ALBU8.5H8 IH
--- NOTE | 2022-01-07 22:40 | NUR ---
BIBS FOR COPD EXACERBATION SINCE YESTERDAY. PT A/OX4. TOLERATING R/A AT 99%. CONNECTED PT TO POX AND MONITOR. SAFETY MEASURES IN PLACE.
[2022-01-07] MEDS: IPRATROPIUM NEB FS 0.5 MG/2.5 ML AMPUL.NEB NEB ONE (23:02)
[2022-01-07] MEDS: ALBUTEROL FS 2.5 MG/3 ML VIAL.NEB NEB ONE (23:02)
[2022-01-07] MEDS ORDERED: ALBUTEROL FS 2.5 MG/3 ML VIAL.NEB ONE (23:04)
[2022-01-07] MEDS ORDERED: IPRATROPIUM NEB FS 0.5 MG/2.5 ML AMPUL.NEB ONE (23:04)
--- NOTE | 2022-01-07 23:05 | NUR ---
RT AT PT'S BEDSIDE FOR BREATHING TX
--- NOTE | 2022-01-08 00:34 | NUR ---
HYDRAULIC BOOM OPERATOR AT PT'S BEDSIDE
--- NOTE | 2022-01-08 00:48 | NUR ---
S/P BREATHING TX PT SATTING 100% DENIES SOB
[2022-01-08] MEDS ORDERED: ALBU18HF2 IH (02:33)
[2022-01-08] MEDS ORDERED: PRED20TA PO (02:33)
--- NOTE | 2022-01-08 02:46 | NUR ---
Patient discharged to home in stable condition. Written and verbal after care instructions given. Patient verbalizes understanding of instruction. pt ambulatory with a steady gait
[2022-01-08 02:47] VITALS: BP 135/83
== END 2022-01-08 02:48 | disposition admitted as inpatient to this hospital (09) ==
LOC: ER 22:29
DX: J44.9 Chronic obstructive pulmonary disease, unspecified (principal); Z87.891 Personal history of nicotine dependence
CPT/HCPCS: 99285; 71045; 94644; J7120

== ENCOUNTER 2022-02-03 01:03 | Emergency (ER) | payer MEDICAID ==
[~2022-02-03] VITALS: Ht 180.3 cm; Wt 90.7 kg
[~2022-02-03 01:03] MED LIST changes: +ALBU18HF2 IH
--- NOTE | 2022-02-03 01:15 | NUR ---
BIBS C/O SOB X1 DAY RAN OUT OF INHALER. +COUGHING HX OF COPD. PATIENT IS AAOX4. + WHEEZING ON BILATERAL LUNGS. - CP DISTRESS. PLACED COMFORTABLY IN BED. VITALS CHECKED.
[2022-02-03] MEDS ORDERED: predniSONE 20 MG TABLET PO ONE (01:30)
[2022-02-03] MEDS ORDERED: ALBUTEROL FS 2.5 MG/3 ML VIAL.NEB NEB ONE (01:30)
[2022-02-03] MEDS ORDERED: IPRATROPIUM NEB FS 0.5 MG/2.5 ML AMPUL.NEB NEB ONE (01:30)
[2022-02-03] MEDS ORDERED: predniSONE 20 MG TABLET ONE (01:46)
--- NOTE | 2022-02-03 01:53 | NUR ---
SEEN BY DR BOYER AT TRIAGE
[2022-02-03] MEDS ORDERED: IPRATROPIUM NEB FS 0.5 MG/2.5 ML AMPUL.NEB ONE (01:54)
[2022-02-03] MEDS ORDERED: ALBUTEROL FS 2.5 MG/3 ML VIAL.NEB ONE (01:54)
--- NOTE | 2022-02-03 01:59 | NUR ---
LABEL DESIGNER AT BEDSIDE
[2022-02-03] MEDS ORDERED: PRED20TA PO (02:59)
[2022-02-03] MEDS ORDERED: ALBU18HF2 INH (02:59)
--- NOTE | 2022-02-03 03:10 | NUR ---
Patient discharged to home in stable condition. Written and verbal after care instructions given. Patient verbalizes understanding of instruction. Pt ambulatory with a steady gait
[2022-02-03 03:14] VITALS: BP 152/95
== END 2022-02-03 03:14 | disposition home or self-care (01) ==
LOC: ER 01:12
DX: J44.1 Chronic obstructive pulmonary disease with (acute) exacerbation (principal); F17.210 Nicotine dependence, cigarettes, uncomplicated; Z98.890 Other specified postprocedural states; Z79.899 Other long term (current) drug therapy
CPT/HCPCS: 99283; 71045; 99406; 94640; J7512

== ENCOUNTER → 2022-02-23 | Emergency (ER) | payer MEDICAID ==
[~2022-02-23] VITALS: Ht 165.1 cm; Wt 77.1 kg
[~2022-02-23] MED LIST changes: +ALBUTEROL FS 2.5 MG/3 ML VIAL.NEB NEB ONE; +ALBUTEROL FS 2.5 MG/3 ML VIAL.NEB ONE; +BUDE10.22 INH; +IPRATROPIUM NEB FS 0.5 MG/2.5 ML AMPUL.NEB NEB ONE; +IPRATROPIUM NEB FS 0.5 MG/2.5 ML AMPUL.NEB ONE; +IV NS 0.9% 500 ML IV ONE; +POTASSIUM CHLORIDE 20 MEQ TAB.PRT.SR PO ONE; +methylPREDNISolone SOD SUCC 125 MG/2ML VIAL IV ONE; +methylPREDNISolone SOD SUCC 125 MG/2ML VIAL ONE
[2022-02-23 14:05] LABS: BASOPHILS # (AUTO) 0.1 K/uL (0.0-0.2); EOSINOPHILS % (AUTO) 13.1 % (0.0-6.0); HEMATOCRIT 46 % (39-51); HEMOGLOBIN 15.1 g/dL (13.5-17.5); LYMPHOCYTES # (AUTO) 1.5 K/uL (0.8-4.8); LYMPHOCYTES % (AUTO) 18.5 % (20.0-44.0); MEAN CORPUSCULAR HGB CONC 33 g/dl (31.0-36.0); MEAN CORPUSCULAR VOLUME 88 fL (80-96); MONOCYTES # (AUTO) 0.7 K/uL (0.1-1.30); MONOCYTES % (AUTO) 8.7 % (2.0-12.0); NEUTROPHILS # (AUTO) 4.6 K/uL (1.8-8.9); NEUTROPHILS % (AUTO) 58.7 % (43.0-81.0); PLATELET COUNT (AUTO) 312 K/uL (150-450); RED BLOOD CELL COUNT(AUTO) 5.29 MIL/uL (4.5-6.0); WHITE BLOOD COUNT (AUTO) 7.9 K/uL (4.3-11.0)
[2022-02-23 14:15] LABS: CALCIUM, SERUM 8.9 mg/dL (8.5-10.1); CREATININE 0.9 mg/dL (0.6-1.3); POTASSIUM 3.2 mmol/L (3.5-5.1)
[2022-02-23 19:30] VITALS: BP 131/77
--- NOTE | 2022-02-23 19:30 | NUR ---
PATIENT RESTING IN BED, VSS, NO ACUTE DISTRESS NOTED. WILL CONTINUE TO MONITOR.
== END | disposition home or self-care (01) ==
LOC: ER 12:19
DX: J44.1 Chronic obstructive pulmonary disease with (acute) exacerbation (principal); R06.02 Shortness of breath; J44.9 Chronic obstructive pulmonary disease, unspecified; Z60.2 Problems related to living alone; Z79.51 Long term (current) use of inhaled steroids; Z79.52 Long term (current) use of systemic steroids; Z79.899 Other long term (current) drug therapy
CPT/HCPCS: 99285; 96374; 71045; 96361; 85025; 80048; 36415; 94640 ×2; J2930; J7030

== ENCOUNTER 2022-08-26 22:58 | Emergency (ER) | payer MEDICAID ==
[~2022-08-26] VITALS: Ht 180.3 cm; Wt 92.5 kg
[~2022-08-26 22:58] MED LIST changes: -ALBUTEROL FS 2.5 MG/3 ML VIAL.NEB NEB ONE; -ALBUTEROL FS 2.5 MG/3 ML VIAL.NEB ONE; -IPRATROPIUM NEB FS 0.5 MG/2.5 ML AMPUL.NEB NEB ONE; -IPRATROPIUM NEB FS 0.5 MG/2.5 ML AMPUL.NEB ONE; -IV NS 0.9% 500 ML IV ONE; -POTASSIUM CHLORIDE 20 MEQ TAB.PRT.SR PO ONE; -methylPREDNISolone SOD SUCC 125 MG/2ML VIAL IV ONE; -methylPREDNISolone SOD SUCC 125 MG/2ML VIAL ONE
[2022-08-27 00:04] VITALS: BP 141/94
--- NOTE | 2022-08-27 00:04 | NUR ---
BIBS. FROM HOME C/O SOB AND MEDICATION REFILL ALBUTEROL AND SYMBICORT. PT TOLERATING R/A AT 95%
[2022-08-27] MEDS ORDERED: predniSONE 20 MG TABLET PO ONE (01:00)
[2022-08-27] MEDS ORDERED: IPRATROPIUM NEB FS 0.5 MG/2.5 ML AMPUL.NEB NEB ONE (01:00)
[2022-08-27] MEDS ORDERED: ALBUTEROL FS 2.5 MG/3 ML VIAL.NEB NEB ONE (01:00)
[2022-08-27] MEDS ORDERED: predniSONE 20 MG TABLET ONE (01:11)
[2022-08-27] MEDS ORDERED: IPRATROPIUM NEB FS 0.5 MG/2.5 ML AMPUL.NEB ONE (01:56)
[2022-08-27] MEDS ORDERED: ALBUTEROL FS 2.5 MG/0.5 ML VIAL.NEB ONE (01:56)
--- NOTE | 2022-08-27 02:02 | NUR ---
RT AT PT'S BEDSIDE FOR BREATHING TX
[2022-08-27] MEDS ORDERED: PRED20TA PO (04:02)
[2022-08-27] MEDS ORDERED: ALBU18HF2 INH (04:02)
--- NOTE | 2022-08-27 04:09 | NUR ---
Patient discharged to home in stable condition. RX Written and verbal after care instructions given. Patient verbalizes understanding of instruction.
== END 2022-08-27 04:13 | disposition home or self-care (01) ==
LOC: ER 23:00
DX: J44.1 Chronic obstructive pulmonary disease with (acute) exacerbation (principal); F17.200 Nicotine dependence, unspecified, uncomplicated; Z60.2 Problems related to living alone; Z98.890 Other specified postprocedural states; Z79.899 Other long term (current) drug therapy
CPT/HCPCS: 99285; 94644; J7512

== ENCOUNTER 2022-09-16 21:08 | Emergency (ER) | payer MEDICAID ==
[~2022-09-16] VITALS: Ht 180.3 cm; Wt 88.5 kg
--- NOTE | 2022-09-16 21:30 | NUR ---
BIBS C/O SOB X3DAYS "WORSE TODAY" HX OF COPD. PT AAOX4, PLACED COMFORTABLY IN BED, VITALS CHECKED.
--- NOTE | 2022-09-16 21:35 | NUR ---
XR AT BEDSIDE
[2022-09-16] MEDS ORDERED: methylPREDNISolone SOD SUCC 125 MG/2ML VIAL ONE (21:38)
[2022-09-16] MEDS ORDERED: ALBUTEROL FS 2.5 MG/3 ML VIAL.NEB ONE (21:42)
[2022-09-16] MEDS ORDERED: IPRATROPIUM NEB FS 0.5 MG/2.5 ML AMPUL.NEB ONE (21:42)
--- NOTE | 2022-09-16 21:42 | NUR ---
RT AT PT'S BEDSIDE FOR BREATHING TX
--- NOTE | 2022-09-16 21:43 | NUR ---
LAC #20G S/L BLOOD COLLECTED AND SENT TO LAB
--- NOTE | 2022-09-16 21:52 | NUR ---
COVID SWAB DONE AND SENT TO LAB
[2022-09-16] MEDS ORDERED: IPRATROPIUM NEB FS 0.5 MG/2.5 ML AMPUL.NEB NEB ONE (22:00)
[2022-09-16] MEDS ORDERED: ALBUTEROL FS 2.5 MG/3 ML VIAL.NEB NEB ONE (22:00)
[2022-09-16] MEDS ORDERED: methylPREDNISolone SOD SUCC 125 MG/2ML VIAL IV ONE (22:00)
[2022-09-16 22:03] LABS: BASOPHILS # (AUTO) 0.1 K/uL (0.0-0.2); BASOPHILS % (AUTO) 0.9 % (0.0-2.0); EOSINOPHILS % (AUTO) 4.6 % (0.0-6.0); HEMATOCRIT 50 % (39-51); HEMOGLOBIN 16.3 g/dL (13.5-17.5); LYMPHOCYTES # (AUTO) 0.9 K/uL (0.8-4.8); LYMPHOCYTES % (AUTO) 9.4 % (20.0-44.0); MEAN CORPUSCULAR HGB CONC 33 g/dl (31.0-36.0); MEAN CORPUSCULAR VOLUME 88 fL (80-96); MONOCYTES # (AUTO) 0.5 K/uL (0.1-1.30); MONOCYTES % (AUTO) 5.2 % (2.0-12.0); NEUTROPHILS # (AUTO) 7.4 K/uL (1.8-8.9); NEUTROPHILS % (AUTO) 79.9 % (43.0-81.0); PLATELET COUNT (AUTO) 316 K/uL (150-450); RED BLOOD CELL COUNT(AUTO) 5.71 MIL/uL (4.5-6.0); WHITE BLOOD COUNT (AUTO) 9.3 K/uL (4.3-11.0)
--- NOTE | 2022-09-16 22:10 | NUR ---
RT AT BEDSIDE FOR BREATHING TX
[2022-09-16 22:13] LABS: CALCIUM, SERUM 9.8 mg/dL (8.5-10.1); CARBON DIOXIDE 28 mmol/L (21-32); CHLORIDE 105 mmol/L (98-107); GLUCOSE 111 mg/dL (74-106); POTASSIUM 3.8 mmol/L (3.5-5.1); SODIUM SERUM 142 mmol/L (136-145); UREA NITROGEN, BLOOD 13 mg/dL (7-18)
[2022-09-16] MEDS ORDERED: ALBUTEROL FS 2.5 MG/0.5 ML VIAL.NEB ONE (22:13)
[2022-09-16 22:26] LABS: ALANINE AMINOTRANSFERASE 27 U/L (12-78); ALBUMIN 3.9 g/dL (3.4-5.0); ALKALINE PHOSPHATASE 83 U/L (46-116); ASPARTATE AMINOTRANSFERASE 19 U/L (15-37); BILIRUBIN,DIRECT 0.1 mg/dL (0.0-0.2); BILIRUBIN,TOTAL 0.7 mg/dL (0.2-1.0); TOTAL PROTEIN, SERUM 7.7 g/dL (6.4-8.2)
[2022-09-16] MEDS ORDERED: ALBUTEROL FS 2.5 MG/0.5 ML VIAL.NEB NEB ONE (22:30)
[2022-09-16] MEDS ORDERED: ALBU18HF2 INH (23:44)
[2022-09-16] MEDS ORDERED: PRED20TA PO (23:44)
[2022-09-16 23:52] VITALS: BP 145/80
--- NOTE | 2022-09-16 23:52 | NUR ---
Patient discharged to home in stable condition. Written and verbal after care instructions given. Patient verbalizes understanding of instruction.
== END 2022-09-16 23:53 | disposition home or self-care (01) ==
LOC: ER 21:12
DX: J44.1 Chronic obstructive pulmonary disease with (acute) exacerbation (principal); F17.200 Nicotine dependence, unspecified, uncomplicated; Z98.890 Other specified postprocedural states; Z60.2 Problems related to living alone; Z79.899 Other long term (current) drug therapy; Z20.822 Contact with and (suspected) exposure to COVID-19
CPT/HCPCS: 99285; 71045; 87426; 93005; 85025; 80048; 80076; 36415; 84484 ×2; 83880; 94799; 94640 ×3; J2930; C9803

== ENCOUNTER 2022-10-04 23:33 | Emergency (ER) | payer MEDICAID ==
[~2022-10-04] VITALS: Ht 180.3 cm; Wt 92.5 kg
--- NOTE | 2022-10-04 23:50 | NUR ---
sob x 3days, hx sob, ran out of inhaler Rx, also requesting refill. Oxygen saturation 95% on RA.
[2022-10-05] MEDS ORDERED: ALBUTEROL FS 2.5 MG/0.5 ML VIAL.NEB ONE ×2 (00:05→00:31)
--- NOTE | 2022-10-05 00:14 | NUR ---
Breathing treatment given by RT at bedside.
[2022-10-05] MEDS ORDERED: ALBUTEROL FS 2.5 MG/0.5 ML VIAL.NEB NEB ONE ×2 (00:30)
[2022-10-05] MEDS ORDERED: ALBU8.5H8 INH (01:04)
[2022-10-05 01:30] VITALS: BP 126/79
--- NOTE | 2022-10-05 01:32 | NUR ---
Patient discharged to home in stable condition. Written and verbal after care instructions given. Patient verbalizes understanding of instruction.
[2022-10-09] MEDS ORDERED: LEVO500T90 PO (14:19)
[2022-10-09] MEDS ORDERED: PRED20TA PO (14:19)
== END 2022-10-05 01:33 | disposition home or self-care (01) ==
LOC: ER 23:36
DX: J98.01 Acute bronchospasm (principal); J44.9 Chronic obstructive pulmonary disease, unspecified; Z98.890 Other specified postprocedural states; F17.200 Nicotine dependence, unspecified, uncomplicated; Z60.2 Problems related to living alone; Z79.899 Other long term (current) drug therapy

== ENCOUNTER 2022-10-07 15:55 | Inpatient (IN) | payer MEDICAID ==
[~2022-10-07] VITALS: Ht 172.7 cm; Wt 83.9 kg
--- NOTE | 2022-10-07 16:17 | NUR ---
PT A/OX4 BREATHING IS LABORED, ENDORSES DYSPNEA, WHEEZING NOTED BILATERALLY ON AUSCULTATION. O2SAT 95% ON ROOM AIR. Hx OF COPD X2 YEARS. PT STATES HE HAS TAKEN HIS INHALER BUT IT DID NOT HELP HIM. VITALS ARE STABLE CONNECTED TO BEDSIDE ECG, BP, RR, O2 SAT PROB. PLACE IN HIGH FOWLERS SIDE RAILS UP BED LOCKED IN LOWEST POSTION.
[2022-10-07] MEDS ORDERED: methylPREDNISolone SOD SUCC 125 MG/2ML VIAL IV ONE (16:30)
[2022-10-07] MEDS ORDERED: IPRATROPIUM NEB FS 0.5 MG/2.5 ML AMPUL.NEB NEB ONE ×2 (16:30→19:30)
[2022-10-07] MEDS ORDERED: ALBUTEROL FS 2.5 MG/3 ML VIAL.NEB NEB ONE ×3 (16:30→19:30)
[2022-10-07] MEDS ORDERED: methylPREDNISolone SOD SUCC 125 MG/2ML VIAL ONE (16:36)
[2022-10-07 16:45] LABS: CALCIUM, SERUM 9.3 mg/dL (8.5-10.1); CARBON DIOXIDE 28 mmol/L (21-32); CHLORIDE 106 mmol/L (98-107); CREATININE 0.9 mg/dL (0.6-1.3); GLUCOSE 137 mg/dL (74-106); POTASSIUM 3.8 mmol/L (3.5-5.1); SODIUM SERUM 141 mmol/L (136-145); UREA NITROGEN, BLOOD 14 mg/dL (7-18)
[2022-10-07 16:58] LABS: ALANINE AMINOTRANSFERASE 26 U/L (12-78); ALBUMIN 3.4 g/dL (3.4-5.0); ALKALINE PHOSPHATASE 81 U/L (46-116); ASPARTATE AMINOTRANSFERASE 14 U/L (15-37); BILIRUBIN,DIRECT 0.1 mg/dL (0.0-0.2); BILIRUBIN,TOTAL 0.4 mg/dL (0.2-1.0)
[2022-10-07 17:04] LABS: BASOPHILS # (AUTO) 0.1 K/uL (0.0-0.2); HEMATOCRIT 48 % (39-51); HEMOGLOBIN 15.5 g/dL (13.5-17.5); LYMPHOCYTES # (AUTO) 0.8 K/uL (0.8-4.8); LYMPHOCYTES % (AUTO) 10.4 % (20.0-44.0); MEAN CORPUSCULAR HGB CONC 33 g/dl (31.0-36.0); MEAN CORPUSCULAR VOLUME 88 fL (80-96); MONOCYTES # (AUTO) 0.4 K/uL (0.1-1.30); MONOCYTES % (AUTO) 5.8 % (2.0-12.0); NEUTROPHILS # (AUTO) 5.7 K/uL (1.8-8.9); NEUTROPHILS % (AUTO) 73.8 % (43.0-81.0); PLATELET COUNT (AUTO) 330 K/uL (150-450); RED BLOOD CELL COUNT(AUTO) 5.43 MIL/uL (4.5-6.0); WHITE BLOOD COUNT (AUTO) 7.8 K/uL (4.3-11.0)
[2022-10-07] MEDS ORDERED: IPRATROPIUM NEB FS 0.5 MG/2.5 ML AMPUL.NEB ONE ×2 (17:36→19:16)
[2022-10-07] MEDS ORDERED: ALBUTEROL FS 2.5 MG/3 ML VIAL.NEB ONE ×3 (17:36→19:16)
--- NOTE | 2022-10-07 20:19 | NUR ---
REPORT GIVEN TO JUJU Donovan RN FOR JESSICA
[2022-10-07] MEDS ORDERED: ACETAMINOPHEN 325 MG TABLET PO PRN (20:30)
[2022-10-07] MEDS ORDERED: ZOLPIDEM TARTRATE 5 MG TABLET PO PRN (20:30)
[2022-10-07] MEDS ORDERED: ONDANSETRON HCL/PF 4 MG/2 ML VIAL IVP PRN (20:30)
[2022-10-07] MEDS ORDERED: MAG HYDROX/AL HYDROX/SIMETH 30 ML UDC PO PRN (20:30)
[2022-10-07] MEDS ORDERED: MAGNESIUM HYDROXIDE 30 ML UDC PO PRN (20:30)
[2022-10-07] MEDS ORDERED: DEXTROSE 50%-WATER 50 ML DISP.SYRIN IV PRN (20:30)
[2022-10-07] MEDS ORDERED: Z GUARD REMEDY 4 OZ OINT TP PRN (20:30)
--- NOTE | 2022-10-07 21:08 | NUR ---
PT TRANSFERRED TO 304-1 VIA ACLS PROTOCOL. VSS. ALL BELONGONGS WITH PT.
--- NOTE | 2022-10-07 21:30 | NUR ---
REPAIR SERVICER ADMITTING NOTE PATIENT WAS TRANSFERRED FROM ER TO 304 - 1 AT 2105H; PATIENT IS A/O X 4, AMBULATORY, ABLE TO MAKE NEEDS KNOWN; STABLE ON 2LPM O2 VIA NASAL CANNULA, BREATHING EVENLY AND NO S/S OF DISTRESS NOTED; WITH IV ACCESS AT RAC G#20 SALINE LOCK; ORIENTED TO STAFF AND ROOM; VITAL SIGNS TAKEN AND RECORDED; PATIENT'S BELONGINGS ACCOUNTED FOR; HOOKED TO TELE MONITORING CURRENTLY READING SINUS RHYTHM 80S BPM; ENCOURAGED VERBALIZATION OF NEEDS; SAFETY MEASURES IMPLEMENTED, BED LOCKED IN LOWEST POSITION, SIDE RAILS UP X 3, CALL LIGHT AND TABLE WITHIN REACH; WILL CONTINUE TO MONITOR THROUGHOUT SHIFT
[2022-10-07] MEDS ORDERED: LEVOFLOXACIN 500 MG /D5W 100ML 100 ML IV ONE (21:45)
[2022-10-07] MEDS ORDERED: PANTOPRAZOLE 40 MG VIAL IV SCH (22:00)
[2022-10-07] MEDS ORDERED: LEVOFLOXACIN 500 MG /D5W 100ML 500 MG in PREMIX 1 EA IV SCH (22:00)
[2022-10-07] MEDS: BLOOD SUGAR DIAGNOSTIC 1 EACH STRIP IN SCH (22:50)
[2022-10-07] MEDS: INSULIN REGULAR, HUMAN 100 UNIT/ML 3 ML VIAL SQ PRN (22:53)
[2022-10-08] VITALS: BP 141/91
[2022-10-08] MEDS: methylPREDNISolone SOD SUCC 40 MG/ML VIAL IV SCH ×3 (00:27→16:01)
[2022-10-08] MEDS: ALBUTEROL FS 2.5 MG/3 ML VIAL.NEB NEB PRN ×2 (00:43→07:58)
[2022-10-08] MEDS: IPRATROPIUM NEB FS 0.5 MG/2.5 ML AMPUL.NEB NEB PRN ×2 (00:43→07:57)
--- NOTE | 2022-10-08 01:00 | NUR ---
AUTOMATIC LATHE OPERATOR NOTE PATIENT VERBALIZED HAVING SHORTNESS OF BREATH AND WITH PRESENCE OF LABORED BREATHING; ELEVATED HEAD OF BED; CHECKED VITAL SIGNS, SATURATING TO 96-98% ON 2LPM O2 VIA NC; RT NOTIFIED; ADMINISTERED DUE DOSE OF SOLU MEDROL ORDERED; BREATHING TREATMENT GIVEN BY RT; PATIENT TOLERATED WELL AND VERBALIZED FEELING BETTER; WILL CONTINUE TO MONITOR
[2022-10-08 04:00] VITALS: BP 151/93
[2022-10-08 05:26] LABS: ABG BASE EXCESS -1.2 mmol/L; ABG OXYGEN SATURATION 91.5 % (92.0-98.5); ABG PCO2 39.3 mmHg (35.0-45.0); ABG PH 7.393 (7.350-7.450); ABG PO2 60.7 mmHg (75.0-100.0); AaDO2 70.9 mmHg; COHb 0.6 % (0.5-1.5); MetHb 0.4 % (0.0-1.5); O2Hb 90.6 % (94.0-97.0); SITE, ABG Left Radial; VENT MODE, BG 1 L NASAL CANNULA
[2022-10-08 05:45] LABS: BASOPHILS % (AUTO) 0.1 % (0.0-2.0); HEMATOCRIT 47 % (39-51); HEMOGLOBIN 15.6 g/dL (13.5-17.5); LYMPHOCYTES # (AUTO) 0.4 K/uL (0.8-4.8); MEAN CORPUSCULAR HGB CONC 33 g/dl (31.0-36.0); MEAN CORPUSCULAR VOLUME 88 fL (80-96); MONOCYTES # (AUTO) 0.1 K/uL (0.1-1.30); MONOCYTES % (AUTO) 0.6 % (2.0-12.0); NEUTROPHILS # (AUTO) 12.6 K/uL (1.8-8.9); NEUTROPHILS % (AUTO) 96.3 % (43.0-81.0); PLATELET COUNT (AUTO) 351 K/uL (150-450); RED BLOOD CELL COUNT(AUTO) 5.37 MIL/uL (4.5-6.0); WHITE BLOOD COUNT (AUTO) 13.1 K/uL (4.3-11.0)
[2022-10-08 06:03] LABS: CALCIUM, SERUM 9.1 mg/dL (8.5-10.1); CREATININE 0.9 mg/dL (0.6-1.3); MAGNESIUM 2.1 mg/dL (1.8-2.4); PHOSPHORUS 2.4 mg/dL (2.5-4.9)
[2022-10-08] MEDS ORDERED: LEVOFLOXACIN 500 MG /D5W 100ML 500 MG in PREMIX 1 EA IV SCH ×2 (06:13→22:00)
[2022-10-08] MEDS: BLOOD SUGAR DIAGNOSTIC 1 EACH STRIP IN SCH ×4 (06:30→22:43)
[2022-10-08] MEDS: INSULIN REGULAR, HUMAN 100 UNIT/ML 3 ML VIAL SQ PRN ×4 (06:32→22:43)
--- NOTE | 2022-10-08 06:47 | NUR ---
GAS BURNER OPERATOR CLOSING NOTE PATIENT ASLEEP IN BED, EASILY AWAKEN, A/O X 4, AMBULATORY, ABLE TO MAKE NEEDS KNOWN; STABLE ON 1LPM O2 VIA NASAL CANNULA, BREATHING EVENLY AND NO S/S OF DISTRESS NOTED; WITH IV ACCESS AT RAC G#20 SALINE LOCK; HOOKED TO TELE MONITORING CURRENTLY READING SINUS RHYTHM 80S BPM; ADMINISTERED MEDICATIONS PRESCRIBED; PATIENT'S NEEDS ATTENDED; MONITORED PATIENT ACCORDINGLY; NO COMPLAINTS OF PAIN AND DISCOMFORT AT THIS TIME; SAFETY MEASURES IMPLEMENTED, BED LOCKED IN LOWEST POSITION, SIDE RAILS UP X 3, CALL LIGHT AND TABLE WITHIN REACH; HOB ELEVATED; WILL ENDORSE TO AM NURSE FOR JESSICA.
--- NOTE | 2022-10-08 07:15 | NUR ---
FRONT DESK REPRESENTATIVE OPENING NOTES RECEIVED PATIENT LYING IN BED, SLEEPING, AROUSABLE TO VERBAL STIMULI, PATIENT IS A/OX4, ABLE TO MAKE HIS NEEDS KNOWN, APPEARS TO BE COMFORTABLE, DENIES ANY PAIN OR DISCOMFORT, PATIENT IS ON O2 AT 1 LPM VIA NASAL CANNULA, BREATHING EVEN AND UNLABORED, NO DISTRESS OR SOB NOTED, IV ACCESS ON RAC #20 SL, INTACT, PATENT AND FLUSHING WELL, PATIENT WITH EXTERNAL AUDIO ENGINEER WITH CURRENT READING OF SR 85, NO CARDIAC DISTRESS NOTED, FALL AND SAFETY IN PLACE, BED ALARM ON, BED IN LOW AND LOCK POSITION, CALL LIGHT AND TABLE WITHIN EASY REACH, SIDE RAILS UP X2, WILL CONTINUE TO MONITOR.
[2022-10-08 08:00] VITALS: BP_SYST 143; BP_DIAS 101; BP_DIAS 97
[2022-10-08] MEDS: ALBUTEROL FS 2.5 MG/3 ML VIAL.NEB NEB SCH ×3 (09:30→20:43)
[2022-10-08] MEDS: IPRATROPIUM NEB FS 0.5 MG/2.5 ML AMPUL.NEB NEB SCH ×3 (09:30→20:43)
[2022-10-08] MEDS ORDERED: BUDE10.27 INH (10:30)
[2022-10-08] MEDS ORDERED: CETI-355 PO (10:30)
[2022-10-08] MEDS ORDERED: ALBU8.5H8 IH (10:30)
--- NOTE | 2022-10-08 10:33 | NUR ---
TREATMENT GIVEN AN HOUR BEFORE THE NEW TX TIME. RN NOTIFIED. Addendum: 10/08/22 at 1035 by MALCOM BLOOM RT Amended: Links added.
--- NOTE | 2022-10-08 13:37 | NUR ---
PATIENT INSISTED THAT HE DOES NOT WANT TO PUT O2 ON ANYMORE. Addendum: 10/08/22 at 1338 by MALCOM BLOOM RT Amended: Links added.
[2022-10-08] MEDS ORDERED: K PHOS NEUTRAL 250 MG TABLET PO ONE (16:00)
[2022-10-08 16:02] VITALS: BP 141/89
--- NOTE | 2022-10-08 17:34 | NUR ---
RN NOTES NOTIFIED KADE BLAKE REGARDING VTE SCORE OF 3, ORDERED TO ADMINISTER LOVENOX 40MG SQ Q 24 DAILY.
[2022-10-08] MEDS ORDERED: ENOXAPARIN SODIUM 40 MG/0.4 ML DISP.SYRIN SQ SCH (18:00)
--- NOTE | 2022-10-08 18:35 | NUR ---
SOFTWARE TEST ENGINEER CLOSING NOTES PATIENT IS LYING IN BED, AWAKE, PATIENT IS A/OX4, ABLE TO MAKE HIS NEEDS KNOWN, APPEARS TO BE COMFORTABLE, DENIES ANY PAIN OR DISCOMFORT, PATIENT IS ON O2 AT 1 LPM VIA NASAL CANNULA, BREATHING EVEN AND UNLABORED, NO DISTRESS OR SOB NOTED, IV ACCESS ON RAC #20 SL, INTACT, PATENT AND FLUSHING WELL, PATIENT WITH EXTERNAL TERMITE CONTROL REPRESENTATIVE WITH CURRENT READING OF SR 85, NO CARDIAC DISTRESS NOTED, FALL AND SAFETY IN PLACE AND MAINTAINED AT ALL TIME, BED ALARM ON, BED IN LOW AND LOCK POSITION, CALL LIGHT AND TABLE WITHIN EASY REACH, SIDE RAILS UP X2, SCHEDULED MEDICATIONS ADMINISTERED, ALL NEEDS ATTENDED AND ANTICIPATED, WILL ENDORSED POC TO FINANCIAL SERVICES OFFICER NURSE.
--- NOTE | 2022-10-08 19:30 | NUR ---
VENUE COORDINATOR NOTES RECEIVED ON BED SLEEPING,AROUSABLE TO VERBAL STIMULI,BREATHING REGULAR,NOT IN ANY FORM OF DISTRESS.SALINE LOCK RIGHT AC INTACT AND PATENT.DVT PUMP IN USED FOR DVT PROPHYLAXIS.SR ON TELE MONITOR.WILL CONTINUE TO MONITOR STATUS.CALL LIGHT IN REACH,NEEDS ANTICIPATED.
[2022-10-08 19:52] VITALS: BP 156/85
[2022-10-08 20:01] VITALS: BP 156/85
--- NOTE | 2022-10-08 20:50 | NUR ---
CONTACT ACID PLANT OPERATOR HELPER NOTES AWAKE,AMBULATE TO THE RESTROOM,WENT BACK TO BED HYPERVENTILATING.OFFERED OXYGEN BUT REFUSED.RT WA PAGE STAT TO ADMINISTER SCHEDULED HAND HELD BREATHING TREATMENT.
--- NOTE | 2022-10-08 21:00 | NUR ---
MECHANIC FOREMAN NOTES RT AT BEDSIDE ADMINISTERING BREATHING TREATMENT.SENSITIVE TO PERFUME,NURSE SWITCH BY CHARGE NURSE.REPORT GIVEN TO YENIFER COOL
--- NOTE | 2022-10-08 21:01 | NUR ---
RN NOTES: RECEIVED PT AND REPORT FROM YENIFER MARIE. PT IN BED AWAKE, WATCHING TV AT THIS TIME. A/O X4, ABLE TO MAKE NEEDS KNOWN. ON RA WITH NO SOB OR LABORED BREATHING. CURRENTLY UNDERGOING BREATHING TX. DENIES PAIN AT THIS TIME. ON SPIKE MACHINE OPERATOR READING SR. IV ACCESS RAC #20G SL, INTACT, PATENT, FLUSHING WELL. WILL CONTINUE TO MONITOR AND ASSIST.
[2022-10-08] MEDS ORDERED: PANTOPRAZOLE 40 MG TABLET.DR PO SCH (22:00)
--- NOTE | 2022-10-08 22:25 | NUR ---
RN NOTE: PT REQUESTING SLEEPING MEDICATION, ASMITA VILLANUEVA ORDERED AMBIEN 5 MG QHS PRN. WILL ADMINISTER ORDERED.
--- NOTE | 2022-10-08 22:45 | NUR ---
RN NOTE: PT BLOOD SUGAR 85. PT VERBALIZED FEELING OKAY. NO LETHARGY NOTED, SKIN COOL TO TOUCH. PT REFUSES TO WEAR GOWN AND INSISTS ON HAVING TORSO UNCOVERED. GIVEN 2 ORANGE JUICE A PRECAUTION.
[2022-10-08] MEDS ORDERED: ZOLPIDEM TARTRATE 5 MG TABLET PO PRN (23:35)
[2022-10-09] MEDS: methylPREDNISolone SOD SUCC 40 MG/ML VIAL IV SCH ×3 (00:36→08:31)
[2022-10-09 01:04] VITALS: BP 148/106
--- NOTE | 2022-10-09 01:50 | NUR ---
RN NOTE: IV ACCESS RAC #20G INFILTRATED. NEW LINE INSERTED #22G ON LFA, FLUSHING WELL.
[2022-10-09] MEDS: ALBUTEROL FS 2.5 MG/3 ML VIAL.NEB NEB SCH ×3 (02:03→14:27)
[2022-10-09] MEDS: IPRATROPIUM NEB FS 0.5 MG/2.5 ML AMPUL.NEB NEB SCH ×3 (02:03→14:27)
[2022-10-09 04:19] VITALS: BP 162/102
--- NOTE | 2022-10-09 04:53 | NUR ---
RN NOTE: BP 162/102. MACHINE OPERATOR REPLANTER SUSANNE VILLANUEVA NOTIFIED, ORDERED CLONIDINE 0.1 MG Q8HR PRN FOR SBP >155.
[2022-10-09] MEDS ORDERED: CLONIDINE HCL 0.1 MG TABLET PO PRN (05:00)
[2022-10-09 05:45] LABS: BASOPHILS % (AUTO) 0.1 % (0.0-2.0); HEMATOCRIT 47 % (39-51); HEMOGLOBIN 15.6 g/dL (13.5-17.5); LYMPHOCYTES # (AUTO) 0.5 K/uL (0.8-4.8); LYMPHOCYTES % (AUTO) 2.4 % (20.0-44.0); MEAN CORPUSCULAR HGB CONC 33 g/dl (31.0-36.0); MEAN CORPUSCULAR VOLUME 88 fL (80-96); MONOCYTES # (AUTO) 0.5 K/uL (0.1-1.30); MONOCYTES % (AUTO) 2.4 % (2.0-12.0); NEUTROPHILS % (AUTO) 95.1 % (43.0-81.0); PLATELET COUNT (AUTO) 363 K/uL (150-450); RED BLOOD CELL COUNT(AUTO) 5.35 MIL/uL (4.5-6.0)
[2022-10-09 05:58] LABS: CALCIUM, SERUM 9.2 mg/dL (8.5-10.1); CREATININE 0.9 mg/dL (0.6-1.3); MAGNESIUM 2.4 mg/dL (1.8-2.4); PHOSPHORUS 3.3 mg/dL (2.5-4.9); POTASSIUM 4.1 mmol/L (3.5-5.1)
[2022-10-09 06:30] VITALS: BP 130/92
--- NOTE | 2022-10-09 06:32 | NUR ---
RN NOTE: BP 130/92
[2022-10-09] MEDS: BLOOD SUGAR DIAGNOSTIC 1 EACH STRIP IN SCH ×2 (06:33→11:16)
[2022-10-09] MEDS: INSULIN REGULAR, HUMAN 100 UNIT/ML 3 ML VIAL SQ PRN ×2 (06:36→11:18)
--- NOTE | 2022-10-09 07:15 | NUR ---
TERMITE EXTERMINATOR CLOSING NOTES PT SLEEPING IN BED EASILY AROUSABLE. A/O X4, ABLE TO MAKE NEEDS KNOWN. STABLE ON RA WITH NO SOB OR LABORED BREATHING. DENIES PAIN AT THIS TIME. ON PASSENGER TIRE INSPECTOR READING SINUS TACHYCARDIA 103. IV ACCESS LFA #22G SL, INTACT, PATENT, FLUSHING WELL. ALL CARE PROVIDED AND MEDS TOLERATED WELL. WILL ENDORSE JESSICA TO DAY SHIFT NURSE. Addendum: 10/09/22 at 0739 by SILVINA DUMONT RN CORRECTION: SINUS TACHYCARDIA WITH BBB, 110 HR
--- NOTE | 2022-10-09 07:15 | NUR ---
[facility] SH[facility] OPENING NOTES RECEIVED PATIENT LYING IN BED, SLEEPING, AROUSABLE TO VERBAL STIMULI, PATIENT IS A/OX4, ABLE TO MAKE HIS NEEDS KNOWN, APPEARS TO BE COMFORTABLE, DENIES ANY PAIN OR DISCOMFORT, PATIENT IS ON O2 AT 1 LPM VIA NASAL CANNULA, BREATHING EVEN AND UNLABORED, NO DISTRESS OR SOB NOTED, IV ACCESS ON RAC #20 SL, INTACT, PATENT AND FLUSHING WELL, PATIENT WITH EXTERNAL CLAMMER WITH CURRENT READING OF SR WITH BBB'S WITH A HEART RATE OF 88 BPM, NO CARDIAC DISTRESS NOTED, FALL AND SAFETY IN PLACE, BED ALARM ON, BED IN LOW AND LOCK POSITION, CALL LIGHT AND TABLE WITHIN EASY REACH, SIDE RAILS UP X2, WILL CONTINUE TO MONITOR.
[2022-10-09 07:30] VITALS: BP 146/72
[2022-10-09 11:30] VITALS: BP 138/86
[2022-10-09] MEDS ORDERED: LEVO500T90 PO (14:19)
[2022-10-09] MEDS ORDERED: PRED20TA PO (14:19)
--- NOTE | 2022-10-09 14:47 | NUR ---
RN CLOSING NOTES PATIENT DISCHARGE IN STABLE MEDICAL CONDITION, A/OX4, V/S TAKE, STABLE AND RECORDED, IV ACCESS RAC #20 REMOVED, DRY DRESSING APPLIED ON SITE WITH NO ACTIVE BLEEDING NOTED, NAME ARM BAND REMOVED, EXTERNAL CORPORATE OFFICER REMOVED AND RETURNED TO TELE DESK, NO SKIN ISSUE NOTED, ALL BELONGINGS CHECKED AND BELONGINGS LIST SIGNED BY PATEINT, HEALTH TEACHING AND DISCHARGE INSTRUCTIONS GIVEN AND VERBALIZED UNDERSTANDING, INSTRUCTED PATIENT TO MAKE AN APPOINTMENT WITH HIS PCP AND PULMONARY IN 1 WEEK, DISCUSSED PRESCRIPTIONS WITH PATIENT. INSTRUCTED PATIENT IN CASE OF EMERGENCY TO CALL 911 OR GO TO THE NEAREST ER, PATIENT LEFT UNIT AT 1445 VIA WHEELCHAIR WITH NO SIGNS OF DISTRESS, ACCOMPANIED BY JOSE CARLOS VELEZ MD AND CHARGE NURSE AWARE OF DISCHARGE. Addendum: 10/09/22 at 1451 by ROCK KAYCEE PICKENS RN CORRECTION: ANALYTICAL STRATEGIST NOTES PATIENT DISCHARGE IN STABLE MEDICAL CONDITION, A/OX4, V/S TAKE, STABLE AND RECORDED, IV ACCESS RAC #20 REMOVED, DRY DRESSING APPLIED ON SITE WITH NO ACTIVE BLEEDING NOTED, NAME ARM BAND REMOVED, EXTERNAL CORPORATE OFFICER REMOVED AND RETURNED TO TELE DESK, NO SKIN ISSUE NOTED, ALL BELONGINGS CHECKED AND BELONGINGS LIST SIGNED BY PATEINT, HEALTH TEACHING AND DISCHARGE INSTRUCTIONS GIVEN AND VERBALIZED UNDERSTANDING, INSTRUCTED PATIENT TO MAKE AN APPOINTMENT WITH HIS PCP AND PULMONARY IN 1 WEEK, DISCUSSED PRESCRIPTIONS WITH PATIENT. INSTRUCTED PATIENT IN CASE OF EMERGENCY TO CALL 911 OR GO TO THE NEAREST ER, PATIENT LEFT UNIT AT 1445 VIA WHEELCHAIR WITH NO SIGNS OF DISTRESS, ACCOMPANIED BY JOSE CARLOS VELEZ MD AND CHARGE NURSE AWARE OF DISCHARGE.
== END 2022-10-09 14:45 | disposition home or self-care (01) | DRG 140 ==
LOC: ER 15:57 → TELE 20:06
PROVIDERS: ADMIT Nurse Practitioner Acute Care; ATTEND Student in an Organized Health Care Education/Training Program
DX: J44.1 Chronic obstructive pulmonary disease with (acute) exacerbation (principal); J96.01 Acute respiratory failure with hypoxia; Z79.51 Long term (current) use of inhaled steroids; Z20.822 Contact with and (suspected) exposure to COVID-19; Z87.891 Personal history of nicotine dependence; Z83.3 Family history of diabetes mellitus; Z79.899 Other long term (current) drug therapy; Z98.890 Other specified postprocedural states
CPT/HCPCS: 36415; 36600; 70220-TC; 71045-TC; 80048-TC; 80076-TC; 82803-TC; 82962-TC; 83735-TC; 83880; 84100-TC; 84484-TC; 85025-TC; 87081-TC; 94799-TC; A4216; A4223; C9113; C9803; G0378; J1650; J1815; J1956; J2920; J2930; J7050

== ENCOUNTER 2022-12-17 22:57 | Emergency (ER) | payer MEDICAID ==
[~2022-12-17] VITALS: Ht 180.3 cm; Wt 89.8 kg
[~2022-12-17 22:57] MED LIST changes: -ALBU18HF2 IH; -ALBU18HF2 INH; -ALBU8.5H8 INH; -BUDE10.2 INH; -BUDE10.22 INH; +BUDE10.27 INH; +CETI-355 PO; -DOXY100C2 PO; -IPRA12.9 INH; +LEVO500T90 PO; -PRED50TA PO; -PRED5TAB48 PO
[2022-12-18] MEDS ORDERED: IPRATROPIUM NEB FS 0.5 MG/2.5 ML AMPUL.NEB ONE (00:25)
[2022-12-18] MEDS ORDERED: ALBUTEROL FS 2.5 MG/3 ML VIAL.NEB ONE (00:25)
[2022-12-18 00:26] VITALS: O2SAT 95
[2022-12-18] MEDS ORDERED: ALBUTEROL FS 2.5 MG/3 ML VIAL.NEB NEB ONE (00:30)
[2022-12-18] MEDS ORDERED: predniSONE 20 MG TABLET PO ONE (00:30)
[2022-12-18] MEDS ORDERED: IPRATROPIUM NEB FS 0.5 MG/2.5 ML AMPUL.NEB NEB ONE (00:30)
[2022-12-18 00:41] VITALS: O2SAT 99
[2022-12-18 00:42] VITALS: O2SAT 99
[2022-12-18 00:57] VITALS: O2SAT 99
[2022-12-18] MEDS ORDERED: predniSONE 20 MG TABLET ONE (01:07)
[2022-12-18] MEDS ORDERED: PRED50TA PO (02:11)
[2022-12-18] MEDS ORDERED: ALBU8.5H8 INH (02:11)
[2022-12-18 02:18] VITALS: BP 126/87; TEMP 98.5; O2SAT 97
== END 2022-12-18 02:19 | disposition home or self-care (01) ==
LOC: ER 22:58
DX: J44.1 Chronic obstructive pulmonary disease with (acute) exacerbation (principal); E11.9 Type 2 diabetes mellitus without complications; Z60.2 Problems related to living alone; Z79.51 Long term (current) use of inhaled steroids; Z79.899 Other long term (current) drug therapy
CPT/HCPCS: 99285; 94799; 94640 ×2; J7512

== ENCOUNTER 2023-06-10 22:21 | Emergency (ER) | payer MEDICAID, OTHER ==
[~2023-06-10] VITALS: Ht 180.3 cm; Wt 86.6 kg
[~2023-06-10 22:21] MED LIST changes: +ALBU8.5H8 INH; +PRED50TA PO
[2023-06-10] MEDS ORDERED: IPRATROPIUM NEB FS 0.5 MG/2.5 ML AMPUL.NEB NEB ONE (22:30)
[2023-06-10] MEDS ORDERED: predniSONE 20 MG TABLET PO ONE (22:30)
[2023-06-10] MEDS ORDERED: ALBUTEROL FS 2.5 MG/3 ML VIAL.NEB NEB ONE (22:30)
[2023-06-10] MEDS ORDERED: predniSONE 20 MG TABLET ONE (22:31)
[2023-06-10] MEDS ORDERED: ALBUTEROL FS 2.5 MG/3 ML VIAL.NEB ONE (22:40)
[2023-06-10] MEDS ORDERED: IPRATROPIUM NEB FS 0.5 MG/2.5 ML AMPUL.NEB ONE (22:40)
[2023-06-10 22:50] VITALS: O2SAT 97
[2023-06-11 00:05] VITALS: O2SAT 100
[2023-06-11] MEDS ORDERED: PRED20TA PO (00:14)
[2023-06-11] MEDS ORDERED: ALBU18HF2 INH (00:28)
[2023-06-11 00:33] VITALS: BP 143/102; TEMP 97.6; O2SAT 99
== END 2023-06-11 00:33 | disposition home or self-care (01) ==
LOC: ER 22:27
DX: J44.9 Chronic obstructive pulmonary disease, unspecified (principal); E11.9 Type 2 diabetes mellitus without complications; Z60.2 Problems related to living alone; Z79.51 Long term (current) use of inhaled steroids; Z79.899 Other long term (current) drug therapy
CPT/HCPCS: 99285; 71045; 94644; J7512

== ENCOUNTER 2024-01-31 21:23 | Emergency (ER) | payer OTHER ==
[~2024-01-31] VITALS: Ht 172.7 cm; Wt 74.8 kg
[~2024-01-31 21:23] MED LIST changes: +ALBU18HF2 INH
[2024-01-31] MEDS ORDERED: TETRAcaine 5 ML BOTTLE ONE (22:37)
[2024-01-31] MEDS ORDERED: FLUORESCEIN SODIUM OPHTH 1 EA STRIP ONE (22:37)
[2024-01-31] MEDS: FLUORESCEIN SODIUM OPHTH 1 EA STRIP OP ONE (22:39)
[2024-01-31] MEDS: TETRACAINE HCL 0.5% OPHTALMIC 15 ML BOTTLE OP ONE (22:39)
[2024-02-01] MEDS ORDERED: CIPR5DRO18 LEFTEYE (04:20)
[2024-02-01 04:27] VITALS: BP 137/88; TEMP 98.2; O2SAT 98
== END 2024-02-01 04:28 | disposition home or self-care (01) ==
LOC: ER 21:28
DX: H57.89 Other specified disorders of eye and adnexa (principal); J44.9 Chronic obstructive pulmonary disease, unspecified; E11.9 Type 2 diabetes mellitus without complications; F17.200 Nicotine dependence, unspecified, uncomplicated; Z98.890 Other specified postprocedural states; Z79.52 Long term (current) use of systemic steroids; Z79.899 Other long term (current) drug therapy; Z60.2 Problems related to living alone
CPT/HCPCS: 70480-TC

== ENCOUNTER 2024-02-06 17:34 | Emergency (ER) | payer OTHER ==
[~2024-02-06] VITALS: Ht 180.3 cm; Wt 86.2 kg
[~2024-02-06 17:34] MED LIST changes: +CIPR5DRO18 LEFTEYE
[2024-02-06 18:09] VITALS: TEMP 98.5
[2024-02-06] MEDS ORDERED: ONDANSETRON HCL/PF 4 MG/2 ML VIAL ONE (18:56)
[2024-02-06] MEDS: IV NS 0.9% 1,000 ML BAG IV ONE (19:05)
[2024-02-06 19:09] LABS: BASOPHILS # (AUTO) 0.1 K/uL (0.0-0.2); BASOPHILS % (AUTO) 1.3 % (0.0-2.0); EOSINOPHILS # (AUTO) 0.2 K/uL (0.0-0.7); EOSINOPHILS % (AUTO) 2.9 % (0.0-6.0); HEMATOCRIT 49 % (39-51); HEMOGLOBIN 16.5 g/dL (13.5-17.5); LYMPHOCYTES # (AUTO) 1.7 K/uL (0.8-4.8); LYMPHOCYTES % (AUTO) 21.9 % (20.0-44.0); MEAN CORPUSCULAR HEMOGLOBIN 30 PG (26.0-33.0); MEAN CORPUSCULAR HGB CONC 33 g/dl (31.0-36.0); MEAN CORPUSCULAR VOLUME 89 fL (80-96); MONOCYTES # (AUTO) 0.8 K/uL (0.1-1.30); MONOCYTES % (AUTO) 10.4 % (2.0-12.0); NEUTROPHILS # (AUTO) 4.9 K/uL (1.8-8.9); NEUTROPHILS % (AUTO) 63.5 % (43.0-81.0); PLATELET COUNT (AUTO) 351 K/uL (150-450); RED BLOOD CELL COUNT(AUTO) 5.57 MIL/uL (4.5-6.0); WHITE BLOOD COUNT (AUTO) 7.7 K/uL (4.3-11.0)
[2024-02-06] MEDS: ONDANSETRON HCL/PF 4 MG/2 ML VIAL IVP ONE (19:10)
[2024-02-06 19:16] LABS: CALCIUM, SERUM 9.6 mg/dL (8.5-10.1); CREATININE 1.3 mg/dL (0.6-1.3); POTASSIUM 4.1 mmol/L (3.5-5.1)
[2024-02-06 19:22] LABS: ALBUMIN 3.8 g/dL (3.4-5.0); BILIRUBIN,DIRECT 0.2 mg/dL (0.0-0.2); BILIRUBIN,TOTAL 1.2 mg/dL (0.2-1.0); TOTAL PROTEIN, SERUM 7.6 g/dL (6.4-8.2)
[2024-02-06 22:35] VITALS: BP 122/83; O2SAT 97
== END 2024-02-06 22:36 | disposition home or self-care (01) ==
LOC: ER 17:41
DX: R11.2 Nausea with vomiting, unspecified (principal); E11.9 Type 2 diabetes mellitus without complications; J44.9 Chronic obstructive pulmonary disease, unspecified; Z79.52 Long term (current) use of systemic steroids; Z87.891 Personal history of nicotine dependence; Z60.2 Problems related to living alone
CPT/HCPCS: 99285; 74176; 96374; 96361; 85025; 80048; 83690; 80076; 36415; J2405; J7030

== ENCOUNTER 2024-03-25 02:09 | Emergency (ER) | payer OTHER ==
[~2024-03-25] VITALS: Ht 180.3 cm; Wt 81.6 kg
[2024-03-25 02:48] VITALS: BP 131/89; TEMP 98.3; O2SAT 96
[2024-03-25] MEDS: IBUPROFEN 400 MG TABLET PO ONE (03:35)
== END 2024-03-25 03:35 | disposition home or self-care (01) ==
LOC: ER 02:10
DX: S43.492A Other sprain of left shoulder joint, initial encounter (principal); R03.0 Elevated blood-pressure reading, without diagnosis of hypertension; J44.9 Chronic obstructive pulmonary disease, unspecified; E11.9 Type 2 diabetes mellitus without complications; F17.200 Nicotine dependence, unspecified, uncomplicated; Z79.52 Long term (current) use of systemic steroids; Z60.2 Problems related to living alone; X58.XXXA Exposure to other specified factors, initial encounter; Y93.22 Activity, ice hockey; Y92.89 Other specified places as the place of occurrence of the external cause; Y99.8 Other external cause status
CPT/HCPCS: 73030-TC

== ENCOUNTER 2025-03-11 22:03 | Emergency (ER) | payer OTHER ==
[2025-03-12] MEDS ORDERED: CLOT15CR5 TP (17:17)
[2025-03-12] MEDS ORDERED: PRED20TA PO (17:17)
== END 2025-03-12 02:24 | disposition left against medical advice (07) ==
LOC: ER 22:07
DX: R21 Rash and other nonspecific skin eruption (principal); Z53.21 Procedure and treatment not carried out due to patient leaving prior to being seen by health care provider

== ENCOUNTER 2025-03-12 15:46 | Emergency (ER) | payer OTHER ==
[~2025-03-12] VITALS: Ht 180.3 cm; Wt 85.3 kg
[2025-03-12] MEDS ORDERED: FLUCONAZOLE (100 MG) 100 MG TABLET ONE (16:13)
[2025-03-12] MEDS: FLUCONAZOLE (100 MG) 100 MG TABLET PO ONE (16:26)
[2025-03-12] MEDS ORDERED: CLOT15CR5 TP (17:17)
[2025-03-12] MEDS ORDERED: PRED20TA PO (17:17)
[2025-03-12 17:41] VITALS: BP 155/97; TEMP 98.3; O2SAT 96
== END 2025-03-12 17:41 | disposition home or self-care (01) ==
LOC: ER 15:50
DX: R21 Rash and other nonspecific skin eruption (principal); C64.9 Malignant neoplasm of unspecified kidney, except renal pelvis; E11.9 Type 2 diabetes mellitus without complications; F17.200 Nicotine dependence, unspecified, uncomplicated; J44.9 Chronic obstructive pulmonary disease, unspecified; Z79.52 Long term (current) use of systemic steroids; Z60.2 Problems related to living alone
CPT/HCPCS: 99283; J7512; A6403